=== PATIENT | male | born 1950 | race Caucasian/White ===

== ENCOUNTER 2020-12-06 13:38 | Outpatient (CLI) | payer OTHER, SELFPAY ==
[2020-12-06 14:35] LABS: Erythrocyte Sedimentation Rate 15 mm/hr (0-20)
[2020-12-06 15:42] LABS: Free T4 Free Thyroxine 1.11 ng/mL (0.78-2.19)
[2020-12-07 15:54] LABS: Folic Acid 7.7 ng/mL (2.76->20)
[2020-12-08 14:31] LABS: ANA Cascade Screen Negative (Negative)
== END 2020-12-06 13:39 | disposition home or self-care (01) ==
LOC: ANHLAB 13:40
PROVIDERS: PCP Family Medicine; Visit Provider Nurse Practitioner Gerontology
DX: F03.90 Unspecified dementia, unspecified severity, without behavioral disturbance, psychotic disturbance, mood disturbance, and anxiety (principal)
CPT/HCPCS: 36415; 82607; 82746; 84439; 84443; 85652; 86038

== ENCOUNTER 2021-06-26 09:50 | Outpatient (CLI) | payer OTHER, SELFPAY ==
[2021-06-26 10:44] LABS: Hematocrit 42.3 % (42.0-52.0); Hemoglobin 13.9 g/dL (14.0-18.0); Mean Corpuscular HGB Conc 32.9 g/dl (32-36); Mean Corpuscular Hemoglobin 28.3 pg (26-34); Platelet Count Result 218 k/mm3 (150-375); Red Blood Count 4.92 M/mm3 (4.6-6.20); Red Cell Distribution Width 13.5 % (11.5-14.5); White Blood Count 6.2 K/mm3 (4.5-10.0)
[2021-06-26 10:44] LABS: Add Urine Microscopic? NO; Appearance Urine Clear (Clear); Bilirubin Urine Negative (Negative); Blood Urine Negative (Negative); Color Urine Yellow (Yellow); Glucose Urine UA Negative (Negative); Ketones Urine Negative (Negative); Leukocyte Esterase Ur Negative LEU/UL (NEGATIVE); Nitrate Urine Negative (Negative); Protein Urine Negative (Negative); Specific Grav Ur 1.023 (1.001-1.035); Urobilinogen Urine Negative mg/dL (<2.0)
[2021-06-26 10:57] LABS: Alanine Aminotransferase 16 U/L (4-50); Albumin Level 4.3 g/dL (3.5-5.1); Alkaline Phosphatase 53 U/L (38-126); Anion Gap 7 mmol/L (8-16); Aspartate Amino Transferase 24 U/L (17-59); Bilirubin,Total 0.4 mg/dL (0.2-1.3); Blood Urea Nitrogen 20 mg/dL (9-20); Calcium 8.8 mg/dL (8.4-10.2); Carbon Dioxide 28 mmol/L (22-30); Chloride 107 mmol/L (98-107); Cholesterol 195 mg/dL (0-200); Estimated Glomerular Filt Rate 59; Glucose 96 mg/dL (65-110); HDL Direct 40 mg/dL; Potassium 4.2 mmol/L (3.4-5.0); Sodium 142 mmol/L (137-145); Triglycerides 115 mg/dL (<150)
[2021-06-26 11:12] LABS: LDL Cholesterol Direct 103 mg/dL
[2021-06-26 12:05] LABS: Prostate Specific Antigen 6.9 ng/mL (< OR = 4.0)
== END 2021-06-26 09:51 | disposition home or self-care (01) ==
LOC: ANHLAB 09:53
PROVIDERS: PCP Family Medicine; Visit Provider Family Medicine
DX: E78.5 Hyperlipidemia, unspecified (principal); R35.1 Nocturia
CPT/HCPCS: 36415; 80053; 80061; 81003; 84153; 84443; 85027

== ENCOUNTER 2021-07-03 07:03 | Outpatient (CLI) | payer OTHER, SELFPAY ==
--- NOTE | ~2021-07-03 | CT_ITS ---
EXAMINATION: CT brain wo con EXAM DATE: 07/03/2021 07:23 INDICATION: F03.90 - Unspecified dementia without behavioral disturbance. TECHNIQUE: Spiral CT of the head was performed without contrast. Axial, coronal and sagittal images were reviewed. The dose-length product (DLP) for this examination was 605.33 mGy-cm. The exposure w as tailored according to patient size, and iterative reconstruction (ASIR) was used as additional dos e reduction technique. There is no prior study for comparison. FINDINGS: There is no acute intraparenchymal hemorrhage. No evidence of intraparenchymal brain mass lesion. No evidence of acute infarction. Please note that initial head CT has limited sensitivity f or small or acute infarctions. There is mild periventricular and subcortical hypodensity, nonspecific but probably related to small vessel ischemic disease. There is mild prominence of the sulci and v entricles related to cerebral atrophy. There is intracranial carotid arteriosclerosis. There are n o extra-axial collections. There is no mass effect or midline shift. Patient has had left-sided ocu lar lens surgery. Soft tissue is unremarkable. The visualized sinuses and mastoid air cells are we ll aerated. IMPRESSION: Mild age-related intracranial findings. Reviewed, dictated and finalized at location B.
== END 2021-07-03 07:04 | disposition home or self-care (01) ==
PROVIDERS: PCP Family Medicine; Visit Provider Family Medicine
DX: F03.90 Unspecified dementia, unspecified severity, without behavioral disturbance, psychotic disturbance, mood disturbance, and anxiety (principal); R45.4 Irritability and anger; R93.0 Abnormal findings on diagnostic imaging of skull and head, not elsewhere classified
CPT/HCPCS: 70450

== ENCOUNTER 2021-12-07 13:47 | Outpatient (CLI) | payer OTHER, SELFPAY ==
--- NOTE | ~2021-12-07 | XR_ITS ---
EXAMINATION: XR ribs BI 3V w CXR 2V INDICATION: Intermittent left-sided chest pain TECHNIQUE: PA and lateral views of the chest and 3 views of the bilateral ribs were obtained. COMPARISON: 03/14/2010 FINDINGS: The lungs are free of acute opacities. No pleural effusion or pneumothorax. The cardiomedia stinal silhouette is normal. There is moderate thoracic spondylosis. There are healed bilateral rib f ractures. No definite acute rib fracture is identified. There is partially imaged orthopedic hardware in the distal left humerus. IMPRESSION: 1. No acute cardiopulmonary abnormality or evidence of displaced rib fracture. Reviewed, dictated and finalized at location B.
== END 2021-12-07 13:48 | disposition home or self-care (01) ==
PROVIDERS: PCP Family Medicine; Visit Provider Physician Assistant
DX: R07.89 Other chest pain (principal)
CPT/HCPCS: 71046; 71110

== ENCOUNTER 2022-01-22 08:49 | Outpatient (CLI) | payer OTHER, SELFPAY ==
--- NOTE | ~2022-01-22 | CT_ITS ---
EXAMINATION: CT chest abdomen pelvis w con DATE: 01/22/2022 09:34 INDICATION: Prostate cancer TECHNIQUE: Computed tomography (CT) of the chest, abdomen, and pelvis was performed with 100 CC Omnip aque 350 intravenous contrast. Automated exposure control and iterative reconstruction technique were employed. Exam dose: 616.17 mGy-cm total exam DLP. COMPARISON: None FINDINGS: CHEST CT: There is no pulmonary infiltrate or consolidation or pulmonary mass lesion. Normal heart size. No t horacic aortic aneurysm or dissection. No hilar or mediastinal mass lesion or lymphadenopathy. No pericardial or pleural effusion. Prominent degenerative disc disease at C5-6 and C6-7. There is mild degenerative spurring of the tho racic spine. Bilateral old rib fracture deformities. ABDOMEN/PELVIS CT: 10 mm left hepatic cyst. No other hepatic, splenic, pancreatic, adrenal or renal space occupying mas s lesion is detected. No bile duct or pancreatic duct dilatation. There is a nonobstructing approximately 2 x 3.8 mm lower pole left renal calculus. Normal caliber of the abdominal aorta. No intraperitoneal or retroperitoneal or pelvic mass lesion o r lymphadenopathy or ascites. The prostate gland, urinary bladder and seminal vesicles appear unremarkable. Minimal left colonic diverticulosis; no CT evidence of diverticulitis. Normal appendix. No bowel obst ruction, bowel wall thickening, pneumatosis or intraperitoneal free air. Small bilateral fat-containing inguinal hernias. Multiple old compression fracture deformity of L3. Severe degenerative disease at L5-S1. No suspicious osteolytic or osteoblastic lesions. IMPRESSION: 10 mm left hepatic cyst Nonobstructing 2 x 3.8 mm lower pole left renal calculus Old compression fracture deformity of L3, bilateral old rib fracture deformities Severe degenerative disc disease at L5-S1 Reviewed, dictated and finalized at Location A. Reviewed, dictated and finalized at location A. IMPRESSION: 10 mm left hepatic cyst Nonobstructing 2 x 3.8 mm lower pole left renal calculus Old compression fracture deformity of L3, bilateral old rib fracture deformitie s Severe degenerative disc disease at L5-S1
--- NOTE | ~2022-01-22 | NM_ITS ---
EXAMINATION: NM bone scan whole body DATE: 01/22/2022 13:16 INDICATION: Prostate cancer TECHNIQUE: 23.8 mCi Tc-99m HDP was administered intravenously. Delayed whole-body scintigrams were o btained. COMPARISON: CT chest, abdomen and pelvis dated 01/22/2022 FINDINGS: Likely degenerative joint centered uptake at the right acromioclavicular and right sternoclavicular j oints and at the medial compartments of both knees. No abnormal uptake associated with a sclerotic le malik with spiculated margins of the left supra-acetabular region most likely representing a bone ced nd. No correlate identified on CT for focal mild increased uptake at the posterior tip of the right g reater trochanter. Mild uptake associated with severe degenerative disc disease at C6-C7. No other bell spicious foci of abnormal bone uptake to suggest metastatic disease. IMPRESSION: 1. Single small focus of mild increased uptake at the posterior right greater trochanter which is wit hout evident lytic or blastic bone lesion on the prior radiographs. Furthermore there are no other bell spicious bone lesions to suggest metastatic disease. Location would be most consistent with either en thesopathic in etiology. Reviewed, dictated and finalized at location B. IMPRESSION: 1. Single small focus of mild increased uptake at the posterior right greater t rochanter which is without evident lytic or blastic bone lesion on the prior ra diographs. Furthermore there are no other suspicious bone lesions to suggest me tastatic disease. Location would be most consistent with either enthesopathic i n etiology.
[2022-01-22 13:33] LABS: Estimated Glomerular Filt Rate > 60
== END 2022-01-22 08:50 | disposition home or self-care (01) ==
PROVIDERS: PCP Family Medicine; Visit Provider Radiology Radiation Oncology
DX: C61 Malignant neoplasm of prostate (principal); K76.89 Other specified diseases of liver; N20.0 Calculus of kidney; M51.37 Other intervertebral disc degeneration, lumbosacral region
CPT/HCPCS: 71260; 74177; 78306; A9561; Q9967

== ENCOUNTER 2022-01-30 11:47 | Outpatient (CLI) | payer OTHER, SELFPAY ==
--- NOTE | ~2022-01-30 | XR_ITS ---
EXAM: XR hip RT 2V w AP pelvis DATE: 01/30/2022 12:05 HISTORY: M25.551 - Pain in right hip, NO INJURY, RECENT CHEMO . COMPARISON: None available. FINDINGS: Normal mineralization. No fracture or dislocation. No lytic or blastic lesion. Degenerativ e disc disease in the lower lumbar spine. Mild bilateral hip osteoarthritis. No erosion or periosteal change. Soft tissues within normal limits. IMPRESSION: No acute osseous finding in the pelvis or right hip. Reviewed, dictated and finalized at location K. 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
== END 2022-01-30 11:48 | disposition home or self-care (01) ==
LOC: ANHIMG 11:49
PROVIDERS: PCP Family Medicine; Visit Provider Physician Assistant
DX: M25.551 Pain in right hip (principal)
CPT/HCPCS: 73502

== ENCOUNTER 2022-02-20 09:08 | Outpatient (CLI) | payer OTHER, SELFPAY ==
--- NOTE | ~2022-02-20 | XR_ITS ---
XR shoulder RT min 2V DATE: 02/20/2022 09:33 INDICATION: Right shoulder pain. No recent injury. TECHNIQUE: 4 views COMPARISON: None FINDINGS: There is osteopenia. Normal alignment at the acromioclavicular and glenohumeral joints. No fracture or dislocation, perios teal reaction or bone destruction or clinically significant calcification of the right shoulder joint . IMPRESSION: Osteopenia Reviewed, dictated and finalized at location B. 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
--- NOTE | ~2022-02-20 | XR_ITS ---
XR shoulder LT min 2V DATE: 02/20/2022 09:32 INDICATION: Shoulder pain TECHNIQUE: 4 views COMPARISON: 07/12/2013 left clavicle FINDINGS: Healed old left clavicular fractures including mid shaft and lateral aspect. Old healed lef t rib fractures. Normal alignment at the acromioclavicular and glenohumeral joints. No recent fracture or dislocation. There is osteopenia. No periosteal reaction or bone destruction. No clinically significant abnormal l eft shoulder soft tissue calcification. IMPRESSION: Old healed left clavicle and left rib fractures Osteopenia Reviewed, dictated and finalized at location B. R DISTRIBUTOR
[2022-02-20 09:42] LABS: Basophils Percent Auto 0.3 % (0.2-1.2); Eosinophils Absolute Auto 0.1 K/mm3 (0-0.3); Hematocrit 41.3 % (42.0-52.0); Hemoglobin 13.3 g/dL (14.0-18.0); Immature Granulocyte Absolute 0.03 K/mm3 (0.00-0.031); Immature Granulocyte Percent A 0.3 % (0-0.5); Lymphocytes Absolute Auto 1.45 K/mm3 (0.9-3.2); Lymphocytes Percent Auto 14.2 % (18.3-44.2); Mean Corpuscular HGB Conc 32.2 g/dl (32-36); Mean Corpuscular Hemoglobin 28.1 pg (26-34); Mean Corpuscular Volume 87.1 fl (80-100); Mean Platelet Volume 9.8 fl (7.4-10.4); Monocytes Absolute Auto 0.7 K/mm3 (0.1-0.6); Monocytes Percent Auto 6.5 % (2.6-8.5); Neutrophils Percent Auto 77.7 % (45.5-73.1); Platelet Count Result 276 k/mm3 (150-375); Red Blood Count 4.74 M/mm3 (4.6-6.20); Red Cell Distribution Width 12.7 % (11.5-14.5); White Blood Count 10.2 K/mm3 (4.5-10.0)
[2022-02-20 09:43] LABS: Alanine Aminotransferase 20 U/L (6-50); Alkaline Phosphatase 58 U/L (38-126); Anion Gap 11 mmol/L (8-16); Aspartate Amino Transferase 22 U/L (17-59); Bilirubin,Total 0.5 mg/dL (0.2-1.3); Blood Urea Nitrogen 25 mg/dL (9-20); CRP 2.8 mg/dL (<1.0); Carbon Dioxide 27 mmol/L (22-30); Chloride 103 mmol/L (98-107); Creatine Kinase 28 U/L (55-170); Estimated Glomerular Filt Rate > 60; Glucose 122 mg/dL (65-110); Potassium 4.5 mmol/L (3.4-5.0); Sodium 141 mmol/L (137-145)
[2022-02-20 10:30] LABS: Erythrocyte Sedimentation Rate 63 mm/hr (0-20)
== END 2022-02-20 09:09 | disposition home or self-care (01) ==
PROVIDERS: PCP Family Medicine; Visit Provider Physician Assistant
DX: M25.511 Pain in right shoulder (principal); M25.512 Pain in left shoulder; R29.898 Other symptoms and signs involving the musculoskeletal system; M85.811 Other specified disorders of bone density and structure, right shoulder; M85.812 Other specified disorders of bone density and structure, left shoulder
CPT/HCPCS: 36415; 73030; 80053; 82550; 85025; 85652; 86140

== ENCOUNTER 2022-03-13 14:27 | Outpatient (CLI) | payer OTHER, SELFPAY ==
[2022-03-13 16:37] LABS: Erythrocyte Sedimentation Rate 67 mm/hr (0-20)
== END 2022-03-13 14:28 | disposition home or self-care (01) ==
LOC: ANHLAB 14:28
PROVIDERS: PCP Family Medicine; Visit Provider Family Medicine
DX: M35.3 Polymyalgia rheumatica (principal)
CPT/HCPCS: 36415; 85652

== ENCOUNTER 2022-05-17 09:00 | Outpatient (RCR) | payer OTHER, SELFPAY ==
[2022-03-27 12:36] VITALS: BP_SYST 100; BP_SYST 90
--- NOTE | 2022-03-27 16:52 | BUPTOPEVAL1 ---
Assessment and note entered by Vonnie Kumar, PT Evaluation Information Assessment Status Evaluation Diagnosis Bilat shoulder pain, bilat hand stiffness Subjective Information Pt and (primary caregiver) present for evaluation. Pt reports both shoulder hurt and his hands are stiff. reports at times he has to use both hands to hold a cup because his hands are so stiff. Reported Pain Level Pain Score Moderate Pain: Cleaning Ellis Additional Pain Score Comments Shoulder pain: Pain never goes away completely. Pain increases with laying on shoulders. bilat hands: Pt reports hands feel tight and stiff Assessment PT Clinical Summary Pt presents w/ c/o bialteral shoulder pain, and bilateral hand stiffness. Pt demo's significantly decreased shoulder AROM and PROM R>L with open end -feels and pain. Pt also demos significantly reduced composite flexion R>L hands w/ c/o difficulty holding items at times. Pt and who is also primary caregiver report Pt is currently undergoing chemotherapy 5 days a week, also has a dx of Alzheimer's with behavioral disturbance. Pt and caregiver educated today findings, home exercise and postural awareness, and cryotherapy to reduce inflammation. Pt and caregiver also would prefer to attempt to address hand issues with PT initially while addressing shoulders knowing if therapy is minimally helpful, OT would be an option at a later date. THus considering co- morbidities, pt complaints, and scheduling, ptwould benefit from PT 2x weekly to address bilat shoulder and hand deficits to improve pain and function. Plan of Care Interventions Hot Pack/Cold Pack,Manual Therapy,Neuro Re- education,Paraffin Bath,Patient/Caregiver Educati, Therapeutic Activities,Therapeutic Exercise PT Services Indicated Yes Treatment Frequency and 2x weekly x 4 weeks Duration These treatments will address the objective and functional deficits as defined above. The patient will be advanced safely and appropriately in order for the patient to progress towards his/her prior level of function. Additional exercises will be introduced and as well as a comprehensive home exercise program upon discharge, if needed, ?to ensure carryover of functional gains achieved in the clinic. This treatment plan has been reviewed and agreement upon by the patient.
--- NOTE | 2022-04-05 12:33 | PCPTNOTE ---
Patient called to cancel due to having a bad day with his chemo treatment.
--- NOTE | 2022-04-10 12:04 | PCPTNOTE ---
Patient no showed this date. Attempted to call but no answer.
[2022-04-17 16:39] VITALS: BP_SYST 100; BP_SYST 90
--- NOTE | 2022-04-17 16:56 | PTOPEVAL1 ---
Assessment and note entered by Vonnie Kumar, PT Assessment Status Progress Report Diagnosis Bilat shoulder pain, bilat hand stiffness Subjective Information Pt and (primary caregiver) present for treatment and assists with answering questions. Pt reports hands feeling much better. At rest pt states no pain currently. reports pt states improved pain after using ice but that he brings his pain on himself by laying on right shoulder, not correcting his posture and doing his exercises . Reported Pain Level Pain Score 0: Self Report Assessment PT Clinical Summary Pt demo's improved ease of motion with shoulder ROM today. Demo's less tenderness and less pain with movements and appears less painful. Reports hands feel better. Pt and spouse educated on minimal progress in ROM shown. Educated on additional options such as ortho referral to discussed potential adjuncts to therapy and improve outcomes. Pt's POA/ reports she wants to see pt perform his HEP/posture consistently. Advised pt in written schedule and visual cues to assist pt in remembering/follow through with therapy advise secondary to cognitive status. Educated pt and will do another round of therapy and attempt to further progress ROM however if no significant progress shown, will have to discharge from therapy services. Plan of Care Interventions Hot Pack/Cold Pack,Manual Therapy,Neuro Re- education,Patient/Caregiver Educati,Therapeutic Activities,Therapeutic Exercise PT Services Indicated Yes Treatment Frequency and 2x weekly x 4 weeks Duration These treatments will address the objective and functional deficits as defined above. The patient will be advanced safely and appropriately in order for the patient to progress towards his/her prior level of function. Additional exercises will be introduced and as well as a comprehensive home exercise program upon discharge, if needed, ?to ensure carryover of functional gains achieved in the clinic. This treatment plan has been reviewed and agreement upon by the patient.
[2022-05-17 09:10] VITALS: BP_SYST 110; BP_SYST 93
--- NOTE | 2022-05-17 09:55 | PTOPDC ---
Assessment and note entered by Vonnie Kumar, PT Assessment Status Discharge Diagnosis Bilat shoulder pain Subjective Information Pt present stating was able to accomplish task of lists and post-it notes to assist in remembering required home plan. Pt sees his list and is doing better with exercises. States is also icing well at home. Pt reports has no pain sitting still. Pt reports still has a little pain when sleeping and rolls over on arm. reports pt is groaning less with UE dressing. Pt reports he is less stressed so she thinks new medication has helped with stress thus he is more aware of doing exercises and has less pain. Reported Pain Level Pain Score 0: Self Report Additional Pain Score Comments Reports last week with requiring tylenol arthritis strength, pt will sit on edge of chair and will rock back and forth. Does not come to and state is having pain. She will give him his medication then he will go to bed for the rest of the day. Assessment PT Clinical Summary Pt presents after two rounds of therapy for bilateral shoulder pain. Initial round of therapy pt also c/o hand stiffness and pain which improved significantly with second round of therapy focused on shoulder pain. Pt has shown some minimal improvement in active and passive ROM with bilat shoulders in the second round of therapy however this is marginal. He does appear to have times of less pain as he reports today has no pain at rest. However per he has had recent times when he was in significant levels of pain she does not report as severe. Pt has difficulty initiated pain control methods as he does not let her know when he is in pain nor does he initiate control methods independently thus is difficult to assess levels of intensity of pain reported. Considering difficulty participating in therapy, psychosocial factors, and limited improvement objectively, pt is thus being discharged from therapy due to maximal progress met at this time.
== END 2022-05-18 12:55 | disposition home or self-care (01) ==
LOC: ANHGOSHPT 09:00
PROVIDERS: PCP Family Medicine; Visit Provider Physician Assistant
DX: M25.511 Pain in right shoulder (principal); M25.512 Pain in left shoulder; R29.898 Other symptoms and signs involving the musculoskeletal system
CPT/HCPCS: 97110; 97112; 97140; 97162

== ENCOUNTER 2022-07-27 11:43 | Outpatient (CLI) | payer OTHER, SELFPAY ==
[2022-07-27 12:19] LABS: Appearance Urine Clear (Clear); Bilirubin Urine Negative (Negative); Blood Urine Negative (Negative); Color Urine Dark Yellow (Yellow); Glucose Urine UA Negative (Negative); Ketones Urine Negative (Negative); Leukocyte Esterase Ur Negative LEU/UL (NEGATIVE); Nitrate Urine Negative (Negative); Protein Urine Negative (Negative); Specific Grav Ur 1.021 (1.001-1.035); Urobilinogen Urine 0.2 mg/dL (<2.0)
[2022-07-27 12:19] LABS: Basophils Percent Auto 0.4 % (0.2-1.2); Eosinophils Percent Auto 0.9 % (0-4.4); Hematocrit 39.9 % (42.0-52.0); Hemoglobin 13.2 g/dL (14.0-18.0); Immature Granulocyte Absolute 0.01 K/mm3 (0.00-0.031); Immature Granulocyte Percent A 0.2 % (0-0.5); Lymphocytes Absolute Auto 0.94 K/mm3 (0.9-3.2); Mean Corpuscular HGB Conc 33.1 g/dl (32-36); Mean Corpuscular Hemoglobin 28.6 pg (26-34); Mean Corpuscular Volume 86.6 fl (80-100); Mean Platelet Volume 9.2 fl (7.4-10.4); Monocytes Absolute Auto 0.4 K/mm3 (0.1-0.6); Monocytes Percent Auto 9.8 % (2.6-8.5); Neutrophils Percent Auto 67.7 % (45.5-73.1); Platelet Count Result 202 k/mm3 (150-375); Red Blood Count 4.61 M/mm3 (4.6-6.20); White Blood Count 4.5 K/mm3 (4.5-10.0)
[2022-07-27 12:32] LABS: Add Urine Microscopic? NO
[2022-07-27 14:39] LABS: Iron 88 ug/dL (49-181)
[2022-07-27 14:42] LABS: Sodium 141 mmol/L (137-145)
[2022-07-27 14:48] LABS: Percent Iron Saturation 33 % (20-50)
[2022-07-27 14:50] LABS: Alanine Aminotransferase 24 U/L (6-50); Albumin Level 4.4 g/dL (3.5-5.1); Alkaline Phosphatase 61 U/L (38-126); Anion Gap 9 mmol/L (8-16); Aspartate Amino Transferase 24 U/L (17-59); Bilirubin,Total 0.8 mg/dL (0.2-1.3); Blood Urea Nitrogen 22 mg/dL (9-20); Calcium 9.3 mg/dL (8.4-10.2); Carbon Dioxide 28 mmol/L (22-30); Chloride 104 mmol/L (98-107); Estimated Glomerular Filt Rate > 60; Glucose 109 mg/dL (65-110); Potassium 4.3 mmol/L (3.4-5.0)
[2022-07-27 17:25] LABS: Folic Acid > 20.0 ng/mL (2.76->20)
== END 2022-07-27 11:44 | disposition home or self-care (01) ==
PROVIDERS: PCP Family Medicine; Visit Provider Physician Assistant
DX: Z00.00 Encounter for general adult medical examination without abnormal findings (principal); F03.90 Unspecified dementia, unspecified severity, without behavioral disturbance, psychotic disturbance, mood disturbance, and anxiety; C61 Malignant neoplasm of prostate; D64.9 Anemia, unspecified
CPT/HCPCS: 36415; 80053; 81003; 82607; 82728; 82746; 83540; 83550; 84443; 85025; 87086

== ENCOUNTER 2022-09-18 13:44 | Outpatient (CLI) | payer OTHER, SELFPAY ==
[2022-09-18 14:32] LABS: Erythrocyte Sedimentation Rate 44 mm/hr (0-20)
== END 2022-09-18 13:45 | disposition home or self-care (01) ==
PROVIDERS: PCP Family Medicine; Visit Provider Family Medicine
DX: M35.3 Polymyalgia rheumatica (principal)
CPT/HCPCS: 36415; 85652

== ENCOUNTER 2023-09-17 10:42 | Outpatient (RCR) | payer MEDICARE, OTHER, SELFPAY ==
[2023-09-17 10:58] VITALS: BMI 29.4
== END 2023-12-06 08:58 | disposition home or self-care (01) ==
LOC: ANHDMC 10:42
PROVIDERS: PCP Family Medicine; Visit Provider Physician Assistant
DX: E66.3 Overweight (principal); G30.9 Alzheimer's disease, unspecified; F02.818 Dementia in other diseases classified elsewhere, unspecified severity, with other behavioral disturbance; Z71.3 Dietary counseling and surveillance
CPT/HCPCS: 97802

== ENCOUNTER 2023-09-19 13:12 | Outpatient (CLI) | payer MEDICARE, SELFPAY ==
--- NOTE | ~2023-09-19 | XR_ITS ---
EXAM: XR knee LT min 4V DATE: 09/19/2023 13:47 HISTORY: M25.562 - Pain in left knee . COMPARISON: None available. FINDINGS: Decreased mineralization. No fracture or dislocation. No lytic or blastic lesion. Severe m edial joint space narrowing. Mild tricompartmental osteophytosis. No erosion or periosteal change. So ft tissues within normal limits. Linear radiopacity in the midline and lateral tibial plateau extendi ng towards the tibial spine, may represent surgical hardware or less likely a radiopaque foreign body . IMPRESSION: Tricompartmental osteoarthritis, severe in the medial compartment. Postsurgical hardware versus radiopaque foreign body, correlate with surgical and trauma history. Reviewed, dictated and finalized at location K. IMPRESSION: Tricompartmental osteoarthritis, severe in the medial compartment. Postsurgical hardware versus radiopaque foreign body, correlate with surgical a nd trauma history.
== END 2023-09-19 13:13 ==
PROVIDERS: PCP Family Medicine; Visit Provider Physician Assistant
DX: M17.12 Unilateral primary osteoarthritis, left knee (principal)
CPT/HCPCS: 73564

== ENCOUNTER 2024-03-12 10:48 | Outpatient (CLI) | payer MEDICARE, OTHER, SELFPAY ==
[2024-03-12 12:00] LABS: Add Urine Microscopic? YES; Appearance Urine Clear (Clear); Bacteria Urine None Seen /hpf; Bilirubin Urine Negative (Negative); Blood Urine Negative (Negative); Color Urine Dark Yellow (Yellow); Glucose Urine UA Negative (Negative); Ketones Urine Trace mg/dL (Negative); Leukocyte Esterase Ur 1+ LEU/UL (Negative); Nitrate Urine Negative (Negative); Non Pathogenic Casts 0-2; Protein Urine Trace mg/dL (Negative); RBC Urine 0-2 /hpf (0-2); Specific Grav Ur 1.023 (1.001-1.035); Squamous Epithelial Cell Urine None Seen /hpf (Few); Urobilinogen Urine 0.2 mg/dL (<2.0)
[2024-03-12 12:16] LABS: Alanine Aminotransferase 18 U/L (6-50); Albumin Level 4.2 g/dL (3.5-5.1); Alkaline Phosphatase 71 U/L (38-126); Anion Gap 6 mmol/L (4-12); Aspartate Amino Transferase 22 U/L (17-59); Bilirubin,Total 0.7 mg/dL (0.2-1.3); Blood Urea Nitrogen 19 mg/dL (9-20); Carbon Dioxide 26 mmol/L (22-30); Chloride 112 mmol/L (98-107); Cholesterol 215 mg/dL (0-200); Estimated Glomerular Filt Rate > 60; Glucose 129 mg/dL (65-110); HDL Direct 30 mg/dL; Potassium 4.2 mmol/L (3.4-5.0); Sodium 144 mmol/L (137-145); Triglycerides 338 mg/dL (<150)
[2024-03-12 12:28] LABS: LDL Cholesterol Direct 109 mg/dL
== END 2024-03-12 10:49 | disposition home or self-care (01) ==
PROVIDERS: PCP Family Medicine; Visit Provider Physician Assistant
DX: E78.5 Hyperlipidemia, unspecified (principal); G30.9 Alzheimer's disease, unspecified; F02.818 Dementia in other diseases classified elsewhere, unspecified severity, with other behavioral disturbance; Z00.00 Encounter for general adult medical examination without abnormal findings; F02.80 Dementia in other diseases classified elsewhere, unspecified severity, without behavioral disturbance, psychotic disturbance, mood disturbance, and anxiety
CPT/HCPCS: 36415; 80053; 80061; 81001

== ENCOUNTER 2024-08-04 10:03 | Outpatient (CLI) | payer MEDICARE, OTHER, SELFPAY ==
--- OUTSIDE RECORDS SUMMARY | 2024-08-04 10:18 | XMS_ITS ---
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 This section includes the names of all active insurance providers for the patient. Insurance Provider Type of Coverage Plan Name Start of Policy Coverage End of Policy Coverage Group Number Member ID Insurance Provider's Telephone Number Policy Newby's Name Patient's Relationship to Policy Newby MEDICARE (WNR) [place]ICARE [place]) PART A Feb 22, 2014 PART A [id number] LUKAS TREVINO PATIENT Selected Encounter This section includes the information on record at [place] for the Encounter. Date/Time Encounter Type Encounter Description Reason Pro vider Source Jul 06, 2024 09:00 AM OFFICE O/P EST MOD 30 MIN PSYCHOGERIATRIC - INDIVIDUAL ICD-10-CM F03.90 Unsp dementia, unsp severity, without beh/psych/moo d/anx GURUSIDDALESHA,P RATIBHA N IHE Encounter Template Text not used by [facility] Assessments - Encounter Diagnoses This section includes the primary and secondary diagnoses documented for the Encounter. Date/Time Primary/Secondary Diagnosis Diagnosis Name Provider Source Jul 06, 2024 09:36 AM PRIMARY Unsp dementia, unsp severity, without beh/psych/mood/a nx YLOANDACO ATIBTRINITY N [facility] Plan of Treatment: Future Appointments (+ 6 months) and Future Tests (+/- 45 days) The Plan of Treatment section includes [facility] care activities for the [facility] [place] [facility] This section includes future appointments and future orders which are active, pending or scheduled. Future Appointments This section includes appointments that were scheduled to occur 6 months from the date of the Encounter, up to a maximum of 20 appointments. The data comes from all [facility]. Appointment Date/Time Appointment Type Appointme nt Facility Name July 24, 2024 10:00 AM AMBULATORY - MEDICINE [facility] Oct 13, 2024 10:00 AM AMBULATORY - REHAB MEDICIN E [facility] Nov 09, 2024 09:00 AM AMBULATORY - NONE [facility] Active, Pending, and Scheduled Orders This section includes a listing of several types of active, pending, and scheduled orders, including clinic medications orders, diagnostic test orders, procedure orders and consult orders; where the start date of the order is 45 days before the date of the Encounter or 45 days after the date of theEncounter. The data comes from all [facility]. Test Date/Time Test Type Test Details Facility Name May 26, 2024 10:19 AM Consult Order [facility]/HOME HEALTH AIDE [facility] Cons Marine [employer] Consultant's Choice [facility] Social History: Smoking Status (Most current) and Tobacco Use (All prior to encounter date) This section includes the most current, and the historical, smoking and tobacco- related health factors from the [place] facility where the Encounter took place. Current Smoking Status This section includes the most current smoking, or tobacco-related health factor, from the [place] facility where the Encounter took place. Date/Time Current Smoking Status Comment Facil ity Apr 14, 2024 11:00 AM [place]-TOBACCO NEVER [place] SED CIGARETTES [facility] Tobacco Use History This section includes a history of the smoking, or tobacco-related health factors, that were collected on or before the date of the Encounter. The data comes from the [place] facility where the Encounter took place. Date/Time Smoking Status/Tobacco Use Comment F acility Apr 14, 2024 11:00 AM [facility] TYPE [facility] Advance Directives: All historical and current Section Date Range: From patient's date of to the date document was created. This section includes ALL of a patient's completed or amended [place] Advance and Rescinded Directives. The entries below indicate that a directive exists for the patient, but an actual copy is not included with this document. The data comes from all [place] facilities. Date Advance Directives Provider Source Mar 15, 2023 ADVANCE DIRECTIVE BINU SWANSON CLAIR [facility] Encounter Notes: All associated encounter notes This section contains the clinical notes associated to the Encounter. Date/Time Encounter Note(s) Provider Source Jul 06, 2024 09:02 AM MENTAL HEALTH NOTE : LOCAL TITLE: [facility] CC NEEDS ASSESSMENT AND INTERVENTION PLAN STANDARD TITLE: MENTAL HEALTH NOTE DATE OF NOTE: JUL 06, 2024@09:02 ENTRY DATE: JUL 06, 2024@09:02:31 AUTHOR: OLIVIA SLADE COSIGNER: URGENCY: STATUS: COMPLETED Visit conducted by synchronous telehealth. Patient verbal consent obtained. Location/emergency number confirmed. Environment surveyed and all participants identified. Virtual conference room locked. Minden confirmed being in a private and safe space. Minden's location during session: Home: [address] [place] [address] [place] [address] Minden's telephone number during session: Emergency number for 's location during session: Phone: E911 (national) [phone] Follow-up [facility] Care Coordination Intervention Plan Assessment and review of interventions in progress: SIGNIFICANT CHANGES TO CARE COORDINATION NEEDS: Current assessed care coordination needs: Follow-up as clinically indicated: reminders Time spent: 5 minutes V15-[facility] Video Connect/Video to Home: [facility] Video Connect (VVC)/Video to home template v1.5 Visit conducted by synchronous telehealth. Location/emergency number confirmed. Environment surveyed and all participants identified. Virtual conference room locked. VVC/Video to home appointment information: The following items were reviewed: - The nature of telehealth, its benefits, and risks. - Confidentiality and its limits. - The importance of having a confidential location for the service. - The emergency plan. - The appointment should be treated like an in person appointment (no smoking or driving during session, showing up fully dressed, etc.) *The Virtual Medical Room was locked for this encounter. *A survey of the environment was conducted and it is appropriate to conduct a VVC appointment. *Confirmed Minden's Non-VA location for this appointment: 's Home [address] [place] [address] Address and phone number verified with . Address: Phone: Emergency Contact: Name: Mahesh Others were present at this appointment(caregiver, family member, etc.) Details: see above and caregiver is also part of VVC appt * was notified of right to decline Telehealth services and eligibility for other options. consented to be seen via VVC. EMERGENCY PLAN In the event of an emergency, the Minden or family will call emergency services, if capable. The Teleprovider will remain in the virtual medical room until emergency response arrives and handoff to emergency services is complete. If is unable to make emergency call, the Teleprovider is to call the national E911 service at [phone] and ask to be connected to emergency services for the 's location. Minden's Crisis Line: Dial [phone] then press 1, or text [phone] Office of Connected Care Helpdesk ([facility]): [phone] or [phone] Laterality (patient's right and/or left side) confirmed prior to intervention during video visit. Verified Provider's location and contact information for this appointment: [address] [address] x [phone] /es/ OLIVIA SLADE RN Registered Nurse Signed: 07/06/2024 09:06 OLIVIA SLADE [facility] Jul 06, 2024 07:54 AM PSYCHIATRY OUTPATI ENT NOTE: LOCAL TITLE: MENTAL HEALTH [facility]ING RESOURCES TEAM ST STANDARD TITLE: PSYCHIATRY OUTPATIENT NOTE DATE OF NOTE: JUL 06, 2024@07:54 ENTRY DATE: JUL 06, 2024@07:54:35 AUTHOR: KELSY GUERRERO COSIGNER: URGENCY: STATUS: COMPLETED [facility] Video Connect (VVC)/Video to home template v1.5 Visit conducted by synchronous telehealth. Location/emergency number confirmed. Environment surveyed and all participants identified. Virtual conference room locked. VVC/Video to home appointment information: The following items were reviewed: - The nature of telehealth, its benefits, and risks. - Confidentiality and its limits. - The importance of having a confidential location for the service. - The emergency plan. - The appointment should be treated like an in person appointment (no smoking or driving during session, showing up fully dressed, etc.) *The Virtual Medical Room was locked for this encounter. *A survey of the environment was conducted and it is appropriate to conduct a VVC appointment. *Confirmed Minden's Non-VA location for this appointment: 's Home [address] [place] [address] Address and phone number verified with Minden. Address: Phone: Emergency Contact: Name: ,caregiver . Phone: Others were present at this appointment(caregiver, family member, etc.) Details: and caregiver. *Minden was notified of right to decline Telehealth services and eligibility for other options. consented to be seen via VVC. EMERGENCY PLAN In the event of an emergency, the or family will call emergency services, if capable. The Teleprovider will remain in the virtual medical room until emergency response arrives and handoff to emergency services is complete. If is unable to make emergency call, the Teleprovider is to call the national E911 service at [phone] and ask to be connected to emergency services for the Minden's location. Mind[place]'s Crisis Line: Dial [phone] then press 1, or text [phone] Office of Connected Care Helpdesk ([facility]): [phone] or [phone] Laterality (patient's right and/or left side) confirmed prior to intervention during video visit. Verified Provider's location and contact information for this appointment: [place] [address] x [facility] Name..................LUKAS THACKER CHRISTINE Age...................73 Sex...................MALE SSN................... Today's Date..........JUL 06, 2024 Service Connection....Service Connected: Yes (50%) ALLERGIES: Patient has answered NKA OUTPATIENT MEDICATIONS: Active Outpatient Medications (excluding Supplies): Issue Date Status Last Fill Active Outpatient Medications Refills Expiration 1) ARIPIPRAZOLE 10MG TAB Qty: 15 for 30 ACTIVE Issu:04-16-23 days Sig: TAKE ONE-HALF TABLET BY Refills: 1 Last:04-16-23 MOUTH ONCE A DAY MOOD STABLIZER Expr:04-16-24 2) ATORVASTATIN CALCIUM 40MG TAB Qty: 45 ACTIVE Issu:04-15-23 for 90 days Sig: TAKE ONE-HALF TABLET Refills: 1 Last:04-16-23 BY MOUTH EVERY EVENING Expr:04-15-24 3) CHOLECALCIF 50MCG (D3-2,000UNIT) TAB ACTIVE Issu:04-15-23 Qty: 100 for 90 days Sig: TAKE ONE Refills: 2 Last:04-16-23 TABLET BY MOUTH ONCE A DAY Expr:04-15-24 4) DONEPEZIL HCL 10MG TAB Qty: 30 for 30 ACTIVE Issu:04-09-23 days Sig: TAKE ONE TABLET BY MOUTH AT Refills: 1 Last:04-09-23 BEDTIME FOR ALZHEIMER DISEASE (JUST Expr:04-09-24 BEFORE BEDTIME) 5) ESCITALOPRAM OXALATE 20MG TAB Qty: 15 ACTIVE Issu:04-09-23 for 30 days Sig: TAKE ONE-HALF TABLET Refills: 1 Last:04-09-23 BY MOUTH ONCE A DAY FOR DEPRESSION Expr:04-09-24 6) MEMANTINE HCL 10MG TAB Qty: 180 for 90 ACTIVE Issu:04-09-23 days Sig: TAKE ONE TABLET BY MOUTH Refills: 3 Last:04-09-23 EVERY MORNING AND EVENING Expr:04-09-24 7) MULTIVITAMIN CAP/TAB Qty: 100 for 90 ACTIVE Issu:03-13-23 days Sig: TAKE 1 TABLET BY MOUTH ONCE Refills: 1 Last:03-13-23 A DAY FOR NUTRITION/DIETARY Expr:03-13-24 SUPPLEMENTATION Issue Date Status Last Fill Pending Outpatient Medications Refills Expiration 1) ARIPIPRAZOLE 10MG TAB Qty: 15 Sig: PENDING TAKE ONE-HALF TABLET BY MOUTH ONCE A Refills: 0 DAY 2) DIVALPROEX NA 125MG SPRINKLE CAP Qty: PENDING 120 Sig: TAKE TWO CAPSULES CONTENT Refills: 0 OVER FOOD BY MOUTH AT BEDTIME 9 Total Medications PROBLEM LIST: 1) Exposure to potentially hazardous substance 2) Dementia ([facility] [id number]) VITAL SIGNS: Pulse.................84 (04/10/2023 12:43) Temperature...........97.9 F [36.6 C] (04/10/2023 12:43) Blood Pressure........135/90 (04/10/2023 12:43) Pain..................0 (04/10/2023 12:43) Weight................211. 4 lb [95.89 kg] (04/10/2023 12:43) Patient Weight History - Last Four 1. 211.4 lbs. / 95.9 kg. on APR 10, 2023@12:43:05 2. 213.6 lbs. / 96.9 kg. on MAR 13, 2023@08:34:58 LAB VALUES: CBC WBC 5.7 10*3/uL 03/13/2023 10:15 RBC 4.96 10*6/uL 03/13/2023 10:15 HGB 14.2 g/dL 03/13/2023 10:15 HCT 43.7 % 03/13/2023 10:15 MCV 88.1 fL 03/13/2023 10:15 MCH 28.6 pg 03/13/2023 10:15 MCHC 32.5 L g/dL 03/13/2023 10:15 RDW 13.2 % 03/13/2023 10:15 PLT 210 10*3/uL 03/13/2023 10:15 MPV 10.2 fL 03/13/2023 10:15 NEUTROPHILS, AUTO % 75 % 03/13/2023 10:15 LYMPHOCYTES, AUTO % 16 % 03/13/2023 10:15 MONOCYTES, AUTO % 8 % 03/13/2023 10:15 EOSINOPHILS, AUTO % 1 % 03/13/2023 10:15 BASOPHILS, AUTO % 1 % 03/13/2023 10:15 NEUTROPHILS, ABSOLUTE 4.29 10*3/uL 03/13/2023 10:15 LYMPHOCYTES, ABSOLUTE 0.89 10*3/uL 03/13/2023 10:15 MONOCYTES, ABSOLUTE 0.45 10*3/uL 03/13/2023 10:15 EOSINOPHILS, ABSOLUTE 0.05 10*3/uL 03/13/2023 10:15 BASOPHILS, ABSOLUTE 0.04 10*3/uL 03/13/2023 10:15 CHEM 7 SODIUM 140 mEq/L 03/13/2023 10:15 POTASSIUM 4.1 mEq/L 03/13/2023 10:15 CHLORIDE 107 mEq/L 03/13/2023 10:15 UREA NITROGEN 15.2 mg/dL 03/13/2023 10:15 CREATININE 1.09 mg/dL 03/13/2023 10:15 CALCIUM 9.3 mg/dL 03/13/2023 10:15 CARBON DIOXIDE 24 mEq/L 03/13/2023 10:15 GLUCOSE 112 H mg/dL 03/13/2023 10:15 EGFR (CKD-EPI 2020) 71.2 03/13/2023 10:15 HEPATIC PANEL No data available TRIGLYCERIDES...273 mg/dL H (03/13/23 10:15) CHOLESTEROL.....CHOLESTERO L 212 H mg/dL 03/13/2023 10:15 TSH.............TSH 1.862 uIU/mL 03/13/2023 10:15 LITHIUM.........____ VALPROIC ACID...____ DIAGNOSIS BEING TREATED THIS VISIT: Major NCD severe with behavioral disturbances ANY COMPLAINTS/PROBLEMS....... No initial eval mar 2023 72yrs old white male with no prior psych admission, no h/o substance abuse, family h/o dementia-late onset. has h/o poor memory for past 10/12yrs with worsening memory and behavioral problems in past 2-3yrs. seen by private psychiatrist and has been treated with psychotropic meds with good control of mood and behavior. Seen in our clinic for medication management. seen today for f/u with and he reports doing fine and denies any problems. is dysphasic with limited verbal communications. He denies any pain or discomofort. denies being anxious or depressed. no psychotic symptoms reported. no agitation. reports that last week, had walker out of the front door, but she could find found him their front yard and had to bring him back inside as the weather was cold. also reports that the did not sleep without the TV and so she talked to pcp and he has TV during his bedtime and is sleeping well. He is eating well and compliant with meds. Denies any agitation or aggression. seen sitting next to was alert, calm, cooperative, nonspontaneous and minimal speech . not oriented to to place or time . Denies feeling anxious or depressed and denies any psychotic symptoms. is primary caregiver and also has cargiver come and help him 3days a week. dispenses meds and he is compliant. ANY MEDICATION SIDE EFFECT....No APPETITE.................. ....Good SLEEP..................... ....Good MENTAL STATUS: MOOD/AFFECT............... ..Normal mood- alright affect- calm ,appropriate. DELUSIONS/HALLUCINATIONS.. ..Absent denies SUICIDAL/AGGRESSIVE....... ..Absent denies ALERT & ORIENTED X3 WITH GOOD CONCENTRATION........No COMMENTS: None MEDICATION CHANGE.............No SUPPORTIVE PSYCHOTHERAPY......Yes GAF:No previous GAF entered. Current Gaf: na TREATMENT PLAN: COMMENTS: NCD/behavioral problems- continues same meds- Discussed with that it reportedly sleeping now with TV in room. Wandered outside the house last week. to change lokcs on exit doors and will order ID bracelet. f/u in 3months. call if problems before that. INSTRUCTIONS GIVEN TO PATIENT/FAMILY: Report medication side effects promptly No alcohol/illicit drug use with medication Follow up with Primary Care Provider If symptoms get worse, call clinic or Emergency Room as appropriate seen for total of 30min with 18min of supportive therapu /es/ JESUS GUERRERO MD Staff Physician, Psychiatry Signed: 07/06/2024 09:36 KELSY GUERRERO [facility]
--- OUTSIDE RECORDS SUMMARY | 2024-08-04 10:18 | XMS_ITS | Continuity of Care Document ---
Author Name [facility] Organization [facility] Care Team Providers Care Skip Hoist Operator Name Role Phone [facility] Unavailable Unavailable Problems Combined list of problems from Department of Defense and Veterans Affairs facilities. It does not include entries that were removed or entered in error. 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 Diagnosis [facility] Diagnosis: ICD-10-CM F03.918 Unsp dementia, unsp severity, with other behavioral disturb Active Diagnosis [facility] Diagnosis: ICD-10-CM F02.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, unsp sev, with oth beh distrb Active Diagnosis [facility] Diagnosis: ICD-10-CM F02.B18 Dem in other dis classd elswhr, mod, with other beh disturb Active Diagnosis [facility] Diagnosis: ICD-10-CM Z71.9 Counseling, unspecified Active Diagnosis [facility] Diagnosis: ICD-10-CM Z23 Encounter for immunization Active Diagnosis [facility] Medications Combined list of outpatient medications from Department of [facility] and [facility] facilities.Medications provided include 1) outpatient medications from the last 15 months, and 2) patient-reported medications. Medication Details Route Status Patient Instructions Prescription Expires Prescription Number Last Dispense Date Ordering Provider Order Date Order Qty Source ARIPIPRAZOL E 10MG TAB TAKE ONE-HALF TABLET BY MOUTH ONCE A DAY MOOD STABLIZE R ORAL DISCONT INUED 05/21/2024 [id number] RAE BENITEZPRATI BHA N 2023 15 [facility] ARIPIPRAZOL E 5MG TAB TAKE ONE TABLET BY MOUTH ONCE A DAY MOOD STABLIZE R ORAL ACTIVE 07/07/2025 [id number] 5 GURUSIDDA EMMANUELPRATI BHA N 2024 30 [facility] ARIPIPRAZOL E 5MG TAB TAKE ONE TABLET BY MOUTH ONCE A DAY MOOD STABLIZE R ORAL DISCONT INUED 07/28/2024 [id number] 5 SIDDJoaquin BENITEZPRATI BHA N 2024 30 [facility] ARIPIPRAZOL E 5MG TAB TAKE ONE TABLET BY MOUTH ONCE A DAY MOOD STABLIZE R ORAL DISCONT INUED 07/01/2024 [id number] 5 GURUSIDDA EMMANUELPRATI BHA N 2024 30 [facility] ARIPIPRAZOL E 5MG TAB TAKE ONE TABLET BY MOUTH ONCE A DAY MOOD STABLIZE R ORAL DISCONT INUED 05/07/2024 [id number] 5 GURUSIDDA EMMANUELPRATI BHA N 2024 30 [facility] ARIPIPRAZOL E 5MG TAB TAKE ONE TABLET BY MOUTH ONCE A DAY MOOD STABLIZE R ORAL DISCONT INUED 04/30/2024 [id number] 5 DELICIA MIGUEL ACE M 2024 30 [facility] ARIPIPRAZOL E 5MG TAB TAKE ONE TABLET BY MOUTH ONCE A DAY MOOD STABLIZE R ORAL DISCONT INUED 03/26/2024 [id number] 4 DELICIA MIGUEL ACE M 2023 30 [facility] ARIPIPRAZOL E 5MG TAB TAKE ONE TABLET BY MOUTH ONCE A DAY MOOD STABLIZE R ORAL DISCONT INUED 02/21/2024 [id number] LAMONT,HOR DONI M 2023 30 [facility] ARIPIPRAZOL E 5MG TAB TAKE ONE TABLET BY MOUTH ONCE A DAY MOOD STABLIZE R ORAL DISCONT INUED 01/19/2024 [id number] LAMONT,HOR DONI M 2023 30 [facility] ARIPIPRAZOL E 5MG TAB TAKE ONE TABLET BY MOUTH ONCE A DAY MOOD STABLIZE R ORAL DISCONT INUED 10/05/2023 [id number] 4 LAMONT,HOR DONI M 2023 30 [facility] ARIPIPRAZOL E 5MG TAB TAKE ONE TABLET BY MOUTH ONCE A DAY MOOD STABLIZE R ORAL DISCONT INUED 06/20/2023 [id number] ADA BELTRAN BHA N 2023 30 [facility] ATORVASTATI N CA 40MG TAB TAKE ONE-HALF TABLET BY MOUTH EVERY EVENING ORAL ACTIVE 05/14/2025 [id number] 5 LAMONT,DELICIA DONI M 2024 45 [facility] ATORVASTATI N CA 40MG TAB TAKE ONE-HALF TABLET BY MOUTH EVERY EVENING ORAL DISCONT INUED 04/15/2024 [id number] OKIN KAYLEIGH D 2023 45 [facility] DIVALPROEX NA 125MG CAP,SPRINKL E TAKE ONE CAPSULE CONTENT OVER FOOD BY MOUTH AT BEDTIME AND TAKE ONE CAPSULE EVERY MORNING NEEDED ORAL ACTIVE 04/08/2025 [id number] ADA BELTRAN BHA N 2024 60 [facility] DIVALPROEX NA 125MG CAP,SPRINKL E TAKE ONE CAPSULE CONTENT OVER FOOD BY MOUTH AT BEDTIME AND TAKE ONE CAPSULE EVERY MORNING NEEDED ORAL DISCONT INUED (EDIT) 12/26/2024 [id number] 4 SIDDA EMMANUELPRATI BHA N 2023 60 [facility] DIVALPROEX NA 125MG CAP,SPRINKL E TAKE ONE CAPSULE CONTENT OVER FOOD BY MOUTH AT BEDTIME MOOD ORAL DISCONT INUED BY PROVIDE R 09/02/2024 [id number] 4 GURUSIDDA EMMANUELPRATI BHA N 2023 60 [facility] DIVALPROEX NA 125MG CAP,SPRINKL E TAKE TWO CAPSULES CONTENT OVER FOOD BY MOUTH AT BEDTIME ORAL DISCONT INUED (EDIT) 05/21/2024 [id number] 4 SIDDJoaquin BENITEZPRATI BHA N 2023 120 [facility] DIVALPROEX NA 250MG TAB,SA TAKE ONE TABLET BY MOUTH ONCE A DAY FOR BIPOLAR DISORDER ORAL DISCONT INUED BY PROVIDE R 05/08/2024 [id number] 4 SIDDA EMMANUELPRATI BHA N 2023 30 [facility] N DONEPEZIL HCL 10MG TAB TAKE ONE TABLET BY MOUTH AT BEDTIME FOR ALZHEIME R DISEASE (JUST BEFORE BEDTIME) ORAL ACTIVE 07/07/2025 [id number] 5 GURUSIDDA EMMANUELPRATI BHA N 2024 90 [facility] DONEPEZIL HCL 10MG TAB TAKE ONE TABLET BY MOUTH AT BEDTIME FOR ALZHEIME R DISEASE (JUST BEFORE BEDTIME) ORAL DISCONT INUED 07/06/2024 [id number] 5 GURUSIDDA EMMANUELPRATI BHA N 2024 90 [facility] DONEPEZIL HCL 10MG TAB TAKE ONE TABLET BY MOUTH AT BEDTIME FOR ALZHEIME R DISEASE (JUST BEFORE BEDTIME) ORAL DISCONT INUED 04/19/2024 [id number] 4 ADA BELTRAN BHA N 2023 90 [facility] DONEPEZIL HCL 10MG TAB TAKE ONE TABLET BY MOUTH AT BEDTIME FOR ALZHEIME R DISEASE (JUST BEFORE BEDTIME) ORAL DISCONT INUED 02/02/2024 [id number] 4 SIADA TUCKER BHA N 2023 90 [facility] DONEPEZIL HCL 10MG TAB TAKE ONE TABLET BY MOUTH AT BEDTIME FOR ALZHEIME R DISEASE (JUST BEFORE BEDTIME) ORAL DISCONT INUED 12/01/2023 [id number] 4 ADA BELTRAN BHA N 2023 90 [facility] DONEPEZIL HCL 10MG TAB TAKE ONE TABLET BY MOUTH AT BEDTIME FOR ALZHEIME R DISEASE (JUST BEFORE BEDTIME) ORAL DISCONT INUED 11/26/2023 [id number] 4 SIADA TUCKER BHA N 2023 90 [facility] DONEPEZIL HCL 10MG TAB TAKE ONE TABLET BY MOUTH AT BEDTIME FOR ALZHEIME R DISEASE (JUST BEFORE BEDTIME) ORAL DISCONT INUED 11/23/2023 [id number] 4 SIADA TUCKER BHA N 2023 90 [facility] DONEPEZIL HCL 10MG TAB TAKE ONE TABLET BY MOUTH AT BEDTIME FOR ALZHEIME R DISEASE (JUST BEFORE BEDTIME) ORAL DISCONT INUED 04/09/2024 [id number] 4 SIADA TUCKER BHA N 2023 30 [facility] ESCITALOPRA M OXALATE 20MG TAB TAKE ONE-HALF TABLET BY MOUTH ONCE A DAY FOR DEPRESSI ON ORAL ACTIVE 07/07/2025 [id number] 5 GURUSIDDA EMMANUELPRATI BHA N 2024 45 [facility] ESCITALOPRA M OXALATE 20MG TAB TAKE ONE-HALF TABLET BY MOUTH ONCE A DAY FOR DEPRESSI ON ORAL DISCONT INUED 07/06/2024 [id number] 5 GURUSIDDA EMMANUELPRATI BHA N 2024 45 [facility] ESCITALOPRA M OXALATE 20MG TAB TAKE ONE-HALF TABLET BY MOUTH ONCE A DAY FOR DEPRESSI ON ORAL DISCONT INUED 01/20/2025 [id number] 4 GURUSIDDA EMMANUELPRATI BHA N 2023 15 [facility] ESCITALOPRA M OXALATE 20MG TAB TAKE ONE-HALF TABLET BY MOUTH ONCE A DAY FOR DEPRESSI ON ORAL DISCONT INUED 07/04/2024 [id number] 5 GURUSIDDA EMMANUELPRATI BHA N 2024 45 [facility] ESCITALOPRA M OXALATE 20MG TAB TAKE ONE-HALF TABLET BY MOUTH ONCE A DAY FOR DEPRESSI ON ORAL DISCONT INUED 01/08/2025 [id number] 4 GURUSIDDA EMMANUELPRATI BHA N 2023 15 [facility] ESCITALOPRA M OXALATE 20MG TAB TAKE ONE-HALF TABLET BY MOUTH ONCE A DAY FOR DEPRESSI ON ORAL DISCONT INUED 11/04/2024 [id number] 4 GURUSIDDA EMMANUEL,PRATI BHA N 2023 15 [facility] ESCITALOPRA M OXALATE 20MG TAB TAKE ONE-HALF TABLET BY MOUTH ONCE A DAY FOR DEPRESSI ON ORAL DISCONT INUED 09/02/2024 [id number] 4 GURUSIDDA EMMANUEL,PRATI BHA N 2023 15 [facility] ESCITALOPRA M OXALATE 20MG TAB TAKE ONE-HALF TABLET BY MOUTH ONCE A DAY FOR DEPRESSI ON ORAL DISCONT INUED 07/22/2024 [id number] 4 SIIVAN TUCKERTI BHA N 2023 15 [facility] ESCITALOPRA M OXALATE 20MG TAB TAKE ONE-HALF TABLET BY MOUTH ONCE A DAY FOR DEPRESSI ON ORAL DISCONT INUED 04/09/2024 [id number] 4 SIKARL BENITEZPRATI BHA N 2023 15 [facility] MEMANTINE HCL 10MG TAB TAKE ONE TABLET BY MOUTH EVERY MORNING AND EVENING ORAL ACTIVE 04/08/2025 [id number] 5 RAE BENITEZPRASCARLET BHA N 2024 180 [facility] MEMANTINE HCL 10MG TAB TAKE ONE TABLET BY MOUTH EVERY MORNING AND EVENING ORAL DISCONT INUED 01/20/2025 [id number] 4 RAE BENITEZPRATI BHA N 2023 180 [facility] MEMANTINE HCL 10MG TAB TAKE ONE TABLET BY MOUTH EVERY MORNING AND EVENING ORAL DISCONT INUED 11/04/2024 [id number] 4 RAE BENITEZPRATI BHA N 2023 180 [facility] MEMANTINE HCL 10MG TAB TAKE ONE TABLET BY MOUTH EVERY MORNING AND EVENING ORAL DISCONT INUED 04/09/2024 [id number] RAE BENITEZPRATI BHA N 2023 180 [facility] MULTIVITAMI NS CAP/TAB TAKE 1 TABLET BY MOUTH ONCE A DAY FOR NUTRITIO N/DIETAR Y SUPPLEME NTATION ORAL SUSPEND ED 07/28/2025 [id number] 5 ARIEL EUCEDA D 2024 100 [facility] MULTIVITAMI NS CAP/TAB TAKE 1 TABLET BY MOUTH ONCE A DAY FOR NUTRITIO N/DIETAR Y SUPPLEME NTATION ORAL DISCONT INUED 12/24/2024 [id number] 5 OK,IN GRID D 2023 100 [facility] MULTIVITAMI NS CAP/TAB TAKE 1 TABLET BY MOUTH ONCE A DAY FOR NUTRITIO N/DIETAR Y SUPPLEME NTATION ORAL DISCONT INUED 03/13/2024 [id number] 4 KO,IN GRID D 2022 100 [facility] Immunizations Combined list of available immunizations from the Department of Defense and Veterans Affairs facilities. Immunization Series Date Given Administered By Site Reaction Lot Number CVX Code Drug Director Of Recruiting Status Comments Source COVID-19 (PFIZER), MRNA, LNP-S, PF, IMANI-SUCROSE, 30 MCG/0.3 ML (AGES 12+ YEARS) 2024 CHAVO BOTELLO LEFT DELTO ID [id number] 309 complet ed [facility] N INFLUENZA, HIGH-DOSE, TRIVALENT, PF 2024 CHAVO BOTELLO RIGHT DELTO ID [id number] 135 complet ed [facility]MIN[facility] N TDAP 2022 MAGY CORADO S LEFT DELTO ID [id number] 115 complet ed [facility] AT [facility] COVID-19 (PFIZER), MRNA, LNP-S, PF, IMANI-SUCROSE, 30 MCG/0.3 ML (AGES 12+ YEARS) 1 2022 ANDREA BARKLEY RIGHT DELTO ID [id number] 309 complet ed ADMIN[facility]E [facility] AT [facility] DIVISIO N INFLUENZA, HIGH-DOSE, QUADRIVALENT 2022 ANDREA BARKLEY LEFT DELTO ID [id number] 197 complet ed Completed Series, [facility] N COVID-19 (MODERNA), MRNA, LNP-S, PF, 100 MCG/0.5ML DOSE OR 50 MCG/0.25ML DOSE 2 2020 207 complet ed HISTORICA L INFORMATI ON - FROM OTHER REGISTRY, [facility] COVID-19 (MODERNA), MRNA, LNP-S, PF, 100 MCG/0.5ML DOSE OR 50 MCG/0.25ML DOSE 1 2020 207 complet ed HISTORICA L INFORMATI ON - FROM OTHER REGISTRY, [facility] DIVIS[facility] N INFLUENZA, HIGH-DOSE, QUADRIVALENT 1 2020 197 complet ed HISTORICA L INFORMATI ON - FROM OTHER REGISTRY, [facility] N Results Combined list of recent chemistry, hematology and other laboratory results from Department of Defense and Veterans Affairs, ranging from 15 months to all on record, depending upon the facility. Order Name Results Value Reference Range Date Interpretation Specimen Comments Source OCCULT BLOOD FIT X1 SCREEN HEMOGLOBIN .GASTROINT ESTINAL.LO WER [PRESENCE] IN STOOL BY IMMUNOASSA Y Negative 11/07 Specimen Type: FECES No comment entered. Ordering Provider: ANGELIC MIGUEL Report Released Date/Time: Oct 11, 2023 09:21 AM Reporting Lab: [facility] [address] [place] [phone] Performing Lab: [facility] [address] [place] [phone] [facility] COMPREHE NSIVE METABOLI C PANEL CREATININE [MASS/VOLU ME] IN SERUM OR PLASMA 1.19 mg/dL 0.70 - 1.30 09/04 Specimen Type: PLASMA Comment: No hemolysis noted. Ordering Provider: ANGELIC MIGUEL Report Released Date/Time: Sep 05, 2023 10:39 AM Reporting Lab: [facility] [phone] Performing Lab: [facility] [phone] [facility] COMPREHE NSIVE METABOLI C PANEL UREA NITROGEN [MASS/VOLU ME] IN SERUM OR PLASMA 17.1 mg/dL 9.0 - 25.0 09/04 Specimen Type: PLASMA Comment: No hemolysis noted. Ordering Provider: ANGELIC MIGUEL Report Released Date/Time: Sep 05, 2023 10:39 AM Reporting Lab: [facility] [place] [address] Performing Lab: [facility] DIVISION COMPREHE NSIVE METABOLI C PANEL GLUCOSE [MASS/VOLU ME] IN SERUM OR PLASMA 115 mg/dL 72 - 99 09/04 H Specimen Type: PLASMA Comment: No hemolysis noted. Ordering Provider: ANGELIC MIGUEL Report Released Date/Time: Sep 05, 2023 10:39 AM Reporting Lab: [facility] [place] [address] Performing Lab: [facility] DIVISION COMPREHE NSIVE METABOLI C PANEL SODIUM [MOLES/VOL UME] IN SERUM OR PLASMA 142 meq/L 136 - 145 09/04 Specimen Type: PLASMA Comment: No hemolysis noted. Ordering Provider: ANGELIC MIGUEL Report Released Date/Time: Sep 05, 2023 10:39 AM Reporting Lab: [facility] [place] [address] Performing Lab: [facility] DIVISION COMPREHE NSIVE METABOLI C PANEL POTASSIUM [MOLES/VOL UME] IN SERUM OR PLASMA 4.3 meq/L 3.5 - 5.0 09/04 Specimen Type: PLASMA Comment: No hemolysis noted. Ordering Provider: ANGELIC MIGUEL Report Released Date/Time: Sep 05, 2023 10:39 AM Reporting Lab: [facility] [place] [address] Performing Lab: [facility] DIVISION COMPREHE NSIVE METABOLI C PANEL CHLORIDE [MOLES/VOL UME] IN SERUM OR PLASMA 109 meq/L 98 - 107 09/04 H Specimen Type: PLASMA Comment: No hemolysis noted. Ordering Provider: ANGELIC MIGUEL Report Released Date/Time: Sep 05, 2023 10:39 AM Reporting Lab: [facility] [place] [address] Performing Lab: [facility] DIVISION COMPREHE NSIVE METABOLI C PANEL CARBON DIOXIDE, TOTAL [MOLES/VOL UME] IN SERUM OR PLASMA 22 meq/L 22 - 31 09/04 Specimen Type: PLASMA Comment: No hemolysis noted. Ordering Provider: ANGELIC MIGUEL Report Released Date/Time: Sep 05, 2023 10:39 AM Reporting Lab: [facility] [place] [address] Performing Lab: [facility] DIVISION COMPREHE NSIVE METABOLI C PANEL CALCIUM [MASS/VOLU ME] IN SERUM OR PLASMA 9.3 mg/dL 8.4 - 10.4 09/04 Specimen Type: PLASMA Comment: No hemolysis noted. Ordering Provider: ANGELIC MIGUEL Report Released Date/Time: Sep 05, 2023 10:39 AM Reporting Lab: [facility] [place] [address] Performing Lab: [facility] DIVISION COMPREHE NSIVE METABOLI C PANEL PROTEIN [MASS/VOLU ME] IN SERUM OR PLASMA 7.8 g/dL 6.0 - 8.6 09/04 Specimen Type: PLASMA Comment: No hemolysis noted. Ordering Provider: ANGELIC MIGUEL Report Released Date/Time: Sep 05, 2023 10:39 AM Reporting Lab: [facility] [place] [address] Performing Lab: [facility] DIVISION COMPREHE NSIVE METABOLI C PANEL ALBUMIN [MASS/VOLU ME] IN SERUM OR PLASMA 4.3 g/dL 3.4 - 5.0 09/04 Specimen Type: PLASMA Comment: No hemolysis noted. Ordering Provider: ANGELIC MIGUEL Report Released Date/Time: Sep 05, 2023 10:39 AM Reporting Lab: [facility] [place] [address] Performing Lab: [facility] DIVISION COMPREHE NSIVE METABOLI C PANEL BILIRUBIN. TOTAL [MASS/VOLU ME] IN SERUM OR PLASMA 0.5 mg/dL 0.2 - 1.2 09/04 Specimen Type: PLASMA Comment: No hemolysis noted. Ordering Provider: ANGELIC MIGUEL Report Released Date/Time: Sep 05, 2023 10:39 AM Reporting Lab: [facility] [place] [address] Performing Lab: [facility] DIVISION COMPREHE NSIVE METABOLI C PANEL ALKALINE PHOSPHATAS E [ENZYMATIC ACTIVITY/V OLUME] IN SERUM OR PLASMA 58 U/L 40 - 150 09/04 Specimen Type: PLASMA Comment: No hemolysis noted. Ordering Provider: ANGELIC MIGUEL Report Released Date/Time: Sep 05, 2023 10:39 AM Reporting Lab: [facility] [place] [address] Performing Lab: [facility] DIVISION COMPREHE NSIVE METABOLI C PANEL ASPARTATE AMINOTRANS FERASE [ENZYMATIC ACTIVITY/V OLUME] IN SERUM OR PLASMA 16 U/L 5 - 34 09/04 Specimen Type: PLASMA Comment: No hemolysis noted. Ordering Provider: ANGELIC MIGUEL Report Released Date/Time: Sep 05, 2023 10:39 AM Reporting Lab: [facility] [place] [address] Performing Lab: [facility] DIVISION COMPREHE NSIVE METABOLI C PANEL ALANINE AMINOTRANS FERASE [ENZYMATIC ACTIVITY/V OLUME] IN SERUM OR PLASMA 16 U/L 8 - 40 09/04 Specimen Type: PLASMA Comment: No hemolysis noted. Ordering Provider: ANGELIC MIGUEL Report Released Date/Time: Sep 05, 2023 10:39 AM Reporting Lab: [facility] [place] [address] Performing Lab: [facility] DIVISION COMPREHE NSIVE METABOLI C PANEL GLOMERULAR FILTRATION RATE/1.73 SQ M.PREDICTE D [VOLUME RATE/AREA] IN SERUM, PLASMA OR BLOOD BY CREATININE -BASED FORMULA (CKD-EPI 2020) 63.70 60 09/04 Specimen Type: PLASMA Comment: No hemolysis noted. Ordering Provider: ANGELIC MIGUEL Report Released Date/Time: Sep 05, 2023 10:39 AM Reporting Lab: [facility] [place] [address] Performing Lab: [facility] DIVISION CBC LEUKOCYTES [#/VOLUME] IN BLOOD BY AUTOMATED COUNT 6.5 10*3/uL 3.6 - 11.2 09/04 Specimen Type: BLOOD No comment entered. Ordering Provider: ANGELIC MIGUEL Report Released Date/Time: Sep 05, 2023 10:39 AM Reporting Lab: [facility] [place] [address] Performing Lab: [facility] CBC ERYTHROCYT ES [#/VOLUME] IN BLOOD BY AUTOMATED COUNT 5.26 10*6/uL 4.10 - 5.70 09/04 Specimen Type: BLOOD No comment entered. Ordering Provider: ANGELIC MIGUEL Report Released Date/Time: Sep 05, 2023 10:39 AM Reporting Lab: [facility] [place] [address] Performing Lab: [facility] CBC HEMOGLOBIN [MASS/VOLU ME] IN BLOOD 15.4 g/dL 13.1 - 16.8 09/04 Specimen Type: BLOOD No comment entered. Ordering Provider: ANGELIC MIGUEL Report Released Date/Time: Sep 05, 2023 10:39 AM Reporting Lab: [facility] [place] [address] Performing Lab: [facility] CBC HEMATOCRIT [VOLUME FRACTION] OF BLOOD 45.7 38.2 - 48.4 09/04 Specimen Type: BLOOD No comment entered. Ordering Provider: ANGELIC MIGUEL Report Released Date/Time: Sep 05, 2023 10:39 AM Reporting Lab: [facility] [place] [address] Performing Lab: [facility] CBC MCV [ENTITIC VOLUME] BY AUTOMATED COUNT 86.9 fL 80.0 - 100.0 09/04 Specimen Type: BLOOD No comment entered. Ordering Provider: ANGELIC MIGUEL Report Released Date/Time: Sep 05, 2023 10:39 AM Reporting Lab: [facility] [place] [phone] Performing Lab: [facility] DIVISION CBC MCH [ENTITIC MASS] BY AUTOMATED COUNT 29.3 pg 27.0 - 34.0 09/04 Specimen Type: BLOOD No comment entered. Ordering Provider: ANGELIC MIGUEL Report Released Date/Time: Sep 05, 2023 10:39 AM Reporting Lab: [facility] [place] [address] Performing Lab: [facility] DIVISION CBC MCHC [MASS/VOLU ME] BY AUTOMATED COUNT 33.7 g/dL 33.0 - 36.0 09/04 Specimen Type: BLOOD No comment entered. Ordering Provider: ANGELIC MIGUEL Report Released Date/Time: Sep 05, 2023 10:39 AM Reporting Lab: [facility] [place] [address] Performing Lab: [facility] DIVISION CBC PLATELETS [#/VOLUME] IN BLOOD BY AUTOMATED COUNT 204 10*3/uL 150 - 400 09/04 Specimen Type: BLOOD No comment entered. Ordering Provider: ANGELIC MIGUEL Report Released Date/Time: Sep 05, 2023 10:39 AM Reporting Lab: [facility] [place] [address] Performing Lab: [facility] DIVISION CBC PLATELET MEAN VOLUME [ENTITIC VOLUME] IN BLOOD BY AUTOMATED COUNT 9.7 fL 7.5 - 11.2 09/04 Specimen Type: BLOOD No comment entered. Ordering Provider: ANGELIC MIGUEL Report Released Date/Time: Sep 05, 2023 10:39 AM Reporting Lab: [facility] [place] [address] Performing Lab: [facility] DIVISION CBC ERYTHROCYT E DISTRIBUTI ON WIDTH [RATIO] BY AUTOMATED COUNT 13.0 11.8 - 15.1 09/04 Specimen Type: BLOOD No comment entered. Ordering Provider: ANGELIC MIGUEL Report Released Date/Time: Sep 05, 2023 10:39 AM Reporting Lab: [facility] [place] [address] Performing Lab: [facility] DIVISION CBC LYMPHOCYTE S/100 LEUKOCYTES IN BLOOD BY AUTOMATED COUNT 15 09/04 Specimen Type: BLOOD No comment entered. Ordering Provider: ANGELIC MIGUEL Report Released Date/Time: Sep 05, 2023 10:39 AM Reporting Lab: [facility] [place] [address] Performing Lab: [facility] DIVISION CBC MONOCYTES/ 100 LEUKOCYTES IN BLOOD BY AUTOMATED COUNT 9 09/04 Specimen Type: BLOOD No comment entered. Ordering Provider: ANGELIC MIGUEL Report Released Date/Time: Sep 05, 2023 10:39 AM Reporting Lab: [facility] [place] [address] Performing Lab: [facility] DIVISION CBC NEUTROPHIL S/100 LEUKOCYTES IN BLOOD BY AUTOMATED COUNT 74 09/04 Specimen Type: BLOOD No comment entered. Ordering Provider: ANGELIC MIGUEL Report Released Date/Time: Sep 05, 2023 10:39 AM Reporting Lab: [facility] [place] [phone] Performing Lab: [facility] [phone] [place] [address] DIVISION CBC EOSINOPHIL S/100 LEUKOCYTES IN BLOOD BY AUTOMATED COUNT 1 09/04 Specimen Type: BLOOD No comment entered. Ordering Provider: ANGELIC MIGUEL Report Released Date/Time: Sep 05, 2023 10:39 AM Reporting Lab: [facility] [place] [address] Performing Lab: [facility] [id number] DIVISION CBC BASOPHILS/ 100 LEUKOCYTES IN BLOOD BY AUTOMATED COUNT 1 09/04 Specimen Type: BLOOD No comment entered. Ordering Provider: ANGELIC MIGUEL Report Released Date/Time: Sep 05, 2023 10:39 AM Reporting Lab: [facility] [place] [address] Performing Lab: [facility] [id number] DIVISION CBC LYMPHOCYTE S [#/VOLUME] IN BLOOD BY AUTOMATED COUNT 0.99 10*3/uL 0.77 - 4.50 09/04 Specimen Type: BLOOD No comment entered. Ordering Provider: ANGELIC MIGUEL Report Released Date/Time: Sep 05, 2023 10:39 AM Reporting Lab: [facility] [place] [phone] Performing Lab: [facility] [place] [id number] DIVISION CBC MONOCYTES [#/VOLUME] IN BLOOD BY AUTOMATED COUNT 0.61 10*3/uL 0.19 - 0.80 09/04 Specimen Type: BLOOD No comment entered. Ordering Provider: ANGELIC MIGUEL Report Released Date/Time: Sep 05, 2023 10:39 AM Reporting Lab: [facility] [place] [address] Performing Lab: [facility] DIVISION CBC NEUTROPHIL S [#/VOLUME] IN BLOOD BY AUTOMATED COUNT 4.81 10*3/uL 2.10 - 8.00 09/04 Specimen Type: BLOOD No comment entered. Ordering Provider: ANGELIC MIGUEL Report Released Date/Time: Sep 05, 2023 10:39 AM Reporting Lab: [facility] [place] [address] Performing Lab: [facility] DIVISION CBC EOSINOPHIL S [#/VOLUME] IN BLOOD BY AUTOMATED COUNT 0.04 10*3/uL 0.00 - 0.60 09/04 Specimen Type: BLOOD No comment entered. Ordering Provider: ANGELIC MIGUEL Report Released Date/Time: Sep 05, 2023 10:39 AM Reporting Lab: [facility] [place] [address] Performing Lab: [facility] DIV[facility] CBC BASOPHILS [#/VOLUME] IN BLOOD BY AUTOMATED COUNT 0.03 10*3/uL 0.00 - 0.20 09/04 Specimen Type: BLOOD No comment entered. Ordering Provider: ANGELIC MIGUEL Report Released Date/Time: Sep 05, 2023 10:39 AM Reporting Lab: [facility] [place] [address] Performing Lab: [facility] DIVISION TSH W/ REFLEX FT4 (STL) THYROTROPI N [UNITS/VOL UME] IN SERUM OR PLASMA 2.085 u[IU]/mL 0.470 - 5.000 09/04 Specimen Type: PLASMA No comment entered. Ordering Provider: ANGELIC MIGUEL Report Released Date/Time: Sep 05, 2023 10:39 AM Reporting Lab: [facility] [address] Performing Lab: [facility] [phone] [address] VITAMIN B1 THIAMINE [MOLES/VOL UME] IN SERUM OR PLASMA 42 nmol/L 8 - 30 03/13 H Specimen Type: PLASMA Comment: Vitamin supplementa tion within 24 hours prior to blood draw may affect the accuracy of the results. This test was developed and its analytical performance characteris tics have been determined by [employer] [place], [place]. It has not been cleared or approved by the U.S. Food and Drug Administrat ion. This assay has been validated pursuant to the CLIA regulations and is used for clinical purposes. Test Performed by [facility], [employer] [facility], [id number] [place] [address] Marcus Doan M.D., Ph.D., Director of Laboratorie s , CLIA [id number] Ordering Provider: IGOR EUCEDA Report Released Date/Time: Mar 13, 2023 09:41 AM Reporting Lab: [facility] [address] [facility] [address] Performing Lab: [facility] [address] [facility] B12 COBALAMIN (VITAMIN B12) [MASS/VOLU ME] IN SERUM OR PLASMA 448 pg/mL 213 - 816 03/13 Specimen Type: SERUM Comment: The listed sex of this patient may not be a typical indication for this test. Therefore, reference ranges or interpretiv e criteria listed may not be valid. Clinical correlation suggested. Ordering Provider: IGOR EUCEDA Report Released Date/Time: Mar 13, 2023 09:41 AM Reporting Lab: [facility] [address] [facility] [address] Performing Lab: [facility] [address] [place] [phone] [facility] FREE T4 THYROXINE (T4) FREE [MASS/VOLU ME] IN SERUM OR PLASMA 1.01 ng/mL 0.7 - 1.48 03/13 Specimen Type: SERUM Comment: The listed sex of this patient may not be a typical indication for this test. Therefore, reference ranges or interpretiv e criteria listed may not be valid. Clinical correlation suggested. Ordering Provider: IGOR EUCEDA Report Released Date/Time: Mar 13, 2023 09:41 AM Reporting Lab: [facility] [address] [facility] [address] Performing Lab: [facility] [address] [place] [phone] [place] [address] VITAMIN D, 25-HYDRO XY 25-HYDROXY VITAMIN D3 [MASS/VOLU ME] IN SERUM OR PLASMA 29.6 ng/mL 30 - 96 03/13 L Specimen Type: SERUM Comment: The listed sex of this patient may not be a typical indication for this test. Therefore, reference ranges or interpretiv e criteria listed may not be valid. Clinical correlation suggested. Ordering Provider: IGOR EUCEDA Report Released Date/Time: Mar 13, 2023 09:41 AM Reporting Lab: [facility] [address] [facility] [address] Performing Lab: [facility] [address] [place] [phone] [facility] PROST. SPECIFIC AG.(PB-S TL) PROSTATE SPECIFIC AG [MASS/VOLU ME] IN SERUM OR PLASMA 0.102 ng/mL 0 - 4 03/13 Specimen Type: SERUM Comment: The listed sex of this patient may not be a typical indication for this test. Therefore, reference ranges or interpretiv e criteria listed may not be valid. Clinical correlation suggested. Ordering Provider: IGOR EUCEDA Report Released Date/Time: Mar 13, 2023 09:41 AM Reporting Lab: [facility] [address] [facility] [address] Performing Lab: [facility] [address] [facility] [address] [facility] COMPREHE NSIVE METABOLI C PANEL CREATININE [MASS/VOLU ME] IN SERUM OR PLASMA 1.09 mg/dL 0.7 - 1.3 03/13 Specimen Type: PLASMA Comment: LDL calculation invalid when Triglycerid e exceeds 250 mg/dl Ordering Provider: IGOR EUCEDA Report Released Date/Time: Mar 13, 2023 09:41 AM Reporting Lab: [facility] [address] [place] [phone] Performing Lab: [address] [address] [facility] COMPREHE NSIVE METABOLI C PANEL UREA NITROGEN [MASS/VOLU ME] IN SERUM OR PLASMA 15.2 mg/dL 9.0 - 25.0 03/13 Specimen Type: PLASMA Comment: LDL calculation invalid when Triglycerid e exceeds 250 mg/dl Ordering Provider: IGOR EUCEDA Report Released Date/Time: Mar 13, 2023 09:41 AM Reporting Lab: [facility] [address] [facility] [address] Performing Lab: [facility] [address] [place] [phone] [facility] COMPREHE NSIVE METABOLI C PANEL GLUCOSE [MASS/VOLU ME] IN SERUM OR PLASMA 112 mg/dL 72 - 99 03/13 H Specimen Type: PLASMA Comment: LDL calculation invalid when Triglycerid e exceeds 250 mg/dl Ordering Provider: IGOR EUCEDA Report Released Date/Time: Mar 13, 2023 09:41 AM Reporting Lab: [facility] [address] [facility] [address] Performing Lab: [facility] [address] [place] [phone] [facility] COMPREHE NSIVE METABOLI C PANEL SODIUM [MOLES/VOL UME] IN SERUM OR PLASMA 140 meq/L 136 - 145 03/13 Specimen Type: PLASMA Comment: LDL calculation invalid when Triglycerid e exceeds 250 mg/dl Ordering Provider: IGOR EUCEDA Report Released Date/Time: Mar 13, 2023 09:41 AM Reporting Lab: [facility] [address] [facility] [address] Performing Lab: [facility] [address] [facility] [address] [facility] COMPREHE NSIVE METABOLI C PANEL POTASSIUM [MOLES/VOL UME] IN SERUM OR PLASMA 4.1 meq/L 3.5 - 5 03/13 Specimen Type: PLASMA Comment: LDL calculation invalid when Triglycerid e exceeds 250 mg/dl Ordering Provider: IGOR EUCEDA Report Released Date/Time: Mar 13, 2023 09:41 AM Reporting Lab: [facility] [address] [facility] [address] Performing Lab: [facility] [address] [facility] [address] [facility] COMPREHE NSIVE METABOLI C PANEL CHLORIDE [MOLES/VOL UME] IN SERUM OR PLASMA 107 meq/L 98 - 107 03/13 Specimen Type: PLASMA Comment: LDL calculation invalid when Triglycerid e exceeds 250 mg/dl Ordering Provider: IGOR EUCEDA Report Released Date/Time: Mar 13, 2023 09:41 AM Reporting Lab: [facility] [address] [facility] [phone] Performing Lab: [facility] [address] [facility] [address] [facility] COMPREHE NSIVE METABOLI C PANEL CARBON DIOXIDE, TOTAL [MOLES/VOL UME] IN SERUM OR PLASMA 24 meq/L 22 - 31 03/13 Specimen Type: PLASMA Comment: LDL calculation invalid when Triglycerid e exceeds 250 mg/dl Ordering Provider: IGOR EUCEDA Report Released Date/Time: Mar 13, 2023 09:41 AM Reporting Lab: [facility] [address] [facility] [address] Performing Lab: [facility] [address] [facility] [address] [facility] COMPREHE NSIVE METABOLI C PANEL CALCIUM [MASS/VOLU ME] IN SERUM OR PLASMA 9.3 mg/dL 8.4 - 10.4 03/13 Specimen Type: PLASMA Comment: LDL calculation invalid when Triglycerid e exceeds 250 mg/dl Ordering Provider: IGOR EUCEDA Report Released Date/Time: Mar 13, 2023 09:41 AM Reporting Lab: [facility] [address] [facility] [phone] Performing Lab: [facility] [address] [place] [address] [phone] COMPREHE NSIVE METABOLI C PANEL PROTEIN [MASS/VOLU ME] IN SERUM OR PLASMA 7.6 g/dL 6 - 8.6 03/13 Specimen Type: PLASMA Comment: LDL calculation invalid when Triglycerid e exceeds 250 mg/dl Ordering Provider: IGOR EUCEDA Report Released Date/Time: Mar 13, 2023 09:41 AM Reporting Lab: [address] [phone] Performing Lab: [facility] [address] [facility] [address] [facility] COMPREHE NSIVE METABOLI C PANEL ALBUMIN [MASS/VOLU ME] IN SERUM OR PLASMA 4.4 g/dL 3.4 - 5 03/13 Specimen Type: PLASMA Comment: LDL calculation invalid when Triglycerid e exceeds 250 mg/dl Ordering Provider: IGOR EUCEDA Report Released Date/Time: Mar 13, 2023 09:41 AM Reporting Lab: [facility] [address] [place] [phone] Performing Lab: [facility] [address] [facility] [phone] [facility] COMPREHE NSIVE METABOLI C PANEL BILIRUBIN. TOTAL [MASS/VOLU ME] IN SERUM OR PLASMA 0.5 mg/dL 0.2 - 1.2 03/13 Specimen Type: PLASMA Comment: LDL calculation invalid when Triglycerid e exceeds 250 mg/dl Ordering Provider: IGOR EUCEDA Report Released Date/Time: Mar 13, 2023 09:41 AM Reporting Lab: [facility] [address] [facility] [address] Performing Lab: [facility] [address] [facility] [address] [facility] COMPREHE NSIVE METABOLI C PANEL ALKALINE PHOSPHATAS E [ENZYMATIC ACTIVITY/V OLUME] IN SERUM OR PLASMA 56 U/L 40 - 150 03/13 Specimen Type: PLASMA Comment: LDL calculation invalid when Triglycerid e exceeds 250 mg/dl Ordering Provider: IGOR EUCEDA Report Released Date/Time: Mar 13, 2023 09:41 AM Reporting Lab: [facility] [address] [place] [phone] Performing Lab: [address] [address] [facility] COMPREHE NSIVE METABOLI C PANEL ASPARTATE AMINOTRANS FERASE [ENZYMATIC ACTIVITY/V OLUME] IN SERUM OR PLASMA 17 U/L 5 - 34 03/13 Specimen Type: PLASMA Comment: LDL calculation invalid when Triglycerid e exceeds 250 mg/dl Ordering Provider: IGOR EUCEDA Report Released Date/Time: Mar 13, 2023 09:41 AM Reporting Lab: [address] [address] Performing Lab: [address] [address] [facility] COMPREHE NSIVE METABOLI C PANEL ALANINE AMINOTRANS FERASE [ENZYMATIC ACTIVITY/V OLUME] IN SERUM OR PLASMA 18 U/L 8 - 40 03/13 Specimen Type: PLASMA Comment: LDL calculation invalid when Triglycerid e exceeds 250 mg/dl Ordering Provider: IGOR EUCEDA Report Released Date/Time: Mar 13, 2023 09:41 AM Reporting Lab: [facility] [address] [place] [phone] Performing Lab: [address] [address] [facility] COMPREHE NSIVE METABOLI C PANEL GLOMERULAR FILTRATION RATE/1.73 SQ M.PREDICTE D [VOLUME RATE/AREA] IN SERUM, PLASMA OR BLOOD BY CREATININE -BASED FORMULA (CKD-EPI 2020) 71.2 60 03/13 Specimen Type: PLASMA Comment: LDL calculation invalid when Triglycerid e exceeds 250 mg/dl Ordering Provider: IGOR EUCEDA Report Released Date/Time: Mar 13, 2023 09:41 AM Reporting Lab: [facility] [address] [facility] [phone] Performing Lab: [facility] [address] [facility] [address] [facility] Vital Signs Combined list of inpatient and outpatient Vital Signs from Department of Defense and Veterans Affairs, ranging from 12 months to all on record, depending upon the facility. Vital Sign Value Date Comments Source SYSTOLIC BLOOD PRESSURE 139 04/14/2024 11:06:17 [facility] DIASTOLIC BLOOD PRESSURE 93 04/14/2024 11:06:17 [facility] PULSE OXIMETRY 94 04/14/2024 11:06:17 [facility] WEIGHT 217.7 04/14/2024 11:06:17 [facility] BMI 30 kg/m2 04/14/2024 11:06:17 [facility] PAIN 0 04/14/2024 11:06:17 [facility] HEIGHT 72 04/14/2024 11:06:17 [facility] TEMPERATURE 97.3 04/14/2024 11:06:17 [facility] PULSE 98 04/14/2024 11:06:17 [facility] RESPIRATION 16 04/14/2024 11:06:17 [facility] SYSTOLIC BLOOD PRESSURE 147 09/05/2023 09:28:58 [facility] DIASTOLIC BLOOD PRESSURE 80 09/05/2023 09:28:58 [facility] PULSE OXIMETRY 93 09/05/2023 09:28:58 [facility] WEIGHT 219.2 09/05/2023 09:28:58 [facility] BMI 30 kg/m2 09/05/2023 09:28:58 [facility] PAIN 0 09/05/2023 09:28:58 [facility] HEIGHT 72 09/05/2023 09:28:58 [facility] TEMPERATURE 97.7 09/05/2023 09:28:58 [facility] PULSE 103 09/05/2023 09:28:58 [facility] RESPIRATION 16 09/05/2023 09:28:58 [facility] Encounters Combined list of: 1) Encounters from Department of [facility] Affairs facilities going backup to the last 18 months, not all [place] inpatient encounters are included; 2) Encounters from the Department of [facility] facilities going backup to 280 months. Location Location Details Encounter Type Encounter Number Reason For Visit Attending Provider ADM Date DC Date Status Disposition Source [facility] Outpatient Encounter [id number] 02/13 [facility] [place] [id number] Diagnos is: ICD-10- CM Z23 Encount er for immuniz ation FILIPPO,VE RA 02/19 [facility] ADMN SARSCOV2 VACC 1 DOSE [id number] Diagnos is: ICD-10- CM Z23 Encount er for immuniz ation FILIPPO,VE RA 02/19 [facility] Outpatient Encounter [id number] AZUL KENYON I 02/19 [facility] HC PRO PHONE CALL 5-10 MIN [id number] Diagnos is: ICD-10- CM Z71.9 Director Of Vocational Guidance ing, unspeci fied NATHAN,FL ORINDA K 03/12 [facility] Outpatient Encounter [id number] 03/12 [facility] N [facility] Outpatient Encounter [id number] 03/13 [facility] OFF[facility] O/P NEW MOD 45-59 MIN [id number] Diagnos is: ICD-10- CM F02.B18 Dem in other dis classd elswhr, mod, with other beh disturb KRISTIAN EUCEDA RID 03/13 [facility] Outpatient Encounter [id number] 03/13 [facility] Outpatient Encounter [id number] 03/14 [facility] Outpatient Encounter [id number] 03/15 [facility] Outpatient Encounter [id number] TAMIKO CHACKO 03/21 [facility] Outpatient Encounter [id number] 03/21 [facility] Outpatient Encounter [id number] NORAH CEDILLO S 03/21 [facility] N [facility] Outpatient Encounter [id number] 03/27 [facility] N [facility] Outpatient Encounter [id number] DAISY BARAJAS 03/28 [facility] N [facility] Outpatient Encounter [id number] JESSICA BOTELLO S 03/28 [facility] Outpatient Encounter [id number] 04/08 [facility] OFFICE O/P NEW HI 60 MIN [id number] Diagnos is: ICD-10- CM F02.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, unsp sev, with oth beh distrb GURUSIDDAI YA,PRATIBH A N 04/09 [facility] OFF/OP CONSLTJ NEW/EST HI 55 [id number] Diagnos is: ICD-10- CM F03.90 Unsp dementi a, unsp severit y, without beh/psy ch/mood /anx ROYAL MIGUEL M 04/10 [facility] Outpatient Encounter [id number] 04/11 [facility] HC PRO PHONE CALL 21-30 MIN [id number] Diagnos is: ICD-10- CM F03.90 Unsp dementi a, unsp severit y, without beh/psy ch/mood /anx NORAH CEDILLO LLY S 04/11 [facility] N [facility] Outpatient Encounter [id number] 04/16 [facility] Outpatient Encounter [id number] Tarah CARRERA 04/26 [facility] Outpatient Encounter [id number] KATH CARL 05/08 [facility] Outpatient Encounter [id number] Diagnos is: ICD-10- CM F03.90 Unsp dementi a, unsp severit y, without beh/psy ch/mood /anx KRISTIAN EUCEDA RID 05/[address] [facility] OFFICE O/P EST MOD 30 MIN [id number] Diagnos is: ICD-10- CM F02.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, unsp sev, with oth beh distrb GURUSIDDAI YA,PRATIBH A N 05/21 [facility] Outpatient Encounter [id number] 06/09 [facility] Outpatient Encounter [id number] 06/15 [facility] Outpatient Encounter [id number] 06/18 [facility] Outpatient Encounter [id number] JESSICA BOTELLO 08/28 [facility] OFFICE O/P EST MOD 30 MIN [id number] Diagnos is: ICD-10- CM F02.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, unsp sev, with oth beh distrb GURUSIDDAI YA,PRATIBH A N 09/01 [facility] OFFICE O/P EST HI 40 MIN [id number] Diagnos is: ICD-10- CM F03.90 Unsp dementi a, unsp severit y, without beh/psy ch/mood /anx ROYAL MIGUEL M 09/04 [facility] Outpatient Encounter [id number] LINDSEY LOVING M 10/10 [facility] Outpatient Encounter [id number] 10/16 [facility] OFFICE O/P EST MOD 30 MIN [id number] Diagnos is: ICD-10- CM F03.90 Unsp dementi a, unsp severit y, without beh/psy ch/mood /anx GURUSIDDAI YA,PRATIBH A N 11/03 [facility] Outpatient Encounter [id number] JESSICA BOTELLO 11/12 [facility] OFFICE O/P EST MOD 30 MIN [id number] Diagnos is: ICD-10- CM F03.918 Unsp dementi a, unsp severit y, with other behavio ral disturb GURUSIDDAI YA,PRATIBH A N 01/19 [facility] Outpatient Encounter [id number] Tarah CARRERA 01/29 [facility] Outpatient Encounter [id number] JESSICA BOTELLO S 02/26 [facility] N [facility] Outpatient Encounter [id number] JESSICA BOTELLO S 03/20 [facility] Outpatient Encounter [id number] 03/30 [facility] Outpatient Encounter [id number] JESSICA BOTELLO S 04/06 [facility] OFFICE O/P EST MOD 30 MIN [id number] Diagnos is: ICD-10- CM F03.90 Unsp dementi a, unsp severit y, without beh/psy ch/mood /anx GURUSIDDENRIQUETA WALI PATEL A N 04/07 [facility] Outpatient Encounter [id number] 04/07 [facility] OFFICE O/P EST HI 40 MIN [id number] Diagnos is: ICD-10- CM F03.90 Unsp dementi a, unsp severit y, without beh/psy ch/mood /anx ROYAL MIGUEL 04/14 [facility] Outpatient Encounter [id number] 04/30 [facility] Outpatient Encounter [id number] 05/01 [facility] Outpatient Encounter [id number] PEREZ FRANK M 05/04 [facility] Outpatient Encounter [id number] 05/13 [facility] Outpatient Encounter [id number] 05/21 [facility] Outpatient Encounter [id number] LINDSEY LOVING 05/26 [facility] OFFICE O/P EST LOW 20 MIN [id number] Diagnos is: ICD-10- CM D48.5 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 Social History Type Response Date Comment Sourc e Tobacco smoking status [facility]-TOBACCO NEVER USED CIGARETTES 04/14/2024 [facility] History of tobacco use MA-TOBACCO NEVER USED OTHER TYPE 04/14/2024 [facility] History of tobacco use MA-TOBACCO FORMER USER 03/13/2023 [facility] This section is an empty social history section. [facility] Plan of Care List of future care activities from Department [facility] facilities. Additional future care activities may be listed in the Assessment and Plan section. Date/Time Care Activity Care Activity Detail Facili ty 10/13/2024 AMBULATORY - REHAB MEDICINE AMBULATORY - REHAB MEDICINE [facility] Advance Directives List of completed, amended, or rescinded Advance Directives on record at [facility] facilities. An actual copy of the Directive is not included. Date Advance Directive Provider Source 03/15/2023 ADVANCE DIRECTIVE BINU SWANSON [facility]
--- OUTSIDE RECORDS SUMMARY | 2024-08-04 10:18 | XMS_ITS | Encounter Summary ---
Author Name [facility] [place] [facility] [place] [facility] [place] Address [address] [place] [address] Care Team Providers Care Director [place] Name Role Phone DAMASO CARRANZA Primary Care Provider Unavailabl e Insurance Providers: [...] PART A Feb 22, 2014 PART A [id number] LUKAS HAYS PATIENT Selected Encounter This section includes the information on record at [place] for the Encounter. Date/Time Encounter Type Encounter Description Reason Provider Source Apr 14, 2024 11:00 AM OFFICE O/P EST HI 40 MIN GERIPACT ICD-10-CM F03.90 Unsp dementia, unsp severity, without beh/psych/mood /anx GILDARDO MIGUEL Melly Encounter Template Text not used by [place] Assessments - Encounter Diagnoses This section includes the primary and secondary diagnoses documented for the Encounter. Date/Time Primary/Secondary Diagnosis Diagnosis Name Provider Source Apr 14, 2024 01:21 PM PRIMARY Unsp dementia, unsp severity, without beh/psych/mood/anx GILDARDO MIGUEL [facility] Apr 14, 2024 01:21 PM SECONDARY Encounter for immunization AIMEE BOTELLO [facility] Apr 14, 2024 01:21 PM SECONDARY Essential (primary) hypertension GILDARDO MIGUEL [facility] Plan of Treatment: Future Appointments (+ 6 months) and Future Tests (+/- 45 days) The Plan of Treatment section includes future care activities for the patient from all [place] [facility] This section includes future appointments and future orders which are active, pending or scheduled. Future Appointments This section includes appointments that were scheduled to occur 6 months from the date of the Encounter, up to a maximum of 20 appointments. The data comes from all [facility]. Appointment Date/Time Appointment Type Appointme nt Facility Name Jun 15, 2024 08:00 AM AMBULATORY - NONE [facility] Jun 17, 2024 03:30 PM AMBULATORY - MEDICINE [facility] Jul 06, 2024 09:00 AM AMBULATORY - NONE [facility] July 24, 2024 10:00 AM AMBULATORY - MEDICINE [facility] Active, Pending, and Scheduled Orders This section includes a listing of several types of active, pending, and scheduled orders, including clinic medications orders, diagnostic test orders, procedure orders and consult orders; where the start date of the order is 45 days before the date of the Encounter or 45 days after the date of theEncounter. The data comes from all [facility]. Test Date/Time Test Type Test Details Facility Name May 26, 2024 10:19 AM Consult Order [facility]/HOME HEALTH AIDE [facility] Cons Cake Stripper's Choice [facility] Vital Signs: All taken on the encounter date This section contains inpatient and outpatient Vital Signs collected on the date of the Encounter. Date/Time Temperature Pulse Blood Pressure Respiratory Rate SP02 Pain Height Weight Body Mass Index Source Apr 14, 2024 11:06 AM 126/88 [facility] Apr 14, 2024 11:06 AM 97.3 98 139/93 16 94 0 72 217.7 30 [facility] Immunizations: All administered on the encounter date This section contains immunizations associated to the Encounter. Immunization Series Date Issued Administered By Site Reaction Lot Number [id number] Drug Nurse Sitter Comment(s) Source COVID-19 (PFIZER), MRNA, LNP-S, PF, IMANI-SUCROSE, 30 MCG/0.3 ML (AGES 12+ YEARS) Apr 14, 2024 CHAVO BOTELLO LEFT DELTO ID [id number] PFI[employer], INC ADMINISTERE D AT [facility] INFLUENZA, HIGH-DOSE, TRIVALENT, PF Apr 14, 2024 CHAVO BOTELLO RIGHT DELTO ID [id number] SANOFI PASTEUR ADMINISTERE D AT [facility] Social History: Smoking Status (Most current) and Tobacco Use (All prior to encounter date) This section includes the most current, and the historical, smoking and tobacco- related health factors from the [place] facility where the Encounter took place. Current Smoking Status This section includes the most current smoking, or tobacco-related health factor, from the [place] facility where the Encounter took place. Date/Time Current Smoking Status Comment Miya dee Apr 14, 2024 11:00 AM [place]-TOBACCO NEVER U SED CIGARETTES [facility] Tobacco Use History This section includes a history of the smoking, or tobacco-related health factors, that were collected on or before the date of the Encounter. The data comes from the [place] facility where the Encounter took place. Date/Time Smoking Status/Tobacco Use Comment Wesley sarah Apr 14, 2024 11:00 AM [place]-TOBACCO NEVER U SED OTHER TYPE [facility] Advance Directives: All historical and current Section Date Range: From patient's date of to the date document was created. This section includes ALL of a patient's completed or amended [place] Advance and Rescinded Directives. The entries below indicate that a directive exists for the patient, but an actual copy is not included with this document. The data comes from all [place] facilities. Date Advance Directives Provider Source Mar 15, 2023 ADVANCE DIRECTIVE [facility] [place] [facility] Encounter Notes: All associated encounter notes This section contains the clinical notes associated to the Encounter. Date/Time Encounter Note(s) Provider Source Apr 14, 2024 12:32 PM GERIATRIC MEDICINE NOTE: LOCAL TITLE: GERIATRIC PACT CLINIC [facility] STANDARD TITLE: GERIATRIC MEDICINE NOTE DATE OF NOTE: APR 14, 2024@12:32 ENTRY DATE: APR 14, 2024@12:32:54 AUTHOR: FAYE FRANKLIN EXP COSIGNER: GILDARDO MIGUEL URGENCY: STATUS: COMPLETED GERIATRIC PACT CLINIC [facility] Has ADDENDA Type of Evaluation: Geriatric Follow-up Date of Visit: 04/14/24 11:00 Patient's SSN:[id number] LUKAS HAYS is a 73 year old WHITE MALE. : Apr CC: routine follow up HPI: Mr. Moy is a 73 y/o M w/ PMHx of dementia, HLD, and a hx of prostate cancer who presents to clinic wiht his for routine follow up. Patient's states that last week they had appointment with psychiatry and was told to not allow patient to watch tv anymore, but especially at night to try and help his sleep pattern. states instead of helping with sleep, this change has caused patient not to sleep at all. He is awake all night long and anxious. states she is worried patient may be getting depressed. This past week his appetite is decreased and he has not been as engaging with her or the home health worker. states patient refuses to wear knee brace that was recommended by ortho or use his walker. He follows up with ortho q3mo for knee injections and towards the end of the three months, his knee gives out on him more and more frequently causing the patient to stumble and fall. states patient will also hide his knee brace from her and then not remeber where he hid it. Patient states that for the first time yesterday he did not recognize her. Adherence to Medications & Managed by: GERIATRIC REVIEW OF SYSTEMS: Change in weight: stable Appetite: okay Dysphagia (specify with or without CVA): no Dentition: no change Sleep: bad this past week. see above Vision: okay Hearing: stable Wounds/Ulcers: no Peripheral neuropathy (specify with or without DM): no Constipation: no Incontinence: no Nocturia: no Fear of falling: fears falls Assistive devices: supposed to be using walker. patient refuses Recent Hospitalizations: no Recent ER Visits: no Complete ROS: Constitutional: Eyes: ENMT: CV: Resp: GI: : Musculoskeletal: Skin: Neuro: Psych: Falls The has fallen more than once in the last 12 months. Comment: patient's knee gives out on him and he refuses to use the brace The fall did not cause an injury. PMH: 1) Exposure to potentially hazardous substance 2) Dementia ([facility] [id number]) OUTPATIENT MEDICATION RECONCILIATION: Review of the essential medication list for review at the time of this encounter included: Remote and local facility patient allergies, and active and pending prescriptions dispensed from this [place] (local) and dispensed from another [place] or [facility] facility (remote) as well as local inpatient and clinic medication, locally documented non-VA medications and local prescriptions that have or been discontinued in the past 90 days. With the exception of Allergies, if a category is not listed below, it means there were no relevant medications for the patient. The medication list was reviewed with the patient/caregiver: Yes Active Outpatient Medications (including Supplies): Active Outpatient Medications Status 1) ARIPIPRAZOLE 5MG TAB TAKE ONE TABLET BY MOUTH ONCE A DAY ACTIVE Indication: MOOD STABLIZER 2) ATORVASTATIN CALCIUM 40MG TAB TAKE ONE-HALF TABLET BY MOUTH ACTIVE EVERY EVENING Indication: FOR HIGH CHOLESTEROL 3) CHOLECALCIF 50MCG (D3-2,000UNIT) TAB TAKE ONE TABLET BY ACTIVE MOUTH ONCE A DAY Indication: FOR VITAMIN D DEFICIENCY 4) DIVALPROEX NA 125MG SPRINKLE CAP TAKE ONE CAPSULE CONTENT ACTIVE OVER FOOD BY MOUTH AT BEDTIME AND TAKE ONE CAPSULE EVERY MORNING NEEDED Indication: AGITATION 5) DONEPEZIL HCL 10MG TAB TAKE ONE TABLET BY MOUTH AT BEDTIME ACTIVE (JUST BEFORE BEDTIME) Indication: FOR ALZHEIMER DISEASE 6) ESCITALOPRAM OXALATE 20MG TAB TAKE ONE-HALF TABLET BY MOUTH ACTIVE ONCE A DAY Indication: FOR DEPRESSION 7) MEMANTINE HCL 10MG TAB TAKE ONE TABLET BY MOUTH EVERY ACTIVE (S) MORNING AND EVENING Indication: FOR ALZHEIMER DISEASE 8) MULTIVITAMIN CAP/TAB TAKE 1 TABLET BY MOUTH ONCE A DAY ACTIVE Indication: FOR NUTRITION/DIETARY SUPPLEMENTATION Medication List was provided to the patient/caregiver at the end of the visit. ALLERGIES/ADR: Patient has answered NKA VITALS: BP: 126/88 (04/14/2024 11:06) Pulse: 98 (04/14/2024 11:06) Temp: 97.3 F [36.3 C] (04/14/2024 11:06) RR: 16 (04/14/2024 11:06) Pain: 0 (04/14/2024 11:06) Weight: Measurement DT WEIGHT LB(KG)[BMI] 04/14/2024 11:06 217.7(98.75)[30*] 09/05/2023 09:28 219.2(99.43)[30*] Height: 72 in [182.9 cm] (04/14/2024 11:06) PE: General: well appearing HEENT: SHASHA CV: RRR Pulm: CTAB Ext: no peripheral edema, sebacious cyst on R shoulder blade Neuro: oiented to himself and his , not oriented to time. Attempts to answer questions but sentences are sometimes nonsensible. Gait: unsteady LABS: CMP: CREATININE 1.19 mg/dL 09/05/2023 11:25 GLUCOSE 115 H mg/dL 09/05/2023 11:25 SODIUM 142 mEq/L 09/05/2023 11:25 POTASSIUM 4.3 mEq/L 09/05/2023 11:25 CHLORIDE 109 mEq/L H (09/05/23 11:25) CARBON DIOXIDE 22 mEq/L 09/05/2023 11:25 CALCIUM 9.3 mg/dL (09/05/23 11:25) PROTEIN 7.8 g/dL 09/05/2023 11:25 ALBUMIN 4.3 g/dL 09/05/2023 11:25 TOTAL BILIRUBIN 0.5 mg/dL 09/05/2023 11:25 ALKALINE PHOSPHATASE 58 U/L 09/05/2023 11:25 AST/SGOT 16 U/L 09/05/2023 11:25 ALT/SGPT 16 U/L 09/05/2023 11:25 CBC: WBC 6.5 10*3/uL (09/05/23 11:25) RBC 5.26 10*6/uL (09/05/23 11:25) HCT 45.7 % (09/05/23 11:25) MCV 86.9 fL (09/05/23 11:25) HGB 15.4 g/dL 09/05/2023 11:25 HGB A1C Collection DT Specimen Test Name Result Units Ref Range 03/13/2023 10:15 BLOOD HGA1C 5.6 % 4.0 - 6.0 PLT 204 10*3/uL 09/05/2023 11:25 PSA: PROST. SPECIFIC AG.(PB-STL) 0.102 ng/mL 03/13/2023 10:15 CHOLESTEROL 212 H mg/dL 03/13/2023 10:15 HDL: 35 mg/dL L (03/13/23 10:15) LDL: DIRECT LDL 148 mg/dL 03/13/2023 10:15 CALCULATED LDL comment mg/dL 03/13/2023 10:15 Trigs: 273 mg/dL H (03/13/23 10:15) No MICRAL data found VITAMIN D, 25-HYDROXY 29.6 L ng/mL 03/13/2023 10:15 B12 448 pg/mL 03/13/2023 10:15 No FOLATE (STL-MA);FOLATE (PB);FOLATE (DC 12-30);FOLATE (DC 12/30) data found TSH 2.085 uIU/mL 09/05/2023 11:25 CHEST X-RAY: No Impressions found ASSESSMENT AND PLAN: Lukas Hays is a 73 y/o male with PMH of dementia, HLD, and hx of prostate cancer who presents today for routine follow up. #Sebacious Cyst - derm consult placed for removal -counseled if it becomes infected prior to removal to present to ED or urgent care #Dementia - hx of poor memory for past ~10yr with worsening memory and behavioral issues more recently in past 2-3yrs - follows with psychiatry to manage medications, frequent video visits - continue divalproex 125mg qhs, escitalopram 10mg daily, aripiprazole 5mg - continue memantine 10mg daily, donepezil 10mg daily -encouraged to return to prior routine (using tv at night, etc) to help patient get more sleep for next 7-10 days. After sleep has been better can try and make changes and tweak noise/tv/habbits to try and improve sleep -encouraged to wait until 7-10 days of better sleep and see if mood improves. If mood does not improve after sleep is better to call psych earlier than scheduled appointment to share concenrs. #HLD - uncontrolled - last lipid panel (02/2023): cholesterol 212, triglyceride 273, HLD 35, LDL 148 - patient has not been taking atorvastatin, advised patient's to start - start atorvastatin 20mg daily #hx of prostate cancer - PSA 02/2023: 0.102 Age Friendly 4M's WHAT MATTERS What Matters was addressed at this visit. MEDICATION Medications were addressed at this visit. MENTATION Depression was addressed at this visit. MENTATION Dementia was addressed at this visit. MENTATION Delirium was addressed at this visit. MOBILITY -------- Mobility was addressed at this visit. PREVENTION & HEALTH MAINTENANCE: flu and COVID shot given today Life Sustaining Treatment Orders RTC: 6 months /vandana/ FAYE FRANKLIN M4 Signed: 04/14/2024 12:49 /vandana/ GILDARDO MIGUEL MD STAFF PHYSICIAN ECRS Cosigned: 04/14/2024 13:21 04/14/2024 ADDENDUM STATUS: COMPLETED Type of Evaluation: Geriatric Follow-up Date of Visit: 04/14/24 11:00 Patient's SSN:[id number] LUKAS HAYS is a 73 year old WHITE MALE. : Apr CC: pt returns with for routine clinic visit HPI: major issue for pt is saw psych last week and pt's says she was told to make a series of behavioral changes to improve sleep, but that none of these have worked and the pt and the caregiver have not slept since then. Other stokes she has no c/o except that maybe pt is more depressed now than two weeks agounclear whether or not was giving atorvastatin Adherence to Medications & Managed by: good- except as noted- GERIATRIC REVIEW OF SYSTEMS: Change in weight: Appetite: ok Dysphagia (specify with or without CVA): Dentition: Sleep: as above Vision: ok Hearing: ok Wounds/Ulcers: Peripheral neuropathy (specify with or without DM): Constipation: Incontinence: Nocturia: Fear of falling: no Assistive devices: not using walker or knee brace Recent Hospitalizations: no Recent ER Visits: no Complete ROS: Constitutional: Eyes: ENMT: CV: Resp: GI: : Musculoskeletal: Skin: Neuro: Psych: Pain The [place] does not have pain that interferes with their quality of life. PMH: 1) Exposure to potentially hazardous substance 2) Dementia ([facility] [id number]) OUTPATIENT MEDICATION RECONCILIATION: Review of the essential medication list for review at the time of this encounter included: Remote and local facility patient allergies, and active and pending prescriptions dispensed from this [place] (local) and dispensed from another [place] or [facility] facility (remote) as well as local inpatient and clinic medication, locally documented non-VA medications and local prescriptions that have or been discontinued in the past 90 days. With the exception of Allergies, if a category is not listed below, it means there were no relevant medications for the patient. The medication list was reviewed with the patient/caregiver: Yes Active Outpatient Medications (including Supplies): Active Outpatient Medications Status = 1) ARIPIPRAZOLE 5MG TAB TAKE ONE TABLET BY MOUTH ONCE A DAY ACTIVE Indication: MOOD STABLIZER 2) ATORVASTATIN CALCIUM 40MG TAB TAKE ONE-HALF TABLET BY MOUTH ACTIVE EVERY EVENING Indication: FOR HIGH CHOLESTEROL 3) CHOLECALCIF 50MCG (D3-2,000UNIT) TAB TAKE ONE TABLET BY ACTIVE MOUTH ONCE A DAY Indication: FOR VITAMIN D DEFICIENCY 4) DIVALPROEX NA 125MG SPRINKLE CAP TAKE ONE CAPSULE CONTENT ACTIVE OVER FOOD BY MOUTH AT BEDTIME AND TAKE ONE CAPSULE EVERY MORNING NEEDED Indication: AGITATION 5) DONEPEZIL HCL 10MG TAB TAKE ONE TABLET BY MOUTH AT BEDTIME ACTIVE (JUST BEFORE BEDTIME) Indication: FOR ALZHEIMER DISEASE 6) ESCITALOPRAM OXALATE 20MG TAB TAKE ONE-HALF TABLET BY MOUTH ACTIVE ONCE A DAY Indication: FOR DEPRESSION 7) MEMANTINE HCL 10MG TAB TAKE ONE TABLET BY MOUTH EVERY ACTIVE (S) MORNING AND EVENING Indication: FOR ALZHEIMER DISEASE 8) MULTIVITAMIN CAP/TAB TAKE 1 TABLET BY MOUTH ONCE A DAY ACTIVE Indication: FOR NUTRITION/DIETARY SUPPLEMENTATION Medication List was provided to the patient/caregiver at the end of the visit. ALLERGIES/ADR: Patient has answered NKA VITALS: BP: 126/88 (04/14/2024 11:06) Pulse: 98 (04/14/2024 11:06) Temp: 97.3 F [36.3 C] (04/14/2024 11:06) RR: 16 (04/14/2024 11:06) Pain: 0 (04/14/2024 11:06) Weight: Measurement DT WEIGHT LB(KG)[BMI] 04/14/2024 11:06 217.7(98.75)[30*] 09/05/2023 09:28 219.2(99.43)[30*] Height: 72 in [182.9 cm] (04/14/2024 11:06) PE: General: in nad, well groomed HEENT: nc/at, perrla, eomi CV: reg rate and rythm Pulm: clear to p and a Ext: no c,c or e Neuro: alert, oriented x1, cranial nerves 2-12 grossly intact Gait: LABS: CMP: CREATININE 1.19 mg/dL 09/05/2023 11:25 GLUCOSE 115 H mg/dL 09/05/2023 11:25 SODIUM 142 mEq/L 09/05/2023 11:25 POTASSIUM 4.3 mEq/L 09/05/2023 11:25 CHLORIDE 109 mEq/L H (09/05/23 11:25) CARBON DIOXIDE 22 mEq/L 09/05/2023 11:25 CALCIUM 9.3 mg/dL (09/05/23 11:25) PROTEIN 7.8 g/dL 09/05/2023 11:25 ALBUMIN 4.3 g/dL 09/05/2023 11:25 TOTAL BILIRUBIN 0.5 mg/dL 09/05/2023 11:25 ALKALINE PHOSPHATASE 58 U/L 09/05/2023 11:25 AST/SGOT 16 U/L 09/05/2023 11:25 ALT/SGPT 16 U/L 09/05/2023 11:25 CBC: WBC 6.5 10*3/uL (09/05/23 11:25) RBC 5.26 10*6/uL (09/05/23 11:25) HCT 45.7 % (09/05/23 11:25) MCV 86.9 fL (09/05/23 11:25) HGB 15.4 g/dL 09/05/2023 11:25 HGB A1C Collection DT Specimen Test Name Result Units Ref Range 03/13/2023 10:15 BLOOD HGA1C 5.6 % 4.0 - 6.0 PLT 204 10*3/uL 09/05/2023 11:25 PSA: PROST. SPECIFIC AG.(PB-STL) 0.102 ng/mL 03/13/2023 10:15 CHOLESTEROL 212 H mg/dL 03/13/2023 10:15 HDL: 35 mg/dL L (03/13/23 10:15) LDL: DIRECT LDL 148 mg/dL 03/13/2023 10:15 CALCULATED LDL comment mg/dL 03/13/2023 10:15 Trigs: 273 mg/dL H (03/13/23 10:15) No MICRAL data found VITAMIN D, 25-HYDROXY 29.6 L ng/mL 03/13/2023 10:15 B12 448 pg/mL 03/13/2023 10:15 No FOLATE (STL-MA);FOLATE (PB);FOLATE (DC 12-30);FOLATE (DC 12/30) data found TSH 2.085 uIU/mL 09/05/2023 11:25 CHEST X-RAY: No Impressions found ASSESSMENT AND PLAN: 1. dementia- stable with slow deterioration- advised to go back to previous routine to see if previous sleep patern can be restored. In addition if pt remains more depressed needs to call psych for follow up 2. hbp- on no meds with acceptable systolic in clinic today 3. hld- renew atorvastatin PREVENTION & HEALTH MAINTENANCE: Life Sustaining Treatment Orders RTC: /vandana/ GILDARDO MIGUEL MD STAFF PHYSICIAN ECRS Signed: 04/14/2024 13:28 [facility] Apr 14, 2024 11:19 AM NURSING NOTE: LOCAL TITLE: V15 PACT FACE TO FACE NOTE [facility] STANDARD TITLE: NURSING NOTE DATE OF NOTE: APR 14, 2024@11:19 ENTRY DATE: APR 14, 2024@11:19:28 AUTHOR: AIMEE BOTELLO COSIGNER: URGENCY: STATUS: COMPLETED V15 PACT FACE TO FACE NOTE [facility] Has ADDENDA Provider Visit: Patient Identifiers : Full Name Date of Reason for visit: Established Follow-Up Doctor Gildardo Miguel Mode of Arrival: Ambulatory Allergy Review: Patient has answered NKA Allergy list reviewed and remains current. Recent Vital Signs: Temperature: 97.3 F [36.3 C] (04/14/2024 11:06) Pulse: 98 (04/14/2024 11:06) Respiration: 16 (04/14/2024 11:06) B/P: 126/88 (04/14/2024 11:06) Pain: 0 (04/14/2024 11:06) Wt: 217.7 lb [98.75 kg] (04/14/2024 11:06) Ht: 72 in [182.9 cm] (04/14/2024 11:06) BMI: 29.6 POX: 94% (04/14/2024 11:06) Blood sugar glucometer reading: Not applic Would you like to discuss any personal problem, family problem, alcohol use, drug use, or a mental or emotional illness? No Contact provided Primary Care phone number and encouraged to call if any questions or concerns. Review that after hours nurse line [phone] and emergency room are available 15/10 for patient use. Contact verbalized good understanding. Herpes Zoster (Shingles) Vaccine - L,N,P,PH,U: The patient declines to receive the recommended dose of zoster (shingles) vaccine. Immunization: ZOSTER RECOMBINANT Refusal Reason: PATIENT DECISION Patient refuses all immunization(s) in the ZOSTER group Date Documented: 04/14/24 11:22 Learning Assessment: - * This patient's patient's learning ABILITIES, BARRIERS to learning, CULTURAL and EVANGELICAL beliefs, and learning PREFERENCES were assessed. Following are findings of note: Patient cannot read. Extra time must be taken to assure he understands medication schedules, appts, etc. Patient has the following hearing/auditory barrier(s) to consider when teaching: No hearing barrier identified. Patient has the following speech barrier to consider when teaching: No speech barrier identified. LANGUAGE Patient reports that Malawian is preferred language for healthcare. Patient has the following language barrier to consider when teaching: No language barrier has been identified. Patient has the following vision barrier(s) to consider when teaching: No vision barrier has been identified. Patient has the following dexterity/mobility barrier(s) to consider when teaching: No dexterity/mobility barrier has been identified. Patient has the following cognitive/memory barrier(s) to consider when teaching: The following barrier(s) has been identified. Patient has the following emotional/psychological barrier(s) to consider when teaching: No emotional/psychosocial barrier has been identified. Patient reports learning preference is attending one-to-one or group demonstrations. Pneumococcal Conjugate Vaccine (PCV15/PCV20) - L,N,P,PH,U: Refuses PCV vaccine Immunization: PNEUMOCOCCAL CONJUGATE, UNSPECIFIED FORMULATION Refusal Reason: PATIENT DECISION Patient refuses all immunization(s) in the PneumoPCV group Date Documented: 04/14/24 11:24 Tobacco Use Screening - AT,DE,L,M,N,P,PH,PS,RT,S,U: The patient has never smoked cigarettes. The patient has never used other types of tobacco. [facility] MAP: PERSONAL HEALTH PLAN INVENTORY & MAP [place]'s Response: Interacting with other people. /es/ AIMEE BOTELLO JR, LPN LICENSED PRACTICAL NURSE Signed: 04/14/2024 11:26 04/14/2024 ADDENDUM STATUS: COMPLETED COVID-19 Immunization - L,N,P,PH,U: Pfizer Monovalent (Comirnaty) Administered: COVID-19 (PFIZER), MRNA, LNP-S, PF, IMANI-SUCROSE, 30 MCG/0.3 ML (AGES 12+ YEARS) Date Administered: Apr 14, 2024 11:00 Nurse Sitter: [employer] Lot: [id number] Exp Date: Jun 29, 2024 ND: [id number] Admin Route/Site: INTRAMUSCULAR/LEFT DELTOID Dosage: 0.3mL Vaccine Information Statement(s): COVID-19 MRNA VACCINE (12+ YRS) VIS Jan 09, 2024 (NAMIBIAN) Order By: Policy Administered By: Aimee Botello Vaccine administered without complications. Influenza Immunization - L,N,P,PH,U: Influenza, High-Dose, Trivalent, Preservative Free (Fluzone-Syringe) Administered: INFLUENZA, HIGH-DOSE, TRIVALENT, PF Date Administered: Apr 14, 2024 11:00 Nurse Sitter: SANOFI PASTEUR Lot: [id number] Exp Date: Sep 21, 2024 ND: [id number] Admin Route/Site: INTRAMUSCULAR/RIGHT DELTOID Dosage: 0.5mL Vaccine Information Statement(s): INFLUENZA(FLU) VACC(INACTIVATED OR RECOMBINANT)VIS Oct 28, 2020 (NAMIBIAN) Order By: Policy Administered By: Aimee Botello The Influenza Vaccine Information Statement (VIS) was reviewed with the patient/caregiver which lists the benefits and risks of the vaccine and the risks of not receiving the Influenza vaccine. The patient/caregiver denied any prior severe reaction to this vaccine or its components or a severe allergic reaction, such as anaphylaxis, to any vaccine or any injectable therapy. The patient/caregiver gave verbal consent to receive the vaccine. /vandana/ AIMEE BOTELLO JR, LPN LICENSED PRACTICAL NURSE Signed: 04/14/2024 11:48 AIMEE BOTELLO [facility]
--- OUTSIDE RECORDS SUMMARY | 2024-08-04 10:18 | XMS_ITS | Encounter Summary ---
Author Name [facility] [place] [facility] [place] [facility] [place] Address [address] [facility], [place] [address] Care Team Providers Care Road Repairer Name Role Phone DAMASO CARRANZA Primary Care [...] PART A Feb 22, 2014 PART A [id number] [phone] LUKAS TREVINO PATIENT Selected Encounter This section includes the information on record at [place] for the Encounter. Date/Time Encounter Type Encounter Description Reason Pro vider Source Sep 02, 2023 01:00 PM OFFICE O/P EST MOD 30 MIN PSYCHOGERIATRIC - INDIVIDUAL ICD-10-CM F02.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, unsp sev, with oth beh distrb YOLANDA,P RATIBHA N IHE Encounter Template Text not used by [place] Assessments - Encounter Diagnoses This section includes the primary and secondary diagnoses documented for the Encounter. Date/Time Primary/Secondary Diagnosis Diagnosis Name Provider Source Sep 02, 2023 01:35 PM PRIMARY Dem in oth dis classd elswhr, unsp sev, with ot beh distrb YOLANDA,WI ATIBHA N [facility] Plan of Treatment: Future Appointments (+ 6 months) and Future Tests (+/- 45 days) The Plan of Treatment section includes future care activities for the [facility] [place] [facility] This section includes future appointments and future orders which are active, pending or scheduled. Future Appointments This section includes appointments that were scheduled to occur 6 months from the date of the Encounter, up to a maximum of 20 appointments. The data comes from all [place] treatment facilities. Appointment Date/Time Appointment Type Appointme nt Facility Name Sep 05, 2023 09:30 AM AMBULATORY - REHAB MEDICIN E [facility] Sep 28, 2023 11:00 AM AMBULATORY - NONE [facility] Nov 04, 2023 01:00 PM AMBULATORY - NONE [facility] Jan 20, 2024 08:30 AM AMBULATORY - NONE [facility] Lab Results: +/- 30 days of the encounter This section includes the Chemistry and Hematology Lab Results on record with [place] for the patient. Radiology Reports and Pathology Reports are provided separately, in subsequent sections. Lab Results This section contains the Chemistry/Hematology Results that were resulted 30 days before or 30 daysafter the date of the Encounter. Date/Time Source Result Type Result - Unit Interpretation Reference Range Specimen Type Comment Sep 05, 2023 11:25 AM [facility] COMPREHENSIVE METABOLIC PANEL PLASMA Specimen Type: PLASMA Comment: No hemolysis noted. Ordering Provider: LINH MIGUEL Report Released Date/Time: Sep 05, 2023 10:39 AM Reporting Lab: [facility] [address] [facility] [id number] Performing Lab: [facility] [id number] CREATININE 1.19 mg/dL 0.70-1.30 UREA NITROGEN 17.1 mg/dL 9.0-25.0 GLUCOSE 115 mg/dL H 72-99 SODIUM 142 meq/L 136-145 POTASSIUM 4.3 meq/L 3.5-5.0 CHLORIDE 109 meq/L H 98-107 CARBON DIOXIDE 22 meq/L 22-31 CALCIUM 9.3 mg/dL 8.4-10.4 PROTEIN 7.8 g/dL 6.0-8.6 ALBUMIN 4.3 g/dL 3.4-5.0 TOTAL BILIRUBIN 0.5 mg/dL 0.2-1.2 ALKALINE PHOSPHATASE 58 U/L 40-150 AST/SGOT 16 U/L 5-34 ALT/SGPT 16 U/L 8-40 EGFR (CKD-EPI 2020) 63.70 >60 Sep 05, 2023 11:25 AM [facility] CBC BLOOD Specimen Type: BLOOD No comment entered. Ordering Provider: LINH MIGUEL Report Released Date/Time: Sep 05, 2023 10:39 AM Reporting Lab: [facility] [id number] Performing Lab: [facility] [id number] WBC 6.5 10*3/uL 3.6-11.2 RBC 5.26 10*6/uL 4.10-5.70 HGB 15.4 g/dL 13.1-16.8 HCT 45.7 38.2-48.4 MCV 86.9 fL 80.0-100.0 MCH 29.3 pg 27.0-34.0 MCHC 33.7 g/dL 33.0-36.0 PLT 204 10*3/uL 150-400 MPV 9.7 fL 7.5-11.2 RDW 13.0 11.8-15.1 LYMPHOCYTES, AUTO % 15 MONOCYTES, AUTO % 9 NEUTROPHILS, AUTO % 74 EOSINOPHILS, AUTO % 1 BASOPHILS, AUTO % 1 LYMPHOCYTES, ABSOLUTE 0.99 10*3/uL 0.77- 4.50 MONOCYTES, ABSOLUTE 0.61 10*3/uL 0.19-0. 80 NEUTROPHILS, ABSOLUTE 4.81 10*3/uL 2.10- 8.00 EOSINOPHILS, ABSOLUTE 0.04 10*3/uL 0.00- 0.60 BASOPHILS, ABSOLUTE 0.03 10*3/uL 0.00-0. 20 Sep 05, 2023 11:25 AM [facility] TSH W/ REFLEX FT4 (STL) PLASMA Specimen Type: PLASMA No comment entered. Ordering Provider: LINH MIGUEL Report Released Date/Time: Sep 05, 2023 10:39 AM Reporting Lab: [facility] [id number] Performing Lab: [facility] [id number] TSH 2.085 u[IU]/mL 0.470-5.000 Advance Directives: All historical and current Section Date Range: From patient's date of to the date document was created. This section includes ALL of a patient's completed or amended [place] Advance and Rescinded Directives. The entries below indicate that a directive exists for the patient, but an actual copy is not included with this document. The data comes from all [place] facilities. Date Advance Directives Provider Source Mar 15, 2023 ADVANCE DIRECTIVE BINU SWANSON [facility] Radiology Reports: +/- 30 days of the encounter Radiology Reports For cases when an order for radiology services may have been completed prior to the date of the Encounter, the report list includes the Radiology Reports that were completed up to 30 days before dateof the Encounter. For cases when an order for radiology services may have been completed after the date of the Encounter, the report list also includes the Radiology Reports that were completed up to30 days after date of the Encounter. The data comes from all [place] treatment facilities. Date/Time Radiology Report Provider Source Sep 28, 2023 10:[address] HEAD W/O CONT: LUKAS TREVINO [facility] [id number] M Exm Date: SEP 28, 2023@10:59 Req Phys: JESUS GUERRERO Pat Loc: [facility] PSI (Req'g Loc) Img Loc: [facility]-CT IMAGING [facility] Service: Unknown [facility] [address] [place] [address] (Case [id number] COMPLETE) CT HEAD W/O CONT (CT Detailed) CPT:07693 Reason for Study: MNCD Clinical History: Responsible Attending: Yolanda Kebede Attending Contact Number: [id number] Resident Contact Number: [place] with Dementia , increased sleeping .h/o shrapnel in head Allergies listed in CPRS chart: Patient has answered NKA Creatinine: CREATININE 1.09 mg/dL 03/13/2023 10:15 /eGFR: [facility] EGFR (within one year). CREATININE 1.09 mg/dL (03/13/23 10:15) Wt: 211.4 lb [95.89 kg] (04/10/2023 12:43) History of: Renal failure, chronic or acute renal disease: NO Report Status: Verified Date Reported: SEP 30, 2023 Date Verified: SEP 30, 2023 Communication Skills Instructor E-Sig:/ES/Jose Godfrey MD Report: CT HEAD W/O CONT CASE #: [id number] DATE:09/30/2023 8:24 AM CLINICAL HISTORY:MNCD COMPARISON: None currently available. TECHNIQUE: CT HEAD W/O CONT FINDINGS: Beam hardening streak artifact affects the lower scan slices. Brain appears developmentally unremarkable. No evidence for acute or more chronic hemorrhage. The calvarium and visualized facial bones are intact. No mass effect or midline shift. No acute sinusitis or mastoiditis. Nonspecific hypoattenuation in the periventricular and subcortical deep white matter most likely related to small vessel ischemic change. Age-appropriate volume loss. Pineal and choroid plexus calcifications. Impression: No acute intracranial hemorrhage. Small vessel ischemic and involutional changes. Primary Interpreting Staff: Jose Godfrey MD, Radiologist (Communication Skills Instructor) /JOSE GUTIERREZ [facility] Encounter Notes: All associated encounter notes This section contains the clinical notes associated to the Encounter. Date/Time Encounter Note(s) Provider Source Sep 02, 2023 01:07 PM PSYCHIATRY OUTPATI ENT NOTE: LOCAL TITLE: MENTAL HEALTH AGING RESOURCES TEAM [facility] STANDARD TITLE: PSYCHIATRY OUTPATIENT NOTE DATE OF NOTE: SEP 02, 2023@13:07 ENTRY DATE: SEP 02, 2023@13:07:55 AUTHOR: KELSY GUERRERO EXP COSIGNER: URGENCY: STATUS: COMPLETED MENTAL HEALTH AGING RESOURCES TEAM ST Has ADDENDA Modality of Care: Clinical Video Telehealth Visit conducted by Clinical Video Telehealth. Patient/surrogate provided verbal consent for video telehealth. Patient location confirmed. Emergency number confirmed. Patient Contact Details: Best contact number for backup communication with patient: Other: [facility] Informed Consent: Group Telehealth Agreement Form with Confidentiality, Risks and Consequences, Privacy, Dignity and Behavior, was reviewed and participants orally consented to those conditions to participate in this [facility] Group Visit. [facility] - MEDICATION MANAGEMENT Name..................LUKAS THACKER Age...................73 Sex...................MALE SSN...................[id number] Today's Date..........SEPTEMBER 02, 2023 Service Connection....Service Connected: Yes (50%) ALLERGIES: Patient [...] Exposure to potentially hazardous substance 2) Dementia ([facility] [id number]) VITAL SIGNS: Pulse.................84 (04/10/2023 12:43) Temperature...........97.9 F [...] DIAGNOSIS BEING TREATED THIS VISIT: Major NCD with behavioral disturbances ANY COMPLAINTS/PROBLEMS....... No initial [...] management. seen today for f/u with and she reports that has been sleeping a lot in daytime. eats breakfast and lunch and goes to sleep. then eats supper and goes to bed . Wakes up at 3-4am and awake till 7am. She reports that she did not feed him lunch as she wanted him to be awake for appointment. behavior is otherwise stable with no agitation or aggression.. [place] seen sitting next to her, and he reports doing okay. denies feeling depressed and says yes when asked if he is happy. Also says yes when askeda bout anxiety. Cannot say what he is anxious about . no clear delusional thoughts ot hallucinations expressed. denies any pain or discomfort. He is alert, appears confused and reponds to questions asked. He talks incoherently when asked to explain about anxiety. But is otherwise not very talkative, smiles in response to questions. Denies any thoughts to harm self or others. . denies any paranoea or halluciantions. mood is okay affect is calm. Tends to turn to when asked mmse questions and sayes i dont know to most questions asked. oriented to self and to , and knows her name correctly. does not know where he lives .cannot say how many dogs are at home counted 4 when there were 3 dogs sitting nearby. [place] compliant i taking all his meds and is dispensing it. He is eating well. she reports that he is taking vitamin D supplements but no other sedating meds. has not had brain scan and that he has shrapnel in his head. agrees for brain CT scan. ANY MEDICATION SIDE EFFECT....No APPETITE.................. ....Good SLEEP..................... ....Good MENTAL STATUS: MOOD/AFFECT............... ..Normal mood- happy DELUSIONS/HALLUCINATIONS.. ..Absent denies SUICIDAL/AGGRESSIVE....... ..Absent denies ALERT & ORIENTED X3 WITH GOOD CONCENTRATION........No COMMENTS: None MEDICATION CHANGE.............No SUPPORTIVE PSYCHOTHERAPY......Yes GAF:No previous GAF entered. Current Gaf: na TREATMENT PLAN: COMMENTS: NCD/behavioral problems- Recommend to decrease depakote to 125mg po hs and lexapro 10mg po hs, memantine 10mg po bid and donepezil 10mg po once daily. Will get Brain CT done. support, psychoeducation provided . f/u in 2months. call if problems before that. INSTRUCTIONS GIVEN TO PATIENT/FAMILY: Report medication side effects promptly No alcohol/illicit drug use with medication Follow up with Primary Care Provider If symptoms get worse, call clinic or Emergency Room as appropriate seen for total of 30min with 18min of supportive therapu /es/ JESUS GUERRERO MD Staff Physician, Psychiatry Signed: 09/02/2023 13:43 09/30/2023 ADDENDUM STATUS: COMPLETED had CT head done on 09/28/23 FINDINGS: Beam hardening streak artifact affects the lower scan slices. Brain appears developmentally unremarkable. No evidence for acute or more chronic hemorrhage. The calvarium and visualized facial bones are intact. No mass effect or midline shift. No acute sinusitis or mastoiditis. Nonspecific hypoattenuation in the periventricular and subcortical deep white matter most likely related to small vessel ischemic change. Age-appropriate volume loss. Pineal and choroid plexus calcifications. Impression: No acute intracranial hemorrhage. Small vessel ischemic and involutional changes. Called and spoke to about the report. /vandana/ JESUS GUERRERO MD Staff Physician, Psychiatry Signed: 09/30/2023 12:35 KELSY GUERRERO [facility] Sep 02, 2023 01:03 PM PSYCHIATRY OUTPATI ENT NOTE: LOCAL TITLE: MENTAL HEALTH AGING RESOURCES TEAM ST STANDARD TITLE: PSYCHIATRY OUTPATIENT NOTE DATE OF NOTE: SEP 02, 2023@13:03 ENTRY DATE: SEP 02, 2023@13:03:39 AUTHOR: OLIVIA SLADE EXP COSIGNER: URGENCY: STATUS: COMPLETED MST Screening: Patient denies experiencing sexual trauma (MST). Homelessness/Food Insecurity Screen: In the past 2 months, have you been living in stable housing that you own, rent, or stay in as part of a household? Yes - Living in stable housing. Are you worried or concerned that in the next 2 months you may NOT have stable housing that you own, rent, or stay in as part of a household? No - Not worried about housing near future The reports the following: Currently, you don't have enough money to get food OR you are worried that your food will run out before you get money to buy more. No /es/ OLIVIA SLADE RN Registered Nurse Signed: 09/02/2023 13:05 OLIVIA SLADE [facility]
--- OUTSIDE RECORDS SUMMARY | 2024-08-04 10:18 | XMS_ITS | Encounter Summary ---
Author Name [facility] [place] [place] Organization [facility] [place] Address [address] [place] [address] Care Team Providers Care Switchboard Manager Name Role Phone DAMASO CARRANZA Primary Care [...] PART A Feb 22, 2014 PART A [id number] LUKAS TREVINO PATIENT Selected Encounter This section includes the information on record at [place] for the Encounter. Date/Time Encounter Type Encounter Description Reason Provider Source July 24, 2024 10:00 AM OFFICE O/P EST LOW 20 MIN DERMATOLOGY ICD-10-CM L72.0 Epidermal cyst YOHANA PIERSON IHMelly Encounter Template Text not used by [place] Assessments - Encounter Diagnoses This section includes the primary and secondary diagnoses documented for the Encounter. Date/Time Primary/Secondary Diagnosis Diagnosis Name Provider Source July 24, 2024 10:49 AM PRIMARY Epidermal cyst ROSA TOWNSEND [facility] Plan of Treatment: Future Appointments (+ 6 months) and Future Tests (+/- 45 days) The Plan of Treatment section includes future care activities for the patient from all [place] treatment[place]ilities. This section includes future appointments and future orders which are active, pending or scheduled. Future Appointments This section includes appointments that were scheduled to occur 6 months from the date of the Encounter, up to a maximum of 20 appointments. The data comes from all [place] treatment facilities. Appointment Date/Time Appointment Type Appointme nt Facility Name Oct 13, 2024 10:00 AM AMBULATORY - REHAB MEDICIN E [facility] Nov 09, 2024 09:00 AM AMBULATORY - NONE [facility] Advance Directives: All historical and current Section Date Range: From patient's date of to the date document was created. This section includes ALL of a patient's completed or amended [place] Advance and Rescinded Directives. The entries below indicate that a directive exists for the patient, but an actual copy is not included with this document. The data comes from all [facility]. Date Advance Directives Provider Source Mar 15, 2023 ADVANCE DIRECTIVE BINU SWANSON [facility] Encounter Notes: All associated encounter notes This section contains the clinical notes associated to the Encounter. Date/Time Encounter Note(s) Provider Source July 24, 2024 10:30 AM DERMATOLOGY NOTE: LOCAL TITLE: DERMATOLOGY NOTE STANDARD TITLE: DERMATOLOGY NOTE DATE OF NOTE: JULY 24, 2024@10:30 ENTRY DATE: JULY 24, 2024@10:30:54 AUTHOR: ROSA TOWNSEND COSIGNER: YOHANA PIERSON URGENCY: STATUS: COMPLETED DERMATOLOGY NOTE Has ADDENDA LUKAS TREVINO is a 74 year old WHITE MALE who presents for cyst removal Patient accompanied by who is POA. Patient with cyst on right upper back, here for removal. Otherwise, no new, changing, bleeding, non healing lesions of concern. Allergies: Patient has answered NKA PE: General Appearance: Well-developed and well-nourished. No acute distress. Neuro/Psych: Alert and cooperative. Appropriate affect. Skin: 3.0 cm mobile subcutaneous nodule on right upper back OTHERWISE: Face: WNL Ears: WNL Scalp, Hair: WNL Neck: WNL Chest: WNL Abd: WNL Back: WNL A/P: Cyst, right upper back - Discussed etiology - Benign reassurance - After discussion of risks and benefits of procedure including risk of infection, joint decision made to defer excision today - Discussed follow up if lesion becomes symptomatic or worsens Return to clinic 6-12 months for FBSE /vandana/ Rosa Townsend MD Dermatology Resident Signed: 07/24/2024 10:34 /vandana/ YOHANA PIERSON MD DERMATOLOGY & DERMATOPATHOLOGY Cosigned: 07/24/2024 10:49 07/24/2024 ADDENDUM STATUS: COMPLETED Reviewed documented history and physical examination and agree with assessment and plan. I was immediately available during entire visit and procedures. /vandana/ YOHANA PIERSON MD DERMATOLOGY & DERMATOPATHOLOGY Signed: 07/24/2024 10:50 ROSA TOWNSEND [facility]
--- OUTSIDE RECORDS SUMMARY | 2024-08-04 10:18 | XMS_ITS ---
Author Name [facility] [place] Organization [place] Address [address], [place] [address] Care Team Providers Care Figure Clerk Name Role Phone DILLON DAMASO Primary Care [...] PART A Feb 22, 2014 PART A [id number] LUKAS TREVINO PATIENT Selected Encounter This section includes the information on record at [place] for the Encounter. Date/Time Encounter Type Encounter Description Reason Pro vider Source Nov 04, 2023 01:00 PM OFFICE O/P EST MOD 30 MIN PSYCHOGERIATRIC - INDIVIDUAL ICD-10-CM F03.90 Unsp dementia, unsp severity, without beh/psych/moo d/anx GURUSIDDALESHA,P RATIBHA N IHE Encounter Template Text not used by VA Assessments - Encounter Diagnoses This section includes the primary and secondary diagnoses documented for the Encounter. Date/Time Primary/Secondary Diagnosis Diagnosis Name Provider Source Nov 04, 2023 01:37 PM PRIMARY Unsp dementia, unsp severity, without beh/psych/mood/a nx YOLANDAOK ATIBTRINITY N [facility] Plan of Treatment: Future Appointments (+ 6 months) and Future Tests (+/- 45 days) The Plan of Treatment section includes future care activities for the patient from all [place] [facility]. This section includes future appointments and future orders which are active, pending or scheduled. Future Appointments This section includes appointments that were scheduled to occur 6 months from the date of the Encounter, up to a maximum of 20 appointments. The data comes from all [facility]. Appointment Date/Time Appointment Type Appointme nt Facility Name Jan 20, 2024 08:30 AM AMBULATORY - NONE [facility] Mar 30, 2024 10:00 AM AMBULATORY - REHAB MEDICIN [facility] Apr 07, 2024 08:00 AM AMBULATORY - NONE [facility] Apr 14, 2024 11:00 AM AMBULATORY - REHAB [facility] Lab Results: +/- 30 days of the encounter This section includes the Chemistry and Hematology Lab Results on record with [place] for the patient. Radiology Reports and Pathology Reports are provided separately, in subsequent sections. Lab Results This section contains the Chemistry/Hematology Results that were resulted 30 days before or 30 daysafter the date of the Encounter. Date/Time Source Result Type Result - Unit Interpretation Reference Range Specimen Type Comment Nov 08, 2023 12:00 PM [facility] OCCULT BLOOD FIT X1 SCREEN FECES Specimen Typ e: FECES No comment entered. Ordering Provider: LINH MIGUEL Report Released Date/Time: Oct 11, 2023 09:21 AM Reporting Lab: [facility] [address] [facility] [id number] Performing Lab: [facility] [address] [facility] [id number] OCCULT BLOOD (FIT) #1 OF 1 Negative Nega tive Advance Directives: All historical and current Section Date Range: From patient's date of to the date document was created. This section includes ALL of a patient's completed or amended VA Advance and Rescinded Directives. The entries below indicate that a directive exists for the patient, but an actual copy is not included with this document. The data comes from all [place] facilities. Date Advance Directives Provider Source Mar 15, 2023 ADVANCE DIRECTIVE KIKIBINUJoaquin [facility] Encounter Notes: All associated encounter notes This section contains the clinical notes associated to the Encounter. Date/Time Encounter Note(s) Provider Source Dec 26, 2023 10:56 AM ADDENDUM: LOCAL TITLE: Addendum STANDARD TITLE: ADDENDUM DATE OF NOTE: DEC 26, 2023@10:56:25 ENTRY DATE: DEC 26, 2023@10:56:25 AUTHOR: OLIVIA SLADE EXP COSIGNER: URGENCY: STATUS: COMPLETED called and l/m that vet has been up all night x 1 week. He has been getting dressed and telling her at 0430 in the morning he is going to be late for school and not being able to button his shirt correctly. Medication adjustments were made at last visit and she wants to know if he can just go back to taking what he did before. Cherelle [phone] /es/ OLIVIA SLADE RN Registered Nurse Signed: 12/26/2023 10:59 Receipt Acknowledged By: 12/26/2023 14:12 /es/ JESUS GUERRERO MD Staff Physician, Psychiatry --- Original Document --- 11/04/23 MENTAL HEALTH AGING RESOURCES TEAM ST[place]: Modality of Care: Clinical Video Telehealth Visit conducted by Clinical Video Telehealth. Patient/surrogate provided verbal consent for video telehealth. Patient location confirmed. Emergency number confirmed. Patient Contact Details: Best contact number for backup communication with patient: Other: [facility] Informed Consent: Group Telehealth Agreement Form with Confidentiality, Risks and Consequences, Privacy, Dignity and Behavior, was reviewed and participants orally consented to those conditions to participate in this [facility] Group Visit. [facility] - MEDICATION MANAGEMENT Name..................LUKAS THACKER Age...................73 Sex...................MALE SSN................... Today's Date..........NOV 04, 2023 Service Connection....Service Connected: Yes (50%) ALLERGIES: [...] Exposure to potentially hazardous substance 2) Dementia ([facility] [id number]) VITAL SIGNS: Pulse.................84 (04/10/2023 12:43) Temperature...........97.9 F [...] Seen in our clinic for medication management. [place] seen today for f/u with and she reports that has been quiet with no agitation. continues to sleep a lot in day and night. eating well. Does not like to go out and wants to come home when he is outside. Deoes not go to daycare . Has a caregiver come in 3 x a week and he plays games or sits outside with her. dispenses meds and helps him with iadls and some adls. [place] is alert, cooperative and calm but appears somewhat perplexed. denies any problems. denies any pain or discomfort. Reports his mood is good and denies any AVH or delusional thoughts. nonsponataneous speech, responding in monosyllable or short phrases to questions asked. He recognizes but does not know when his birthdays is or how old he is. He is aware that he lives in [facility] at home but does not know the state or country. He cannot recall wifes name, though she knows that she is his . He is not oriented to time . compliant with all meds and is dispensing it. had CT head done on 09/28/23 SHOWS No acute intracranial hemorrhage. Small vessel ischemic and involutional changes. ANY MEDICATION SIDE EFFECT....No APPETITE.................. ....Good SLEEP..................... ....Good MENTAL STATUS: MOOD/AFFECT............... ..Normal mood- happy.denies feeling sad or anxious DELUSIONS/HALLUCINATIONS.. ..Absent denies SUICIDAL/AGGRESSIVE....... ..Absent denies ALERT & ORIENTED X3 WITH GOOD CONCENTRATION........No COMMENTS: None MEDICATION CHANGE.............No SUPPORTIVE PSYCHOTHERAPY......Yes GAF:No previous GAF entered. Current Gaf: na TREATMENT PLAN: COMMENTS: NCD/behavioral problems- Recommend to stop depakote to 125mg po hs and continue lexapro 10mg po hs, memantine 10mg po bid and donepezil 10mg po once daily. Reiterated the importance of eating healthy, mental stimultion and physical activity regularly. f/u in 2-3months. call if problems before that. INSTRUCTIONS GIVEN TO PATIENT/FAMILY: Report medication side effects promptly No alcohol/illicit drug use with medication Follow up with Primary Care Provider If symptoms get worse, call clinic or Emergency Room as appropriate seen for total of 30min with 18min of supportive therapu /es/ JESUS GUERRERO MD Staff Physician, Psychiatry Signed: 11/04/2023 13:37 12/26/2023 ADDENDUM STATUS: UNSIGNED You may not VIEW this UNSIGNED Addendum. OLIVIA SLADE [facility] Nov 04, 2023 12:50 PM PSYCHIATRY OUTPATI ENT NOTE: LOCAL TITLE: MENTAL HEALTH AGING RESOURCES TEAM [facility] STANDARD TITLE: PSYCHIATRY OUTPATIENT NOTE DATE OF NOTE: NOV 04, 2023@12:50 ENTRY DATE: NOV 04, 2023@12:50:38 AUTHOR: KELSY GUERRERO COSIGNER: URGENCY: STATUS: COMPLETED MENTAL HEALTH AGING RESOURCES TEAM ST Has ADDENDA Modality of Care: Clinical Video Telehealth Visit conducted by Clinical Video Telehealth. Patient/surrogate provided verbal consent for video telehealth. Patient location confirmed. Emergency number confirmed. Patient Contact Details: Best contact number for backup communication with patient: Other: [facility] Informed Consent: Group Telehealth Agreement Form with Confidentiality, Risks and Consequences, Privacy, Dignity and Behavior, was reviewed and participants orally consented to those conditions to participate in this [facility] Group Visit. [facility] - MEDICATION MANAGEMENT Name..................ERICK RAJESHLUKAS KING Age...................73 Sex...................MALE SSN...................[id number] Today's Date..........NOV 04, 2023 Service Connection....Service Connected: Yes (50%) ALLERGIES: [...] Exposure to potentially hazardous substance 2) Dementia ([facility] [id number]) VITAL SIGNS: Pulse.................84 (04/10/2023 12:43) Temperature...........97.9 F [...] with and she reports that has been quiet with no agitation. continues to sleep a lot in day and night. eating well. Does not like to go out and wants to come home when he is outside. Deoes not go to daycare . Has a caregiver come in 3 x a week and he plays games or sits outside with her. dispenses meds and helps him with iadls and some adls. is alert, cooperative and calm but appears somewhat perplexed. denies any problems. denies any pain or discomfort. Reports his mood is good and denies any AVH or delusional thoughts. nonsponataneous speech, responding in monosyllable or short phrases to questions asked. He recognizes but does not know when his birthdays is or how old he is. He is aware that he lives in [facility] at home but does not know the state or country. He cannot recall wifes name, though she knows that she is his . He is not oriented to time . [place] compliant with all meds and is dispensing it. had CT head done on 09/28/23 SHOWS No acute intracranial hemorrhage. Small vessel ischemic and involutional changes. ANY MEDICATION SIDE EFFECT....No APPETITE.................. ....Good SLEEP..................... ....Good MENTAL STATUS: MOOD/AFFECT............... ..Normal mood- happy.denies feeling sad or anxious DELUSIONS/HALLUCINATIONS.. ..Absent denies SUICIDAL/AGGRESSIVE....... ..Absent denies ALERT & ORIENTED X3 WITH GOOD CONCENTRATION........No COMMENTS: None MEDICATION CHANGE.............No SUPPORTIVE PSYCHOTHERAPY......Yes GAF:No previous GAF entered. Current Gaf: na TREATMENT PLAN: COMMENTS: NCD/behavioral problems- Recommend to stop depakote to 125mg po hs and continue lexapro 10mg po hs, memantine 10mg po bid and donepezil 10mg po once daily. Reiterated the importance of eating healthy, mental stimultion and physical activity regularly. f/u in 2-3months. call if problems before that. INSTRUCTIONS GIVEN TO PATIENT/FAMILY: Report medication side effects promptly No alcohol/illicit drug use with medication Follow up with Primary Care Provider If symptoms get worse, call clinic or Emergency Room as appropriate seen for total of 30min with 18min of supportive therapu /es/ JESUS UGERRERO MD Staff Physician, Psychiatry Signed: 11/04/2023 13:37 12/26/2023 ADDENDUM STATUS: COMPLETED called and l/m that vet has been up all night x 1 week. He has been getting dressed and telling her at 0430 in the morning he is going to be late for school and not being able to button his shirt correctly. Medication adjustments were made at last visit and she wants to know if he can just go back to taking what he did before. C[place]lle [phone] /es/ OLIVIA SLADE RN Registered Nurse Signed: 12/26/2023 10:59 Receipt Acknowledged By: 12/26/2023 14:12 /vandana/ JESUS GUERRERO MD Staff Physician, Psychiatry 12/26/2023 ADDENDUM STATUS: COMPLETED Called back and talked to and she reports that he is not sleeping through the night and is more confused waking up early in the morning , taking out all clothes from closet, dressing himself ready to go to school etc. reports that this has been a problems since he went off the depakote. She is tired and not able to sleep when he is up at night. He is compliant with all other meds. will restart depakote sprinkles 125mg po bedtime and 125mg po am prn for agitaion. support and psychoeducation provided to .. /vandana/ JESUS GUERRERO MD Staff Physician, Psychiatry Signed: 12/26/2023 14:17 KELSY GUERRERO [facility]
--- OUTSIDE RECORDS SUMMARY | 2024-08-04 10:18 | XMS_ITS | Encounter Summary ---
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 Date/Time Encounter Type Encounter Description Reason Pro vider Source Apr 07, 2024 08:00 AM OFFICE O/P EST MOD 30 MIN PSYCHOGERIATRIC - INDIVIDUAL ICD-10-CM F03.90 Unsp dementia, unsp severity, without beh/psych/moo d/anx GURUSIDDALESHA,P RATIBHA N IHE Encounter Template Text not used by VA Assessments - Encounter Diagnoses This section includes the primary and secondary diagnoses documented for the Encounter. Date/Time Primary/Secondary Diagnosis Diagnosis Name Provider Source Apr 07, 2024 06:40 PM PRIMARY Unsp dementia, unsp severity, without beh/psych/mood/a nx YOLANDANC ATIBTRINITY N [facility] Plan of Treatment: Future Appointments (+ 6 months) and Future Tests (+/- 45 days) The Plan of Treatment section includes future care activities for the patient from all [place] [facility]. This section includes future appointments and future orders which are active, pending or scheduled. Future Appointments This section includes appointments that were scheduled to occur 6 months from the date of the Encounter, up to a maximum of 20 appointments. The data comes from all [place] treatment facilities. Appointment Date/Time Appointment Type Appointme nt Facility Name Apr 14, 2024 11:00 AM AMBULATORY - REHAB MEDICIN E [facility] Jun 15, 2024 08:00 AM AMBULATORY - NONE [facility] Jun 17, 2024 03:30 PM AMBULATORY - MEDICINE [facility] Jul 06, 2024 09:00 AM AMBULATORY - NONE [facility] July 24, 2024 10:00 AM AMBULATORY - [facility]ICINE [facility] Advance Directives: All historical and current Section Date Range: From patient's date of to the date document was created. This section includes ALL of a patient's completed or amended [place] Advance and Rescinded Directives. The entries below indicate that a directive exists for the patient, but an actual copy is not included with this document. The data comes from all [facility]. Date Advance Directives Provider Source Mar 15, 2023 ADVANCE DIRECTIVE [facility] Encounter Notes: All associated encounter notes This section contains the clinical notes associated to the Encounter. Date/Time Encounter Note(s) Provider Source Apr 07, 2024 07:58 AM MENTAL HEALTH NOTE : LOCAL TITLE: [facility] NEEDS ASSESSMENT AND INTERVENTION PLAN STANDARD TITLE: MENTAL HEALTH NOTE DATE OF NOTE: APR 07, 2024@07:58 ENTRY DATE: APR 07, 2024@07:58:30 AUTHOR: OLIVIA SLADE COSIGNER: URGENCY: STATUS: COMPLETED Visit conducted by synchronous telehealth. Patient verbal consent obtained. Location/emergency number confirmed. Environment surveyed and all participants identified. Virtual conference room locked. confirmed being in a private and safe space. [place]'s location during session: Home: [address] [place] [address] [place] [address] [place]'s telephone number during session: Emergency number for [place]'s location during session: Phone: [phone] ([phone] Others present for visit with patient's consent: Name: Mahesh Follow-up [facility] Care Coordination Intervention Plan Assessment and review of interventions in progress: SIGNIFICANT CHANGES TO CARE COORDINATION NEEDS: Current assessed care coordination needs: Follow-up as clinically indicated: reminders Time spent: 5 minutes Suicide Screen - V: C-SSRS Screening [place] Suicide Severity Rating Scale (C-SSRS) screener 1. Over the past month, have you wished you were or wished you could go to sleep and not wake up? No 2. Over the past month, have you had any actual thoughts of killing yourself? No 3. Over the past month, have you been thinking about how you might do this? Response not required due to responses to other questions. 4. Over the past month, have you had these thoughts and had some intention of acting on them? Response not required due to responses to other questions. 5. Over the past month, have you started to work out or worked out the details of how to kill yourself? Response not required due to responses to other questions. 6. If yes, at any time in the past month did you intend to carry out this plan? Response not required due to responses to other questions. 7. In your lifetime, have you ever done anything, started to do anything, or prepared to do anything to end your life (for example, collected pills, obtained a gun, gave away valuables, went to the roof but didn't jump)? No 8. If YES, was this within the past 3 months? Response not required due to responses to other questions. Alcohol Use Screen (AUDIT-C) - V: Alcohol Screen: SCREEN FOR ALCOHOL (AUDIT-C) An alcohol screening test (AUDIT-C) was negative (score=0). 1. How often did you have a drink containing alcohol in the past year? Consider a drink to be a 12 ounce can or bottle of regular beer, 8 ounces of malt liquor, a 5 ounce glass of table wine, or a 1.5 ounce shot of liquor (like scotch, gin, or vodka). Never 2. How many drinks containing alcohol did you have on a typical day when you were drinking in the past year? Response not required due to responses to other questions. 3. How often did you have six or more drinks on one occasion in the past year? Response not required due to responses to other questions. Depression Screening - V: Perform PHQ-2 A PHQ-2 screen was performed. The score was 0 which is a negative screen for depression. Over the past two weeks, how often have you been bothered by the following problems? 1. Little interest or pleasure in doing things Not at all 2. Feeling down, depressed, or hopeless Not at all /vandana/ OLIVIA SLADE RN Registered Nurse Signed: 04/07/2024 08:07 OLIVIA SLADE [facility] Apr 07, 2024 07:57 AM PSYCHIATRY OUTPATI ENT NOTE: LOCAL TITLE: MENTAL HEALTH AGING RESOURCES TEAM [facility] STANDARD TITLE: PSYCHIATRY OUTPATIENT NOTE DATE OF NOTE: APR 07, 2024@07:57 ENTRY DATE: APR 07, 2024@07:57:12 AUTHOR: KELSY GUERRERO EXP COSIGNER: URGENCY: STATUS: COMPLETED Modality of Care: Clinical Video Telehealth Visit [...] to participate in this VVC Group Visit. [facility] - MEDICATION MANAGEMENT Name..................LUKAS RAMAN Age...................73 Sex...................MAL E SSN................... Today's Date..........APR 07, 2024 Service Connection....Service Connected: Yes (50%) ALLERGIES: [...] Exposure to potentially hazardous substance 2) Dementia ([facility] [id number]) VITAL SIGNS: Pulse.................84 (04/10/2023 12:43) Temperature...........97. 9 F [36.6 C] (04/10/2023 12:43) Blood Pressure........135/90 (04/10/2023 12:43) Pain..................0 (04/10/2023 12:43) Weight................211 .4 lb [95.89 kg] (04/10/2023 12:43) Patient Weight [...] data available TRIGLYCERIDES...273 mg/dL H (03/13/23 10:15) CHOLESTEROL.....CHOLESTER OL 212 H mg/dL 03/13/2023 10:15 TSH.............TSH 1.862 uIU/mL 03/13/2023 10:15 LITHIUM.........____ VALPROIC ACID...____ DIAGNOSIS BEING TREATED THIS VISIT: Major NCD severe with behavioral disturbances ANY COMPLAINTS/PROBLEMS...... .No initial eval mar 2023 72yrs old white [...] and denies any problems. is dysphasic with lited verbal communications. He is oriented to person and not to time or place . He denies any pain and denies being anxious or depressed. no psychotic symptoms reported. reports that has a new caregiver at present come 3x week and she tries to spend time with him talking and reading books. [place] also reportedly enjoys watching some shows on TV. He sometimes gets frustrated at night as he is not able to sleep and he wanders around the house. TV in veterans room is on during the night to help the dogs from barking. Encouraged for to have dim light to assist him in walking around and avoid noice and light from TV so it is more comfortable for him to relax and rest dispenses meds and he is compliant. ANY MEDICATION SIDE EFFECT....No APPETITE................. .....Good SLEEP.................... .....Good MENTAL STATUS: MOOD/AFFECT.............. ...Normal mood- alright denies feeling sad or anxious affect- anxious DELUSIONS/HALLUCINATIONS. ...Absent denies SUICIDAL/AGGRESSIVE...... ...Absent denies ALERT & ORIENTED X3 WITH GOOD CONCENTRATION........No COMMENTS: None MEDICATION CHANGE.............No SUPPORTIVE PSYCHOTHERAPY......Yes GAF:No previous GAF entered. Current Gaf: na TREATMENT PLAN: COMMENTS: NCD/behavioral problems- continues same meds- depakote to 125mg po hs and continue lexapro 10mg po hs, memantine 10mg po bid and donepezil 10mg po once daily. Discussed with that it would be helpful to not have TV on in his bedroom at night as the light and sound would affect his sleeping . It is important to use the bed for sleeping only to maintain proper sleep. f/u [id number]. call if problems before that. INSTRUCTIONS GIVEN TO PATIENT/FAMILY: Report medication side effects promptly No alcohol/illicit drug use with medication Follow up with Primary Care Provider If symptoms get worse, call clinic or Emergency Room as appropriate seen for total of 30min with 18min of supportive therapu /es/ JESUS GUERRERO MD Staff Physician, Psychiatry Signed: 04/07/2024 18:46 WALI GUERRERO [facility]
--- OUTSIDE RECORDS SUMMARY | 2024-08-04 10:19 | XMS_ITS | Encounter Summary ---
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 own medications: (0 points) Is not capable of dispensing own medication. Ability to handle finances: (0 points) Incapable of handling money. Total score: 0 points 8 = High function, independent 0 = Low function, dependent Falls Screen: One fall with no injury within the last 12 months. Incontinence Screen: No incontinence. /vandana/ AIMEE BOTELLO JR, LPN LICENSED PRACTICAL NURSE Signed: 09/05/2023 09:46 09/05/2023 ADDENDUM STATUS: COMPLETED Herpes Zoster (Shingles) Vaccine: The patient declines to receive the recommended dose of zoster (shingles) vaccine. Immunization: ZOSTER RECOMBINANT Refusal Reason: PATIENT DECISION Patient refuses all immunization(s) in the ZOSTER group Date Documented: 09/05/23 12:16 Pneumococcal Conjugate Vaccine (PCV15/PCV20): Refuses PCV vaccine Immunization: PNEUMOCOCCAL CONJUGATE, UNSPECIFIED FORMULATION Refusal Reason: PATIENT DECISION Patient refuses all immunization(s) in the PneumoPCV group Date Documented: 09/05/23 12:16 /vandana/ AIMEE BOTELLO JR, LPN LICENSED PRACTICAL NURSE Signed: 09/05/2023 12:16 AIMEE BOTELLO [facility]
--- OUTSIDE RECORDS SUMMARY | 2024-08-04 10:19 | XMS_ITS | Encounter Summary ---
Author Organization [facility] Address [address] [place] [address] Phone Care Team Providers Care Sausage Cutter Name Role Phone Rg Mcgee MD Primary Care Provider Encounter Details Date Type Department Care Team (Late st Contact Info) Description 01/25/2021 Documentation [facility] [address] [place] [address] Mana Glass, PhD [address] [facility] [address] [place] [address] Social History Tobacco Use Types Packs/Day Years Used Date Smoking Tobacco: Never Smokeless Tobacco: Former Chew AUDIT-C Answer Date Recorded Q1: How often do you have a drink containing alc ohol? Never 12/19/2020 Average Number of Drinks Not on file 021 Q3: How often do you have si x or more drinks on one occasion? 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
--- OUTSIDE RECORDS SUMMARY | 2024-08-04 10:19 | XMS_ITS | Encounter Summary ---
Author Name [facility] [place] [facility] [place] [facility] [place] Address [address], [place] [address] Care Team Providers Care Culinary Arts Instructor Name Role Phone DAMASO CARRANZA Primary Care [...] Member ID Insurance Provider's Telephone Number Policy Nebwy's Name Patient's Relationship to Policy [place] MEDICARE (WNR) MEDICARE (M) PART A Feb 22, 2014 PART A [id number] LUKAS TREVINO PATIENT Selected Encounter This section includes the information on record at [place] for the Encounter. Date/Time Encounter Type Encounter Description Reason Provider Source Jan 20, 2024 08:30 AM OFFICE O/P EST MOD 30 MIN PSYCHOGERIATRIC - INDIVIDUAL ICD-10-CM F03.918 Unsp dementia, unsp severity, with other behavioral disturb GURITA JESUS N IHE Encounter Template Text not used by [place] Assessments - Encounter Diagnoses This section includes the primary and secondary diagnoses documented for the Encounter. Date/Time Primary/Secondary Diagnosis Diagnosis Name Provider Source Jan 20, 2024 09:01 AM PRIMARY Unsp dementia, unsp severity, with other behavioral disturb GURITA,P RATIBHA N [facility] Plan of Treatment: Future Appointments (+ 6 months) and Future Tests (+/- 45 days) The Plan of Treatment section includes future care activities for the patient from all [place] [facility] This section includes future appointments and future orders which are active, pending or scheduled. Future Appointments This section includes appointments that were scheduled to occur 6 months from the date of the Encounter, up to a maximum of 20 appointments. The data comes from all [place] treatment [facility]. Appointment Date/Time Appointment Type Appointme nt Facility Name Mar 30, 2024 10:00 AM AMBULATORY - REHAB MEDICIN E [facility] Apr 07, 2024 08:00 AM AMBULATORY - NONE [facility] Apr 14, 2024 11:00 AM AMBULATORY - REHAB MEDICIN E [facility] Jun 15, 2024 08:00 AM AMBULATORY - NONE [facility] Jun 17, 2024 03:30 PM AMBULATORY - MEDICINE [facility] Jul 06, 2024 09:00 AM AMBULATORY - NONE [facility] Advance Directives: All historical and current Section Date Range: From patient's date of to the date document was created. This section includes ALL of a patient's completed or amended [place] Advance and Rescinded Directives. The entries below indicate that a directive exists for the patient, but an actual copy is not included with this document. The data comes from all [facility]. Date Advance Directives Provider Source Mar 15, 2023 ADVANCE DIRECTIVE BINU SWANSON [facility] Encounter Notes: All associated encounter notes This section contains the clinical notes associated to the Encounter. Date/Time Encounter Note(s) Provider Source Jan 20, 2024 07:52 AM PSYCHIATRY OUTPATI ENT NOTE: LOCAL TITLE: MENTAL HEALTH AGING RESOURCES TEAM ST STANDARD TITLE: PSYCHIATRY OUTPATIENT NOTE DATE OF NOTE: JAN 20, 2024@07:52 ENTRY DATE: JAN 20, 2024@07:52:49 AUTHOR: KELSY GUERRERO EXP COSIGNER: URGENCY: STATUS: COMPLETED Modality of Care: Clinical Video Telehealth Visit conducted by Clinical Video Telehealth. Patient/surrogate provided verbal consent for video telehealth. Patient location confirmed. Emergency number confirmed. Patient Contact Details: Best contact number for backup communication with patient: Other: [facility] Informed Consent: Group Telehealth Agreement Form with Confidentiality, Risks and Consequences, Privacy, Dignity and Behavior, was reviewed and participants orally consented to those conditions to participate in this [facility] Group Visit. [facility] - MEDICATION MANAGEMENT Name..................ERICK RAJESHLUKAS KING Age...................73 Sex...................MALE SSN...................[id number] Today's Date..........JAN 20, 2024 Service Connection....Service Connected: Yes (50%) ALLERGIES: [...] Exposure to potentially hazardous substance 2) Dementia ([facility] [id number]) VITAL SIGNS: Pulse.................84 (04/10/2023 12:43) Temperature...........97.9 F [...] Seen in our clinic for medication management. [place] seen today for f/u with and his caregiver was also in the room with him. reports that has been waking up in the middle of the night and going to garage as he cannot find his way to bathroom. somenights he is waking up and trying to pull out all the socks from the drawer as he was looking for socks. cannot put on the winter socks and getting frustrated with it. He is back on depakote now and is sleeping a little better. will watch for it and call if problems. eating well. no aggressions. continues to be confused and is not oriented to person, aware that he is at home but not oriented to time. does not recognise , reports that she is his mother. denies any paranoea, halluciantions. appears anxious with questions . nonspontaneous and minimal speech, responds to questions with short replies. denies any pain or discomfort. Does not like to go out and wants to come home when he is outside. does not go to daycare . Has a caregiver at home 3 x a week and he plays games or sits outside with her. dispenses meds and helps him with iadls and some adls. [place] compliant with all meds and is dispensing it. ANY MEDICATION SIDE EFFECT....No APPETITE.................. ....Good SLEEP..................... ....Good MENTAL STATUS: MOOD/AFFECT............... ..Normal mood- alright denies feeling sad or anxious affect- anxious DELUSIONS/HALLUCINATIONS.. ..Absent denies SUICIDAL/AGGRESSIVE....... ..Absent denies ALERT & ORIENTED X3 WITH GOOD CONCENTRATION........No COMMENTS: None MEDICATION CHANGE.............No SUPPORTIVE PSYCHOTHERAPY......Yes GAF:No previous GAF entered. Current Gaf: na TREATMENT PLAN: COMMENTS: NCD/behavioral problems- continues same meds- depakote to 125mg po hs and continue lexapro 10mg po hs, memantine 10mg po bid and donepezil 10mg po once daily. Discussed with about trying to redirect and assist with toileting and adls if he is not able to find bathroom or is looking for things or doing things that he cannot do etc. Reiterated the importance of eating healthy, mental [...] JESUS GUERRERO MD Staff Physician, Psychiatry Signed: 01/20/2024 09:06 KELSY GUERRERO [facility] Jan 16, 2024 12:53 PM MENTAL HEALTH TELE PHONE ENCOUNTER NOTE: LOCAL TITLE: [facility] TELEPHONE [facility] STANDARD TITLE: MENTAL HEALTH TELEPHONE ENCOUNTER NOTE DATE OF NOTE: JAN 16, 2024@12:53 ENTRY DATE: JAN 16, 2024@12:53:57 AUTHOR: OLIVIA SLADE EXP COSIGNER: URGENCY: STATUS: COMPLETED Called vet. and l/m as a reminder that they have a VVC appt. for Dr. Jimenez on 01/20/2024 @ 0830. I have left my name and number, so that they can call me and verify that they have received their email reminder. with instructions enclosed. Link email will arrive the day of their appt. so that they can connect for their appt. /es/ OLIVIA SLADE RN Registered Nurse Signed: 01/16/2024 12:54 OLIVIA SLADE [facility]
--- OUTSIDE RECORDS SUMMARY | 2024-08-04 10:19 | XMS_ITS | Clinical Summary ---
Author Organization [facility] [place] [facility] Address [facility] [place] [address] Care Team Providers Care General Production Manager Name Role Phone Rg Mcgee MD Primary Care Provider Allergies No known active allergies Medications donepeziL (ARICEPT) 10 mg tablet Take 10 mg by mouth daily 07/30/2020 Active memantine (NAMENDA) 10 mg tablet Take 10 mg by mouth 2 (two) times a day 07/30/2020 Active Active Problems Problem Noted Date Diagnosed Date Memory loss 01/25/2021 Agitation 01/25/2021 Dementia without behavioral disturbance 08/17/19 21 Immunizations Immunization Administration Dates Next Due Influenza, Quadrivalent, Hig h Dose, Preservative Free, Intrr 11/23/2020 Surgical History Surgery Date Site/Laterality Comments EYE SURGERY ARM SURGERY WRIST SURGERY Medical History Medical History Date Comments Dementia (HCC) Family History Medical History Relation Name Comments Alzheimer's disease Brother 1 No Known Problems Brother 2 No Known Problems Father Alzheimer's disease Mother No Known Problems Sister Relation Name Status Comments Brother 1 Alive Brother 2 Alive Father Mother Sister Alive Social History Tobacco Use Types Packs/Day Years [...] on file 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 Gender Identity Not on file Sexual Orientation Not on file Obstetrics History Last Filed Vital Signs Vital Sign Reading Time Taken Comments Blood Pressure 132/74 12/19/2020 2:49 PM CDT Pulse 71 12/19/2020 2:49 PM CDT Temperature 36.3 C (97.4 F) 12/19/2020 2:49 PM CDT Respiratory Rate - - Oxygen Saturation - - Inhaled Oxygen Concentration - - Weight 88.6 kg (195 lb 6.4 oz) 12/19/2020 2:49 P M CDT Height 182.9 cm (6') 12/19/2020 2:49 PM CDT Body Mass Index 26.5 12/19/2020 2:49 PM CDT Plan of Treatment Not on file Insurance [facility] [address] [place] [address] [place] [address] Care Teams General Production Manager Relationship Specialty Start Date End Date Rg Mcgee MD [address] [address] PCP - General Family Medicine 07/08/20
--- OUTSIDE RECORDS SUMMARY | 2024-08-04 10:19 | XMS_ITS | Referral Summary ---
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
--- OUTSIDE RECORDS SUMMARY | 2024-08-04 10:19 | XMS_ITS | Encounter Summary ---
Author Name [facility] [place] Organization [facility] [facility] [place] Address [address] [place] [address] Care Team Providers Care Facilities Assistant Name Role Phone DAMASO CARRANZA Primary Care [...] PART A Feb 22, 2014 PART A [id number] LUKAS TREVINO PATIENT Selected Encounter This section includes the information on record at [place] for the Encounter. Date/Time Encounter Type Encounter Description Reason Provider Source Jun 17, 2024 03:30 PM OFFICE O/P EST LOW 20 MIN DERMATOLOGY ICD-10-CM D48.5 Neoplasm of uncertain behavior of skin LUISITO ATKINSON Melly Encounter Template Text not used by [place] Assessments - Encounter Diagnoses This section includes the primary and secondary diagnoses documented for the Encounter. Date/Time Primary/Secondary Diagnosis Diagnosis Name Provider Source Jun 17, 2024 03:51 PM PRIMARY Neoplasm of uncertain behavior of skin NAKIA CHENEY [facility] Plan of Treatment: Future Appointments (+ [...] 20 appointments. The data comes from all [facility]. Appointment Date/Time Appointment Type Appointme nt Facility Name Jul 06, 2024 09:00 AM AMBULATORY - NONE [facility] July 24, 2024 10:00 AM AMBULATORY - MEDICINE [facility] Oct 13, 2024 10:00 AM AMBULATORY - REHAB MEDICIN E [facility] Nov 09, 2024 09:00 AM AMBULATORY - NONE [facility] Active, Pending, and Scheduled Orders This section includes a listing of several types of active, pending, and scheduled orders, including clinic medications orders, diagnostic test orders, procedure orders and consult orders; where the start date of the order is 45 days before the date of the Encounter or 45 days after the date of theEncounter. The data comes from all [facility]. Test Date/Time Test Type Test Details Facility Name May 26, 2024 10:19 AM Consult Order [facility] HOMEMAKER/HOME HEALTH AIDE [facility] Cons Intermediate Teacher's Choice [facility] Advance Directives: All historical and current Section Date Range: From patient's date of to the date document was created. This section includes ALL of a patient's completed or amended [place] Advance and Rescinded Directives. The entries below indicate that a directive exists for the patient, but an actual copy is not included with this document. The data comes from all [facility]. Date Advance Directives Provider Source Mar 15, 2023 ADVANCE DIRECTIVE BINU SWANSON [facility] Encounter Notes: All associated encounter notes This section contains the clinical notes associated to the Encounter. Date/Time Encounter Note(s) Provider Source Jun 17, 2024 03:39 PM DERMATOLOGY CONSUL T: LOCAL TITLE: DERMATOLOGY CONSULT [facility] STANDARD TITLE: DERMATOLOGY CONSULT DATE OF NOTE: JUN 17, 2024@15:39 ENTRY DATE: JUN 17, 2024@15:39:42 AUTHOR: JENNY CHENEY EXP COSIGNER: PAULA ATKINSON URGENCY: STATUS: COMPLETED DERMATOLOGY CONSULT [facility] Has ADDENDA DERM CONSULT NOTE LUKAS TREVINO is a 74 year MALE with history of skin cancer presenting for CONSULTATION OF: pt has cyst to the right side of his back about 4cm in diameter Today: Patient and here for eval of a cyst that has been growing and getting uncomfortable Allergies: Patient has answered NKA ROS: all systems reviewed and were negative except as noted in the HPI Family history of skin cancer (non-melanoma, melanoma): OBJECTIVE Physical Examination - subq nodule with central puctum on the right upper back otherwise: General Appearance: Well Appearing MALE, NAD Mood/Affect: pleasant/appropriate Face: WNL Ears: WNL Nose: WNL Forehead: WNL Scalp, Hair: no scale Neck: WNL Chest: WNL Abd: WNL Back: WNL Upper Extremities: WNL Lower Extremities: WNL Nails/Hair: WNL ASSESSMENT AND PLAN # Neoplasm Location: right upper back DDx: likely cyst Will schedule for excision -No additional lesions suspicious for skin cancer on areas examined. Pt phone: RTC PRN Jenny Cheney MD PGY-2 Dermatology Resident /vadnana/ Jenny Cheney MD Rn Picu Signed: 06/17/2024 15:51 /vandana/ PAULA ATKINSON MD STAFF DRAFTER DIRECTIONAL SURVEY Cosigned: 06/17/2024 16:21 06/17/2024 ADDENDUM STATUS: COMPLETED Discussed case with resident. Agree with history, physical examination, assessment, and plan. /vandana/ PAULA ATKINSON MD STAFF DRAFTER DIRECTIONAL SURVEY Signed: 06/17/2024 16:[address] [facility]
[2024-08-04 11:26] LABS: Alanine Aminotransferase 45 U/L (6-50); Aspartate Amino Transferase 36 U/L (17-59)
== END 2024-08-04 10:04 | disposition home or self-care (01) ==
PROVIDERS: PCP Family Medicine; Visit Provider Podiatrist Foot & Ankle Surgery
DX: B35.1 Tinea unguium (principal)
CPT/HCPCS: 36415; 84450; 84460

== ENCOUNTER 2024-11-05 11:13 | Outpatient (CLI) | payer MEDICARE, OTHER, SELFPAY ==
--- OUTSIDE RECORDS SUMMARY | 2024-11-05 11:33 | XMS_ITS | Continuity of Care Document ---
Author Name [facility] Organization [facility] Care Team Providers Care Front Edger Name Role Phone [facility] Unavailable Unavailable Problems Combined list of problems from [facility] and [facility] facilities. It does not include entries that were removed or entered in error. Problem Status Onset Date Problem Type Date of Resolution Comments Source Dementia ([facility] [id number]) Active Condition [facility] Exposure to potentially hazardous substance Active Condition Feb 19, 2023 Entered By: CRYSTAL KENYON I Comment: Agent [place] [facility] History of malignant neoplasm of prostate Active Condition [facility] Hyperlipidemia Active Condition [facility] Urinary incontinence Active Condition [facility] Diagnosis: ICD-10-CM F03.90 Unsp dementia, unsp severity, without beh/psych/mood/anx Active Diagnosis [facility] Diagnosis: ICD-10-CM L72.0 Epidermal cyst Active Diagnosis [facility] Diagnosis: ICD-10-CM 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 and [facility] facilities.Medications provided include 1) outpatient medications from the last 15 months, and 2) patient-reported medications. Medication Details Route Status Patient Instructions Prescription Expires Prescription Number Last Dispense Date Ordering Provider Order Date Order Qty Source ARIPIPRAZOL E 5MG TAB TAKE ONE TABLET BY MOUTH ONCE A DAY MOOD STABLIZE R ORAL ACTIVE 07/07/2025 [id number] GURUSIDDA EMMANUEL,PRATI BHA N 2024 30 [facility] DIVISIO N ARIPIPRAZOL E 5MG TAB TAKE ONE TABLET BY MOUTH ONCE A DAY MOOD STABLIZE R ORAL DISCONT INUED 07/28/2024 [id number] 5 GURUSIDDA EMMANUELPRATI BHA N 2024 30 [facility] DIVISIO N ARIPIPRAZOL E 5MG TAB TAKE ONE TABLET BY MOUTH ONCE A DAY MOOD STABLIZE R ORAL DISCONT INUED 07/01/2024 [id number] 5 GURUSIDDA EMMANUELPRATI BHA N 2024 30 [facility] DIVISIO N ARIPIPRAZOL E 5MG TAB TAKE ONE TABLET BY MOUTH ONCE A DAY MOOD STABLIZE R ORAL DISCONT INUED 05/07/2024 [id number] 5 GURUSIDDA EMMANUELPRATI BHA N 2024 30 [facility] DIVISIO N ARIPIPRAZOL E 5MG TAB TAKE ONE TABLET BY MOUTH ONCE A DAY MOOD STABLIZE R ORAL DISCONT INUED 04/30/2024 [id number] LAMONT,HOR DONI M 2024 30 [facility] DIVISIO N ARIPIPRAZOL E 5MG TAB TAKE ONE TABLET BY MOUTH ONCE A DAY MOOD STABLIZE R ORAL DISCONT INUED 03/26/2024 [id number] LAMONT,HOR DONI M 2023 30 [facility] DIVISIO N ARIPIPRAZOL E 5MG TAB TAKE ONE TABLET BY MOUTH ONCE A DAY MOOD STABLIZE R ORAL DISCONT INUED 02/21/2024 [id number] LAMONT,HOR DONI M 2023 30 [facility] DIVISIO N ARIPIPRAZOL E 5MG TAB TAKE ONE TABLET BY MOUTH ONCE A DAY MOOD STABLIZE R ORAL DISCONT INUED 01/19/2024 [id number] 4 DELICIA MIGUEL DONI M 2023 30 [facility] DIVISIO N ARIPIPRAZOL E 5MG TAB TAKE ONE TABLET BY MOUTH ONCE A DAY MOOD STABLIZE R ORAL DISCONT INUED 10/05/2023 [id number] DELICIA MIGUEL ACE M 2023 30 [facility] DIVISIO N ATORVASTATI N CA 40MG TAB TAKE ONE-HALF TABLET BY MOUTH EVERY EVENING ORAL ACTIVE 10/14/2025 [id number] 5 JEREMY CARRANZA 2024 45 [facility] DIVISIO N ATORVASTATI N CA 40MG TAB TAKE ONE-HALF TABLET BY MOUTH EVERY EVENING ORAL DISCONT INUED 05/14/2025 [id number] 5 DELICIA MIGUEL DONI M 2024 45 [facility] DIVISIO N ATORVASTATI N CA 40MG TAB TAKE ONE-HALF TABLET BY MOUTH EVERY EVENING ORAL DISCONT INUED 04/15/2024 [id number] ARIEL EUCEDA 2023 45 [facility] CHOLECALCIF RMOEL 50MCG (2,000UNIT) TAB TAKE ONE TABLET BY MOUTH ONCE A DAY ORAL ACTIVE 10/14/2025 [id number] 5 JEREMY CARRANZA 2024 100 [facility] DIVISIO N DIVALPROEX NA 125MG CAP,SPRINKL E TAKE ONE CAPSULE CONTENT OVER FOOD BY MOUTH AT BEDTIME AND TAKE ONE CAPSULE EVERY MORNING NEEDED ORAL ACTIVE 04/08/2025 [id number] ADA BELTRAN N 2024 60 [facility] DIVISIO N DIVALPROEX NA 125MG CAP,SPRINKL E TAKE ONE CAPSULE CONTENT OVER FOOD BY MOUTH AT BEDTIME AND TAKE ONE CAPSULE EVERY MORNING NEEDED ORAL DISCONT INUED (EDIT) 12/26/2024 [id number] ADA BELTRAN BHA N 2023 60 [facility] DIVISIO N DIVALPROEX NA 125MG CAP,SPRINKL E TAKE ONE CAPSULE CONTENT OVER FOOD BY MOUTH AT BEDTIME MOOD ORAL DISCONT INUED BY PROVIDE R 09/02/2024 [id number] ADA BELTRAN BHA N 2023 60 [facility] DIVISIO N DONEPEZIL HCL 10MG TAB TAKE ONE TABLET BY MOUTH AT BEDTIME FOR ALZHEIME R DISEASE (JUST BEFORE BEDTIME) ORAL ACTIVE 07/07/2025 [id number] 5 SIKARL BENITEZPRASCARLET BHA N 2024 90 [facility] DIVISIO N DONEPEZIL HCL 10MG TAB TAKE ONE TABLET BY MOUTH AT BEDTIME FOR ALZHEIME R DISEASE (JUST BEFORE BEDTIME) ORAL DISCONT INUED 07/06/2024 [id number] 5 ADA BELTRAN BHA N 2024 90 [facility] DIVISIO N DONEPEZIL HCL 10MG TAB TAKE ONE TABLET BY MOUTH AT BEDTIME FOR ALZHEIME R DISEASE (JUST BEFORE BEDTIME) ORAL DISCONT INUED 04/19/2024 [id number] 4 SIIVAN TUCKERTI BHA N 2023 90 [facility] DIVISIO N DONEPEZIL HCL 10MG TAB TAKE ONE TABLET BY MOUTH AT BEDTIME FOR ALZHEIME R DISEASE (JUST BEFORE BEDTIME) ORAL DISCONT INUED 02/02/2024 [id number] 4 GURUSIDDA EMMANUELPRATI BHA N 2023 90 [facility] DIVISIO N DONEPEZIL HCL 10MG TAB TAKE ONE TABLET BY MOUTH AT BEDTIME FOR ALZHEIME R DISEASE (JUST BEFORE BEDTIME) ORAL DISCONT INUED 12/01/2023 [id number] 4 GURUSIDDA EMMANUELPRATI BHA N 2023 90 [facility] DIVISIO N DONEPEZIL HCL 10MG TAB TAKE ONE TABLET BY MOUTH AT BEDTIME FOR ALZHEIME R DISEASE (JUST BEFORE BEDTIME) ORAL DISCONT INUED 11/26/2023 [id number] 4 GURUSIDDA EMMANUELPRATI BHA N 2023 90 [facility] DIVISIO N DONEPEZIL HCL 10MG TAB TAKE ONE TABLET BY MOUTH AT BEDTIME FOR ALZHEIME R DISEASE (JUST BEFORE BEDTIME) ORAL DISCONT INUED 11/23/2023 [id number] 4 GURUSIDDA EMMANUELPRATI BHA N 2023 90 [facility] DIVISIO N ESCITALOPRA M OXALATE 20MG TAB TAKE ONE-HALF TABLET BY MOUTH ONCE A DAY FOR DEPRESSI ON ORAL ACTIVE 07/07/2025 [id number] 5 GURUSIDDA EMMANUELPRATI BHA N 2024 45 [facility] DIVISIO N ESCITALOPRA M OXALATE 20MG TAB TAKE ONE-HALF TABLET BY MOUTH ONCE A DAY FOR DEPRESSI ON ORAL DISCONT INUED 07/06/2024 [id number] 5 GURUSIDDA EMMANUELPRATI BHA N 2024 45 [facility] DIVISIO N ESCITALOPRA M OXALATE 20MG TAB TAKE ONE-HALF TABLET BY MOUTH ONCE A DAY FOR DEPRESSI ON ORAL DISCONT INUED 01/20/2025 [id number] 4 GURUSIDDA EMMANUEL,PRATI BHA N 2023 15 [facility] DIVISIO N ESCITALOPRA M OXALATE 20MG TAB TAKE ONE-HALF TABLET BY MOUTH ONCE A DAY FOR DEPRESSI ON ORAL DISCONT INUED 07/04/2024 [id number] 5 GURUSIDDA EMMANUEL,PRATI BHA N 2024 45 [facility] DIVISIO N ESCITALOPRA M OXALATE 20MG TAB TAKE ONE-HALF TABLET BY MOUTH ONCE A DAY FOR DEPRESSI ON ORAL DISCONT INUED 01/08/2025 [id number] 4 GURUSIDDA EMMANUELPRATI BHA N 2023 15 [facility] DIVISIO N ESCITALOPRA M OXALATE 20MG TAB TAKE ONE-HALF TABLET BY MOUTH ONCE A DAY FOR DEPRESSI ON ORAL DISCONT INUED 11/04/2024 [id number] 4 GURUSIDDA EMMANUELPRATI BHA N 2023 15 [facility] DIVISIO N ESCITALOPRA M OXALATE 20MG TAB TAKE ONE-HALF TABLET BY MOUTH ONCE A DAY FOR DEPRESSI ON ORAL DISCONT INUED 09/02/2024 [id number] 4 GURUSIDDA EMMANUELPRATI BHA N 2023 15 [facility] DIVISIO N ESCITALOPRA M OXALATE 20MG TAB TAKE ONE-HALF TABLET BY MOUTH ONCE A DAY FOR DEPRESSI ON ORAL DISCONT INUED 07/22/2024 [id number] 4 GURUSIDDA EMMANUELPRATI BHA N 2023 15 [facility] DIVISIO N MEMANTINE HCL 10MG TAB TAKE ONE TABLET BY MOUTH EVERY MORNING AND EVENING ORAL ACTIVE 04/08/2025 [id number] 5 SIKARL BENITEZPRATI BHA N 2024 180 [facility] DIVISIO N MEMANTINE HCL 10MG TAB TAKE ONE TABLET BY MOUTH EVERY MORNING AND EVENING ORAL DISCONT INUED 01/20/2025 [id number] 4 GURUSIDDA EMMANUELPRATI BHA N 2023 180 [facility] DIVISIO N MEMANTINE HCL 10MG TAB TAKE ONE TABLET BY MOUTH EVERY MORNING AND EVENING ORAL DISCONT INUED 11/04/2024 [id number] 4 GURUSIDDA EMMANUELPRATI BHA N 2023 180 [facility] DIVISIO N MEMANTINE HCL 10MG TAB TAKE ONE TABLET BY MOUTH EVERY MORNING AND EVENING ORAL DISCONT INUED 04/09/2024 [id number] ADA BELTRAN N 2023 180 [facility] DIVISIO N MULTIVITAMI NS CAP/TAB TAKE 1 TABLET BY MOUTH ONCE A DAY FOR NUTRITIO N/DIETAR Y SUPPLEME NTATION ORAL ACTIVE 07/28/2025 [id number] [place],IN GRID D 2024 100 [facility] MULTIVITAMI NS CAP/TAB TAKE 1 TABLET BY MOUTH ONCE A DAY FOR NUTRITIO N/DIETAR Y SUPPLEME NTATION ORAL DISCONT INUED 12/24/2024 [id number] 5 [place],IN GRID D 2023 100 [facility] MULTIVITAMI NS CAP/TAB TAKE 1 TABLET BY MOUTH ONCE A DAY FOR NUTRITIO N/DIETAR Y SUPPLEME NTATION ORAL DISCONT INUED 03/13/2024 [id number] [place],IN GRID D 2022 100 [facility] Immunizations Combined list of available immunizations from the Department of Defense and Veterans Affairs facilities. Immunization Series Date Given Administered By Site Reaction Lot Number CVX Code Drug Nursing Instructor Status Comments Source COVID-19 ([employer]), MRNA, LNP-S, PF, IMANI-SUCROSE, 30 MCG/0.3 ML (AGES 12+ YEARS) 2024 CHAVO BOTELLO LEFT DELTO ID [id number] 309 complet ed [facility] AT [facility] DIV[facility] N INFLUENZA, HIGH-DOSE, TRIVALENT, PF 2024 CHAVO BOTELLO RIGHT DELTO ID [id number] 135 complet ed [facility] AT [facility] N TDAP 2022 MAGY CORADO LEFT DELTO ID [id number] 115 complet ed [facility]MINIST[facility] AT [facility] COVID-19 (PFIZER), MRNA, LNP-S, PF, IMANI-SUCROSE, 30 MCG/0.3 ML (AGES 12+ YEARS) 1 2022 ANDREA BARKLEY RIGHT DELTO ID [id number] 309 complet ed [facility]MIN[facility] AT [facility] DIV[facility] N INFLUENZA, HIGH-DOSE, QUADRIVALENT 2022 ANDREA BARKLEY LEFT DELTO ID [id number] 197 complet ed Completed Series, [facility] N COVID-19 (MODERNA), MRNA, LNP-S, PF, 100 MCG/0.5ML DOSE OR 50 MCG/0.25ML DOSE 2 2020 207 complet ed HISTORICA L INFORMATI ON - FROM OTHER REGISTRY, [facility] DIVISIO N COVID-19 (MODERNA), MRNA, LNP-S, PF, 100 MCG/0.5ML DOSE OR 50 MCG/0.25ML DOSE 1 2020 207 complet ed HISTORICA L INFORMATI ON - FROM OTHER REGISTRY, [facility] DIVISIO N INFLUENZA, HIGH-DOSE, QUADRIVALENT 1 2020 197 complet ed HISTORICA L INFORMATI ON - FROM OTHER [facility], [facility] Results Combined list of recent chemistry, hematology and other laboratory results from Department of Defense and Veterans Affairs, ranging from 15 months to all on record, depending upon the facility. Order Name Results Value Reference Range Date Interpretation Specimen Comments Source LIPID PANEL (STL) CHOLESTERO L [MASS/VOLU ME] IN SERUM OR PLASMA 156 mg/dL 0 - 200 10/22 Specimen Type: PLASMA Comment: LDL Unable to be calculated K result may show a positive bias due to hemolysis. Specimen slightly hemolyzed. Ordering Provider: SABAS CARRANZA Report Released Date/Time: Oct 13, 2024 11:28 AM Reporting Lab: [facility] [address] [facility] [address] Performing Lab: [facility] [address] [facility] [address] [facility] LIPID PANEL (STL) TRIGLYCERI DE [MASS/VOLU ME] IN SERUM OR PLASMA 224 mg/dL 0 - 150 10/22 H Specimen Type: PLASMA Comment: LDL Unable to be calculated K result may show a positive bias due to hemolysis. Specimen slightly hemolyzed. Ordering Provider: SABAS CARRANZA Report Released Date/Time: Oct 13, 2024 11:28 AM Reporting Lab: [facility] [address] [facility] [address] Performing Lab: [facility] [address] [facility] [address] [facility] LIPID PANEL (STL) CHOLESTERO L IN LDL [MASS/VOLU ME] IN SERUM OR PLASMA BY CALCULATIO N 72 mg/dL 10/22 Specimen Type: PLASMA Comment: LDL Unable to be calculated K result may show a positive bias due to hemolysis. Specimen slightly hemolyzed. Ordering Provider: SABAS CARRANZA Report Released Date/Time: Oct 13, 2024 11:28 AM Reporting Lab: [facility] [address] [facility] [address] Performing Lab: [place] [address] [address] [facility] [address] [facility] LIPID PANEL (STL) CHOLESTERO L IN HDL [MASS/VOLU ME] IN SERUM OR PLASMA 39 mg/dL 40 10/22 L Specimen Type: PLASMA Comment: LDL Unable to be calculated K result may show a positive bias due to hemolysis. Specimen slightly hemolyzed. Ordering Provider: SABAS CARRANZA Report Released Date/Time: Oct 13, 2024 11:28 AM Reporting Lab: [facility] [address] [facility] [address] Performing Lab: [place] [address] [address] [facility] [address] [facility] BASIC METABOLI C PANEL CREATININE [MASS/VOLU ME] IN SERUM OR PLASMA 1.26 mg/dL 0.7 - 1.3 10/22 Specimen Type: PLASMA Comment: LDL Unable to be calculated K result may show a positive bias due to hemolysis. Specimen slightly hemolyzed. Ordering Provider: YAP,FREDERI CK Report Released Date/Time: Oct 13, 2024 11:28 AM Reporting Lab: [facility] [address] [facility] [address] Performing Lab: [facility] [address] [facility] [address] [facility] BASIC METABOLI C PANEL UREA NITROGEN [MASS/VOLU ME] IN SERUM OR PLASMA 16.0 mg/dL 9.0 - 25.0 10/22 Specimen Type: PLASMA Comment: LDL Unable to be calculated K result may show a positive bias due to hemolysis. Specimen slightly hemolyzed. Ordering Provider: SABAS CARRANZA CK Report Released Date/Time: Oct 13, 2024 11:28 AM Reporting Lab: [address] [address] Performing Lab: [place] [address] [facility] [address] [facility] BASIC METABOLI C PANEL GLUCOSE [MASS/VOLU ME] IN SERUM OR PLASMA 165 mg/dL 72 - 99 10/22 H Specimen Type: PLASMA Comment: LDL Unable to be calculated K result may show a positive bias due to hemolysis. Specimen slightly hemolyzed. Ordering Provider: SABAS CARRANZA CK Report Released Date/Time: Oct 13, 2024 11:28 AM Reporting Lab: [place] [address] [facility] [address] Performing Lab: [facility] [address] [facility] [address] [facility] BASIC METABOLI C PANEL SODIUM [MOLES/VOL UME] IN SERUM OR PLASMA 140 meq/L 136 - 145 10/22 Specimen Type: PLASMA Comment: LDL Unable to be calculated K result may show a positive bias due to hemolysis. Specimen slightly hemolyzed. Ordering Provider: SABAS CARRANZA CK Report Released Date/Time: Oct 13, 2024 11:28 AM Reporting Lab: [facility] [address] [facility] [address] Performing Lab: [facility] [address] [facility] [address] [facility] BASIC METABOLI C PANEL POTASSIUM [MOLES/VOL UME] IN SERUM OR PLASMA 4.2 meq/L 3.5 - 5 10/22 Specimen Type: PLASMA Comment: LDL Unable to be calculated K result may show a positive bias due to hemolysis. Specimen slightly hemolyzed. Ordering Provider: SABAS CARRANZA Report Released Date/Time: Oct 13, 2024 11:28 AM Reporting Lab: [facility] [address] [place] [address] Performing Lab: [address] [phone] [place] [address] BASIC METABOLI C PANEL CHLORIDE [MOLES/VOL UME] IN SERUM OR PLASMA 105 meq/L 98 - 107 10/22 Specimen Type: PLASMA Comment: LDL Unable to be calculated K result may show a positive bias due to hemolysis. Specimen slightly hemolyzed. Ordering Provider: SABAS CARRANZA Report Released Date/Time: Oct 13, 2024 11:28 AM Reporting Lab: [address] [address] Performing Lab: [address] [address] [facility] BASIC METABOLI C PANEL CARBON DIOXIDE, TOTAL [MOLES/VOL UME] IN SERUM OR PLASMA 25 meq/L 22 - 10/22 Specimen Type: PLASMA Comment: LDL Unable to be calculated K result may show a positive bias due to hemolysis. Specimen slightly hemolyzed. Ordering Provider: SABAS CARRANZA Report Released Date/Time: Oct 13, 2024 11:28 AM Reporting Lab: [address] [address] Performing Lab: [address] [address] [facility] BASIC METABOLI C PANEL CALCIUM [MASS/VOLU ME] IN SERUM OR PLASMA 9.2 mg/dL 8.4 - 10.4 10/22 Specimen Type: PLASMA Comment: LDL Unable to be calculated K result may show a positive bias due to hemolysis. Specimen slightly hemolyzed. Ordering Provider: SABAS CARRANZA Report Released Date/Time: Oct 13, 2024 11:28 AM Reporting Lab: [facility] [address] [facility] [address] Performing Lab: [place] [address] [place] [phone] [place] [address] DIVISION BASIC METABOLI C PANEL GLOMERULAR FILTRATION RATE/1.73 SQ M.PREDICTE D [VOLUME RATE/AREA] IN SERUM, PLASMA OR BLOOD BY CREATININE -BASED FORMULA (CKD-EPI 2020) 59.1 60 10/22 Specimen Type: PLASMA Comment: LDL Unable to be calculated K result may show a positive bias due to hemolysis. Specimen slightly hemolyzed. Ordering Provider: SABAS CARRANZA Report Released Date/Time: Oct 13, 2024 11:28 AM Reporting Lab: [place] [address] [place] [phone] Performing Lab: [place] [address] [place] [phone] OCCULT BLOOD FIT X1 SCREEN HEMOGLOBIN .GASTROINT ESTINAL.LO WER [PRESENCE] IN STOOL BY IMMUNOASSA Y Negative 11/07 Specimen Type: FECES No comment entered. Ordering Provider: ANGELIC MIGUEL Report Released Date/Time: Oct 11, 2023 09:21 AM Reporting Lab: [place] [address] [place] [phone] Performing Lab: [place] [address] [facility] [phone] [place] [address] DIVISION COMPREHE NSIVE METABOLI C PANEL CREATININE [MASS/VOLU ME] IN SERUM OR PLASMA 1.19 mg/dL 0.70 - 1.30 09/04 Specimen Type: PLASMA Comment: No hemolysis noted. Ordering Provider: ANGELIC MIGUEL Report Released Date/Time: Sep 05, 2023 10:39 AM Reporting Lab: [facility] [place] [address] Performing Lab: [facility] #[address] DIVISION COMPREHE NSIVE METABOLI C PANEL UREA NITROGEN [MASS/VOLU ME] IN SERUM OR PLASMA 17.1 mg/dL 9.0 - 25.0 09/04 Specimen Type: PLASMA Comment: No hemolysis noted. Ordering Provider: ANGELIC MIGUEL Report Released Date/Time: Sep 05, 2023 10:39 AM Reporting Lab: [facility] [place] [address] Performing Lab: [facility] #[address] DIVISION COMPREHE NSIVE METABOLI C PANEL GLUCOSE [MASS/VOLU ME] IN SERUM OR PLASMA 115 mg/dL 72 - 99 09/04 H Specimen Type: PLASMA Comment: No hemolysis noted. Ordering Provider: ANGELIC MIGUEL Report Released Date/Time: Sep 05, 2023 10:39 AM Reporting Lab: [facility] [place] [address] Performing Lab: [facility] #[address] DIVISION COMPREHE NSIVE METABOLI C PANEL SODIUM [MOLES/VOL UME] IN SERUM OR PLASMA 142 meq/L 136 - 145 09/04 Specimen Type: PLASMA Comment: No hemolysis noted. Ordering Provider: ANGELIC MIGUEL Report Released Date/Time: Sep 05, 2023 10:39 AM Reporting Lab: [facility] [place] [address] Performing Lab: [facility] #[address] DIVISION COMPREHE NSIVE METABOLI C PANEL POTASSIUM [MOLES/VOL UME] IN SERUM OR PLASMA 4.3 meq/L 3.5 - 5.0 09/04 Specimen Type: PLASMA Comment: No hemolysis noted. Ordering Provider: ANGELIC MIGUEL Report Released Date/Time: Sep 05, 2023 10:39 AM Reporting Lab: [facility] [place] [address] Performing Lab: [facility] #[address] DIVISION COMPREHE NSIVE METABOLI C PANEL CHLORIDE [MOLES/VOL UME] IN SERUM OR PLASMA 109 meq/L 98 - 107 09/04 H Specimen Type: PLASMA Comment: No hemolysis noted. Ordering Provider: ANGELIC MIGUEL Report Released Date/Time: Sep 05, 2023 10:39 AM Reporting Lab: [facility] [place] [address] Performing Lab: [facility] DIVISION COMPREHE NSIVE METABOLI C PANEL CARBON DIOXIDE, TOTAL [MOLES/VOL UME] IN SERUM OR PLASMA 22 meq/L 22 - 31 09/04 Specimen Type: PLASMA Comment: No hemolysis noted. Ordering Provider: ANGELIC MIGUEL Report Released Date/Time: Sep 05, 2023 10:39 AM Reporting Lab: [facility] [place] [address] Performing Lab: [facility] DIVISION COMPREHE NSIVE METABOLI C PANEL CALCIUM [MASS/VOLU ME] IN SERUM OR PLASMA 9.3 mg/dL 8.4 - 10.4 09/04 Specimen Type: PLASMA Comment: No hemolysis noted. Ordering Provider: ANGELIC MIGUEL Report Released Date/Time: Sep 05, 2023 10:39 AM Reporting Lab: [facility] [place] [address] Performing Lab: [facility] DIVISION COMPREHE NSIVE METABOLI C PANEL PROTEIN [MASS/VOLU ME] IN SERUM OR PLASMA 7.8 g/dL 6.0 - 8.6 09/04 Specimen Type: PLASMA Comment: No hemolysis noted. Ordering Provider: ANGELIC MIGUEL Report Released Date/Time: Sep 05, 2023 10:39 AM Reporting Lab: [facility] [place] [address] Performing Lab: [facility] #[address] DIVISION COMPREHE NSIVE METABOLI C PANEL ALBUMIN [MASS/VOLU ME] IN SERUM OR PLASMA 4.3 g/dL 3.4 - 5.0 09/04 Specimen Type: PLASMA Comment: No hemolysis noted. Ordering Provider: ANGELIC MIGUEL Report Released Date/Time: Sep 05, 2023 10:39 AM Reporting Lab: [facility] [place] [address] Performing Lab: [facility] DIVISION COMPREHE NSIVE METABOLI C PANEL BILIRUBIN. TOTAL [MASS/VOLU ME] IN SERUM OR PLASMA 0.5 mg/dL 0.2 - 1.2 09/04 Specimen Type: PLASMA Comment: No hemolysis noted. Ordering Provider: ANGELIC MIGUEL Report Released Date/Time: Sep 05, 2023 10:39 AM Reporting Lab: [facility] [place] [address] Performing Lab: [facility] DIVISION COMPREHE NSIVE METABOLI C PANEL ALKALINE PHOSPHATAS E [ENZYMATIC ACTIVITY/V OLUME] IN SERUM OR PLASMA 58 U/L 40 - 150 09/04 Specimen Type: PLASMA Comment: No hemolysis noted. Ordering Provider: ANGELIC MIGUEL Report Released Date/Time: Sep 05, 2023 10:39 AM Reporting Lab: [facility] [place] [address] Performing Lab: [facility] DIVISION COMPREHE NSIVE METABOLI C PANEL ASPARTATE AMINOTRANS FERASE [ENZYMATIC ACTIVITY/V OLUME] IN SERUM OR PLASMA 16 U/L 5 - 34 09/04 Specimen Type: PLASMA Comment: No hemolysis noted. Ordering Provider: ANGELIC MIGUEL Report Released Date/Time: Sep 05, 2023 10:39 AM Reporting Lab: [facility] [place] [address] Performing Lab: [facility] DIVISION COMPREHE NSIVE METABOLI C PANEL ALANINE AMINOTRANS FERASE [ENZYMATIC ACTIVITY/V OLUME] IN SERUM OR PLASMA 16 U/L 8 - 40 09/04 Specimen Type: PLASMA Comment: No hemolysis noted. Ordering Provider: ANGELIC MIGUEL Report Released Date/Time: Sep 05, 2023 10:39 AM Reporting Lab: [facility] DIV[facility] #[address] [place] [address] Performing Lab: [facility] DIVISION #[address] DIVISION COMPREHE NSIVE METABOLI C PANEL GLOMERULAR FILTRATION RATE/1.73 SQ M.PREDICTE D [VOLUME RATE/AREA] IN SERUM, PLASMA OR BLOOD BY CREATININE -BASED FORMULA (CKD-EPI 2020) 63.70 60 09/04 Specimen Type: PLASMA Comment: No hemolysis noted. Ordering Provider: ANGELIC MIGUEL Report Released Date/Time: Sep 05, 2023 10:39 AM Reporting Lab: [facility] DIV[facility]1 [place] [address] Performing Lab: [facility] DIV[facility] DIVISION CBC LEUKOCYTES [#/VOLUME] IN BLOOD BY AUTOMATED COUNT 6.5 10*3/uL 3.6 - 11.2 09/04 Specimen Type: BLOOD No comment entered. Ordering Provider: ANGELIC MIGUEL Report Released Date/Time: Sep 05, 2023 10:39 AM Reporting Lab: [facility] DIVISION [facility]1 [place] [address] Performing Lab: [facility] DIVISION #[address] DIVISION CBC ERYTHROCYT ES [#/VOLUME] IN BLOOD BY AUTOMATED COUNT 5.26 10*6/uL 4.10 - 5.70 09/04 Specimen Type: BLOOD No comment entered. Ordering Provider: ANGELIC MIGUEL Report Released Date/Time: Sep 05, 2023 10:39 AM Reporting Lab: [facility] DIVISION [facility]1 [place] [address] Performing Lab: [facility] DIVISION [facility] CBC HEMOGLOBIN [MASS/VOLU ME] IN BLOOD 15.4 g/dL 13.1 - 16.8 09/04 Specimen Type: BLOOD No comment entered. Ordering Provider: ANGELIC MIGUEL Report Released Date/Time: Sep 05, 2023 10:39 AM Reporting Lab: [facility] DIV[facility]1 [place] [address] Performing Lab: [facility] DIVISION #[address] CBC HEMATOCRIT [VOLUME FRACTION] OF BLOOD 45.7 38.2 - 48.4 09/04 Specimen Type: BLOOD No comment entered. Ordering Provider: ANGELIC MIGUEL Report Released Date/Time: Sep 05, 2023 10:39 AM Reporting Lab: [facility] DIV[facility]1 [place] [address] Performing Lab: [facility] DIV[address] CBC MCV [ENTITIC VOLUME] BY AUTOMATED COUNT 86.9 fL 80.0 - 100.0 09/04 Specimen Type: BLOOD No comment entered. Ordering Provider: ANGELIC MIGUEL Report Released Date/Time: Sep 05, 2023 10:39 AM Reporting Lab: [facility] DIV[facility]1 [place] [address] Performing Lab: [facility] DIVISION #[address] DIVISION CBC MCH [ENTITIC MASS] BY AUTOMATED COUNT 29.3 pg 27.0 - 34.0 09/04 Specimen Type: BLOOD No comment entered. Ordering Provider: ANGELIC MIGUEL Report Released Date/Time: Sep 05, 2023 10:39 AM Reporting Lab: [facility] DIV[facility]1 [place] [address] Performing Lab: [facility] DIVISION [facility] DIVISION CBC MCHC [MASS/VOLU ME] BY AUTOMATED COUNT 33.7 g/dL 33.0 - 36.0 09/04 Specimen Type: BLOOD No comment entered. Ordering Provider: ANGELIC MIGUEL Report Released Date/Time: Sep 05, 2023 10:39 AM Reporting Lab: [facility] DIV[facility]1 [place] [address] Performing Lab: [facility] DIVISION #[address] DIVISION CBC PLATELETS [#/VOLUME] IN BLOOD BY AUTOMATED COUNT 204 10*3/uL 150 - 400 09/04 Specimen Type: BLOOD No comment entered. Ordering Provider: ANGELIC MIGUEL Report Released Date/Time: Sep 05, 2023 10:39 AM Reporting Lab: [facility] DIVISION [facility]1 [place] [address] Performing Lab: [facility] DIVISION #[address] [place] [facility] DIV[facility] CBC PLATELET MEAN VOLUME [ENTITIC VOLUME] IN BLOOD BY AUTOMATED COUNT 9.7 fL 7.5 - 11.2 09/04 Specimen Type: BLOOD No comment entered. Ordering Provider: ANGELIC MIGUEL Report Released Date/Time: Sep 05, 2023 10:39 AM Reporting Lab: [facility] DIV[facility]1 [place] [address] Performing Lab: [facility] DIVISION #[address] DIVISION CBC ERYTHROCYT E DISTRIBUTI ON WIDTH [RATIO] BY AUTOMATED COUNT 13.0 11.8 - 15.1 09/04 Specimen Type: BLOOD No comment entered. Ordering Provider: ANGELIC MIGUEL Report Released Date/Time: Sep 05, 2023 10:39 AM Reporting Lab: [facility] DIV[facility]1 [place] [address] Performing Lab: [facility] DIVISION #[address] DIVISION CBC LYMPHOCYTE S/100 LEUKOCYTES IN BLOOD BY AUTOMATED COUNT 15 09/04 Specimen Type: BLOOD No comment entered. Ordering Provider: ANGELIC MIGUEL Report Released Date/Time: Sep 05, 2023 10:39 AM Reporting Lab: [facility] DIV[facility]1 [place] [address] Performing Lab: [facility] DIVISION #[address] DIVISION CBC MONOCYTES/ 100 LEUKOCYTES IN BLOOD BY AUTOMATED COUNT 9 09/04 Specimen Type: BLOOD No comment entered. Ordering Provider: ANGELIC MIGUEL Report Released Date/Time: Sep 05, 2023 10:39 AM Reporting Lab: [facility] DIV[facility]1 [place] [address] Performing Lab: [facility] DIVISION #[address] DIVISION CBC NEUTROPHIL S/100 LEUKOCYTES IN BLOOD BY AUTOMATED COUNT 74 09/04 Specimen Type: BLOOD No comment entered. Ordering Provider: ANGELIC MIGUEL Report Released Date/Time: Sep 05, 2023 10:39 AM Reporting Lab: [facility] DIV[facility]1 [place] [address] Performing Lab: [facility] DIVISION #[address] DIVISION CBC EOSINOPHIL S/100 LEUKOCYTES IN BLOOD BY AUTOMATED COUNT 1 09/04 Specimen Type: BLOOD No comment entered. Ordering Provider: ANGELIC MIGUEL Report Released Date/Time: Sep 05, 2023 10:39 AM Reporting Lab: [facility] DIV[facility]1 [place] [address] Performing Lab: [facility] DIVISION #[address] DIVISION CBC BASOPHILS/ 100 LEUKOCYTES IN BLOOD BY AUTOMATED COUNT 1 09/04 Specimen Type: BLOOD No comment entered. Ordering Provider: ANGELIC MIGUEL Report Released Date/Time: Sep 05, 2023 10:39 AM Reporting Lab: [facility] DIVISION [facility]1 [place] [address] Performing Lab: [facility] DIVISION #[address] DIVISION CBC LYMPHOCYTE S [#/VOLUME] IN BLOOD BY AUTOMATED COUNT 0.99 10*3/uL 0.77 - 4.50 09/04 Specimen Type: BLOOD No comment entered. Ordering Provider: ANGELIC MIGUEL Report Released Date/Time: Sep 05, 2023 10:39 AM Reporting Lab: [facility] DIVISION [facility]1 [place] [address] Performing Lab: [facility] DIVISION #[address] DIVISION CBC MONOCYTES [#/VOLUME] IN BLOOD BY AUTOMATED COUNT 0.61 10*3/uL 0.19 - 0.80 09/04 Specimen Type: BLOOD No comment entered. Ordering Provider: ANGELIC MIGUEL Report Released Date/Time: Sep 05, 2023 10:39 AM Reporting Lab: [facility] DIVISION [facility]1 [place] [address] Performing Lab: [facility] DIVISION #[address] DIVISION CBC NEUTROPHIL S [#/VOLUME] IN BLOOD BY AUTOMATED COUNT 4.81 10*3/uL 2.10 - 8.00 09/04 Specimen Type: BLOOD No comment entered. Ordering Provider: ANGELIC MIGUEL Report Released Date/Time: Sep 05, 2023 10:39 AM Reporting Lab: [facility] DIVISION [facility]1 [place] [address] Performing Lab: [facility] DIVISION #[address] DIVISION CBC EOSINOPHIL S [#/VOLUME] IN BLOOD BY AUTOMATED COUNT 0.04 10*3/uL 0.00 - 0.60 09/04 Specimen Type: BLOOD No comment entered. Ordering Provider: ANGELIC MIGUEL Report Released Date/Time: Sep 05, 2023 10:39 AM Reporting Lab: [facility] DIVISION [facility]1 [place] [address] Performing Lab: [facility] DIVISION #[address] DIVISION CBC BASOPHILS [#/VOLUME] IN BLOOD BY AUTOMATED COUNT 0.03 10*3/uL 0.00 - 0.20 09/04 Specimen Type: BLOOD No comment entered. Ordering Provider: ANGELIC MIGUEL Report Released Date/Time: Sep 05, 2023 10:39 AM Reporting Lab: [facility] DIVISION #1 [place] [address] Performing Lab: [facility] DIVISION #[address] DIVISION TSH W/ REFLEX FT4 (STL) THYROTROPI N [UNITS/VOL UME] IN SERUM OR PLASMA 2.085 u[IU]/mL 0.470 - 5.000 09/04 Specimen Type: PLASMA No comment entered. Ordering Provider: ANGELIC MIGUEL Report Released Date/Time: Sep 05, 2023 10:39 AM Reporting Lab: [facility] DIVISION #1 [facility] [address] Performing Lab: [facility] DIVISION [facility]1 [facility] [address] [facility] VITAMIN B1 THIAMINE [MOLES/VOL UME] IN SERUM OR PLASMA 42 nmol/L 8 - 30 03/13 H Specimen Type: PLASMA Comment: Vitamin supplementa tion within 24 hours prior to blood draw may affect the accuracy of the results. This test was developed and its analytical performance characteris tics have been determined by [employer] [place], [place]. It has not been cleared or approved by the U.S. Food and Drug Administrat ion. This assay has been validated pursuant to the CLIA regulations and is used for clinical purposes. Test Performed by [facility], [employer] [facility], [address] [place], [place] Marcus Doan M.D., Ph.D., Director of Laboratorie s , CLIA [id number] Ordering Provider: IGOR EUCEDA Report Released Date/Time: Mar 13, 2023 09:41 AM Reporting Lab: [facility] DIVISION [address] [facility] [address] Performing Lab: [facility] [address] [facility] B12 COBALAMIN (VITAMIN B12) [MASS/VOLU ME] IN [...] Mar 13, 2023 09:41 AM Reporting Lab: [facility] [address] [facility] [address] Performing Lab: [facility] [address] [facility] [address] [facility] FREE T4 THYROXINE (T4) FREE [MASS/VOLU ME] [...] Mar 13, 2023 09:41 AM Reporting Lab: [facility] [address] [facility] [address] Performing Lab: [address] [address] [facility] VITAMIN D, 25-HYDRO XY 25-HYDROXY VITAMIN D3 [...] Mar 13, 2023 09:41 AM Reporting Lab: [facility] [address] [facility] [address] Performing Lab: [facility] [address] [place] [address] [facility] Vital Signs Combined list of inpatient and outpatient Vital Signs from Department of Defense and Veterans Affairs, ranging from 12 months to all on record, depending upon the facility. Vital Sign Value Date Comments Source SYSTOLIC BLOOD PRESSURE 116 10/13/2024 10:11:17 [facility] DIASTOLIC BLOOD PRESSURE 71 10/13/2024 10:11:17 [facility] PULSE OXIMETRY 95 % 10/13/2024 10:11:17 Paulino DOS [facility] WEIGHT 211 10/13/2024 10:11:17 [facility] Nava RIVERO [facility] BMI 29 kg/m2 10/13/2024 10:11:17 [facility] PAIN 0 10/13/2024 10:11:[address] [facility] TEMPERATURE 98 10/13/2024 10:11:17 [facility] PULSE 65 10/13/2024 10:11:[address] [facility] DIV[facility] RESPIRATION 16 10/13/2024 10:11:17 [facility] SYSTOLIC BLOOD PRESSURE 139 04/14/2024 11:06:17 [facility] DIASTOLIC BLOOD PRESSURE 93 04/14/2024 11:06:17 [facility] PULSE OXIMETRY 94 04/14/2024 11:06:17 Paulino DOS [facility] WEIGHT 217.7 04/14/2024 11:06:[address] [facility] BMI 30 kg/m2 04/14/2024 11:06:[address] [facility] PAIN 0 04/14/2024 11:06:[address] [facility] HEIGHT 72 04/14/2024 11:06:[address] [facility] DIVISION TEMPERATURE 97.3 04/14/2024 11:06:17 [facility] PULSE 98 04/14/2024 11:06:[address] [facility] RESPIRATION 16 04/14/2024 11:06:17 [facility] Encounters Combined list of: 1) Encounters from Department of Veterans Affairs facilities going backup to the last 18 months, not all VA inpatient encounters are included; 2) Encounters from the Department of Defense facilities going backup to 280 months. Location Location Details Encounter Type Encounter Number Reason For Visit Attending Provider ADM Date DC Date Status Disposition Source [facility] Outpatient Encounter [id number] KATH CARL 05/08 [facility] Outpatient Encounter [id number] Diagnos is: ICD-10- CM F03.90 Unsp dementi a, unsp severit y, without beh/psy ch/mood /anx KRISTIAN EUCEDA RID Loki 05/17 [facility] DIV[facility] OFFICE O/P EST MOD 30 MIN [id number] Diagnos is: ICD-10- CM F02.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, unsp sev, with oth beh distrb GURUSIDDAI YA,PRATIBH A N 05/21 [facility] DIV[facility] Outpatient Encounter [id number] 06/09 [facility] Outpatient Encounter [id number] 06/15 [facility] Outpatient Encounter [id number] 06/18 [facility] Outpatient Encounter [id number] JESSICA BOTELLO 08/28 [facility] DIVISION OFFICE O/P EST MOD 30 MIN [id number] Diagnos is: ICD-10- CM F02.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, unsp sev, with oth beh distrb GURUSIDDAI YA,PRATIBH A N 09/01 [facility] O/P EST HI 40 MIN [id number] Diagnos is: ICD-10- CM F03.90 Unsp dementi a, unsp severit y, without beh/psy ch/mood /anx ROYAL MIGUEL M 09/04 [facility] Outpatient Encounter [id number] JAREYHECTOR LINDSEY M 10/10 [facility] Outpatient Encounter [id number] 10/16 [facility] DIVISION OFFICE O/P EST MOD 30 MIN [id number] Diagnos is: ICD-10- CM F03.90 Unsp dementi a, unsp severit y, without beh/psy ch/mood /anx GURUSIDDAI YA,PRATIBH A N 11/03 [facility] Outpatient Encounter [id number] JESSICA BOTELLO S 11/12 [facility] DIVISION OFFICE O/P EST MOD 30 MIN [id number] Diagnos is: ICD-10- CM F03.918 Unsp dementi a, unsp severit y, with other behavio ral disturb GURUSIDDAI YA,PRATIBH A N 01/19 [facility] Outpatient Encounter [id number] Tarah CARRERA 01/29 [facility] Outpatient Encounter [id number] JESSICA BOTELLO 02/26 [facility] Outpatient Encounter [id number] [facility] Outpatient Encounter [id number] 03/30 [facility] DIVIS N [facility] Outpatient Encounter [id number] JESSICA BOTELLO S 04/06 [facility] N [facility] DIVISION OFFICE O/P EST MOD 30 MIN [id number] Diagnos is: ICD-10- CM F03.90 Unsp dementi a, unsp severit y, without beh/psy ch/mood /anx GURUSIDDAI YA,PRATIBH A N 04/07 [facility] En[facility] [id number] 04/07 [facility] N [facility] DIV[facility] OFFICE O/P EST HI 40 MIN [id number] Diagnos is: ICD-10- CM F03.90 Unsp dementi a, unsp severit y, without beh/psy ch/mood /anx ROYAL MIGUEL M 04[facility]14 [facility] Outpatient Encounter [id number] 04/30 [facility] N [facility] Outpatient Encounter [id number] 05/01 [facility] N [facility] Outpatient Encounter [id number] PEREZ FRANK M 05/04 [facility] Encounter [id number] 05/13 [facility] N [facility] Outpatient Encounter [id number] 05/21 [facility] N [facility] Outpatient Encounter [id number] LINDSEY LOVING 05/26 [facility] OFFICE O/P EST LOW 20 MIN [id number] Diagnos is: ICD-10- CM D48.5 Neoplas m of uncerta in behavio r of skin JUSTIN ATKINSON A 06/17 [facility] OFFICE O/P EST MOD 30 MIN [id number] Diagnos is: ICD-10- CM F03.90 Unsp dementi a, unsp severit y, without beh/psy ch/mood /anx GURUSIDDAI YA,PRATIBH A N 07/06 [facility] OFFICE O/P EST LOW 20 MIN [id number] Diagnos is: ICD-10- CM L72.0 Epiderm al cyst ASHLEYIM,TRI R 07/24 [facility] Outpatient Encounter [id number] SONAL BHAT RVENIA A 10/12 [facility] DIVISION OFFICE O/P EST HI 40 MIN [id number] Diagnos is: ICD-10- CM F03.90 Unsp dementi a, unsp severit y, without beh/psy ch/mood /anx JOHNNY CARRANZA ICK 10/13 [facility] PH1 ASSMT&MGMT NQHP 11-20 [id number] Diagnos is: ICD-10- CM F03.90 Unsp dementi a, unsp severit y, without beh/psy ch/mood /anx JASON XIONG Nava 10/23 [facility] N [facility] Outpatient Encounter [id number] Tarah CARRERA 11/04 [facility] N [facility] Outpatient Encounter [id number] 11/05 [facility] Social History Combined list of available smoking, tobacco, and other social history from Department of Defense and [facility] Affairs facilities. Social History Type Response Date Comment Sour e Tobacco smoking status NHIS FL-TOBACCO NEVER USED CIGARETTES 04/14/2024 [facility] History of tobacco use FL-TOBACCO NEVER USED OTHER TYPE 04/14/2024 [facility] History of tobacco use FL-TOBACCO FORMER USER 03/13/2023 [facility] This section is an empty social history section. DoD Plan of Care List of future care activities from Department [facility] Affairs facilities. Additional future care activities may be listed in the Assessment and Plan section. Date/Time Care Activity Care Activity Detail Facili ty 11/09/2024 AMBULATORY - NONE AMBULATORY - NONE [facility] Advance Directives List of completed, amended, or rescinded Advance Directives on record at Department of [facility] Affairs facilities. An actual copy of the Directive is not included. Date Advance Directive Provider Source 03/15/2023 ADVANCE DIRECTIVE BINU SWANSON [facility]
--- OUTSIDE RECORDS SUMMARY | 2024-11-05 11:33 | XMS_ITS | Patient Health Record ---
Author Organization [facility] [employer] Address [address] [facility] [address] [place] [address] Care Team Providers Care Customer Support Coordinator Name Role Phone Patricia Berg Unavailable [phone] Reason For Referral No Information Medications Medication SIG (Take, Route, Frequency, Duration) Notes Start Date End Date Status ARIPiprazole 5 MG Oral 02/01/2023 A ctive Divalproex Sodium 125 MG Oral 02/01/2023 Active Escitalopram Oxalate 10 MG Oral 02/01/2023 Active B-12 1,000 mcg Sublingual *Pick strength-form from [employer] for eRX* 02/01/2023 Active Depakote Sprinkles 125 MG Oral 02/01/2023 Active Immunizations Vaccine Route Administration Date Status Comme nts Moderna Covid-19 Vaccine 1st dose Unknown 11/23/2020 Ad ministered Moderna Covid-19 Vaccine 1st dose Unknown 12/21/2020 Ad ministered Plan Of Treatment No Information Insurance Providers Payer Name Payer Address Payer Phone Subscriber Number Group Number Insured Name Patient Relationship to Insured Coverage Start Date Coverage End Date r [address] [address] [place] [address] [phone] [id number] LUKAS TREVINO Self - patient is the insured Medical (General) History Surgical History Surgery Date(Month/Year) Other 03/25/1969
--- OUTSIDE RECORDS SUMMARY | 2024-11-05 11:33 | XMS_ITS | Encounter Summary ---
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
--- OUTSIDE RECORDS SUMMARY | 2024-11-05 11:33 | XMS_ITS | Clinical Summary ---
Author Organization [facility] Address 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
--- OUTSIDE RECORDS SUMMARY | 2024-11-05 11:33 | XMS_ITS | Encounter Summary ---
Author Name [facility] [place] [facility] [place] Address [address] [place] [address] Care Team Providers Care Electrical Tech/Project Manager Name Role Phone DAMASO CARRANZA Primary [...] PART A Feb 22, 2014 PART A [id number] LUKAS TREVINO PATIENT Selected Encounter This section includes the information on record at [place] for the Encounter. Date/Time Encounter Type Encounter Description Reason Pro vider Source Nov 05, 2024 09:19 AM Outpatient Encounter TELEPHONE/ANCILLARY IHE Encounter Template Text not used by [place] Plan of Treatment: Future Appointments (+ 6 months) and Future Tests (+/- 45 days) The Plan of Treatment section includes future care activities for the patient from all [place] treatmentfacilities. This section includes future appointments and future orders which are active, pending or scheduled. Future Appointments This section includes appointments that were scheduled to occur 6 months from the date of the Encounter, up to a maximum of 20 appointments. The data comes from all [place] treatment facilities. Appointment Date/Time Appointment Type Appointme nt Facility Name Nov 09, 2024 09:00 AM AMBULATORY - NONE [facility] Jan 28, 2025 02:00 PM AMBULATORY - MEDICINE [facility] Apr 15, 2025 10:00 AM AMBULATORY - REHAB MEDICIN E [facility] Active, Pending, and Scheduled Orders This section includes a listing of several types of active, pending, and scheduled orders, including clinic medications orders, diagnostic test orders, procedure orders and consult orders; where the start date of the order is 45 days before the date of the Encounter or 45 days after the date of theEncounter. The data comes from all [place] treatment facilities. Test Date/Time Test Type Test Details Facility Name Oct 13, 2024 12:00 AM Laboratory - Chemi stry Order CBC BLOOD [facility] Oct 13, 2024 12:00 AM Laboratory - Chemi stry Order URINALYSIS W/ CX REFLEX (STL-PB) URN - CLEAN CATCH URINE [facility] Dec 02, 2024 12:00 AM Laboratory - Chemi stry Order BASIC METABOLIC PANEL GREEN LI/HEP BLD/PLAS PLASMA SP [facility] Dec 02, 2024 12:00 AM Laboratory - Chemi stry Order HGA1C BLOOD [facility] Lab Results: +/- 30 days of the encounter This section includes the Chemistry and Hematology Lab Results on record with [place] for the patient. Radiology Reports and Pathology Reports are provided separately, in subsequent sections. Lab Results This section contains the Chemistry/Hematology Results that were resulted 30 days before or 30 daysafter the date of the Encounter. Date/Time Source Result Type Result - Unit Interpretation Reference Range Specimen Type Comment Oct 22, 2024 01:00 PM [facility] BASIC METABOLIC PANEL PLASMA Specimen Type: PLASMA Comment: LDL Unable to be calculated K result may show a positive bias due to hemolysis. Specimen slightly hemolyzed. Ordering Provider: DAMASO CARRANZA Report Released Date/Time: Oct 13, 2024 11:28 AM Reporting Lab: [facility] [address] [facility] [address] Performing Lab: [address] [address] CREATININE 1.26 mg/dL 0.7-1.3 UREA NITROGEN 16.0 mg/dL 9.0-25.0 GLUCOSE 165 mg/dL H 72-99 SODIUM 140 meq/L 136-145 POTASSIUM 4.2 meq/L 3.5-5 CHLORIDE 105 meq/L 98-107 CARBON DIOXIDE 25 meq/L 22-31 CALCIUM 9.2 mg/dL 8.4-10.4 EGFR (CKD-EPI 2020) 59.1 >60 Oct 22, 2024 01:00 PM [facility] LIPID PANEL (STL) PLASMA Specimen Type: PLASM A Comment: LDL Unable to be calculated K result may show a positive bias due to hemolysis. Specimen slightly hemolyzed. Ordering Provider: DAMASO CARRANZA Report Released Date/Time: Oct 13, 2024 11:28 AM Reporting Lab: [facility] [address] [address] Performing Lab: [facility] [address] [facility] [address] CHOLESTEROL 156 mg/dL 0-200 TRIGLYCERIDE 224 mg/dL H 0-150 CALCULATED LDL 72 mg/dL HDL(New) 39 mg/dL L >40 Social History: Smoking Status (Most current) and [...] place. Date/Time Current Smoking Status Comment Miya ity Apr 14, 2024 11:00 AM [place]-TOBACCO NEVER U SED CIGARETTES [facility] Tobacco Use History This section includes a history of the smoking, or tobacco-related health factors, that were collected on or before the date of the Encounter. The data comes from the [place] facility where the Encounter took place. Date/Time Smoking Status/Tobacco Use Comment F acamaris Apr 14, 2024 11:00 AM [place]-TOBACCO NEVER U SED OTHER TYPE [facility] Advance Directives: All historical and current [...] Mar 15, 2023 ADVANCE DIRECTIVE [facility] Encounter Notes: All associated encounter notes This section contains the clinical notes associated to the Encounter. Date/Time Encounter Note(s) Provider Source Nov 05, 2024 09:19 AM MENTAL HEALTH TELE PHONE ENCOUNTER NOTE: LOCAL TITLE: [facility] TELEPHONE [facility] STANDARD TITLE: MENTAL HEALTH TELEPHONE ENCOUNTER NOTE DATE OF NOTE: NOV 05, 2024@09:19 ENTRY DATE: NOV 05, 2024@09:20:27 AUTHOR: OLIVIA SLADE EXP COSIGNER: URGENCY: STATUS: COMPLETED called for reminder of appt. on 11/09/2024. She was very upset saying I never called her for refills and someone, Sary, told her to take the vet to the ER for medication refills. I explained that I am her and received no note or calls about Depakote being refilled. are you calling me a liar? stated escal. I explained that I would have Dr. Jimenez refill the meds for mail and meet her on video next week. /vandana/ OLIVIA SLADE, RN Registered Nurse Signed: 11/05/2024 09:23 Receipt Acknowledged By: * AWAITING SIGNATURE * [facility]
--- OUTSIDE RECORDS SUMMARY | 2024-11-05 11:34 | XMS_ITS | Encounter Summary ---
Author Name [facility] [place] [facility] [place] [facility] [place] Address [address] [place] [address] Care Team Providers Care Csm Consultant Name Role Phone DAMASO CARRANZA Primary Care [...] PART A Feb 22, 2014 PART A [id number] [place] PATIENT Selected Encounter This section includes the information on record at [place] for the Encounter. Date/Time Encounter Type Encounter Description Reason Provider Source Nov 04, 2024 02:55 PM Outpatient Encounter [facility] ASSESSMENT MARCELLA PEDROZA Encounter Template Text not used by [place] Plan of Treatment: Future Appointments (+ 6 months) and Future Tests (+/- 45 days) The Plan of Treatment section includes future care activities for the patient from all [place] treatmentfacilities. This section includes future appointments and future orders which are active, pending or scheduled. Future Appointments This section includes appointments that were scheduled to occur 6 months from the date of the Encounter, up to a maximum of 20 appointments. The data comes from all [place] treatment facilities. Appointment Date/Time Appointment Type Appointme nt Facility Name Nov 09, 2024 09:00 AM [facility] Jan 28, 2025 02:00 PM AM[facility]ULATORY - MEDICINE [facility] Apr 15, 2025 10:00 AM AMBULATORY - REHAB MEDICIN E [facility] Active, Pending, and Scheduled Orders This section includes a listing of several types of active, pending, and scheduled orders, including clinic medications orders, diagnostic test orders, procedure orders and consult orders; where the start date of the order is 45 days before the date of the Encounter or 45 days after the date of theEncounter. The data comes from all [facility] facilities. Test Date/Time Test Type Test Details Facility Name Oct 13, 2024 12:00 AM Laboratory - Chemi stry Order CBC BLOOD [facility] Oct 13, 2024 12:00 AM Laboratory - Chemi stry Order URINALYSIS W/ CX REFLEX (STL-PB) URN - CLEAN CATCH URINE SP [facility] Dec 02, 2024 12:00 AM Laboratory - Chemi stry Order BASIC METABOLIC PANEL GREEN LI/HEP BLD/PLAS PLASMA SP [facility] Dec 02, 2024 12:00 AM Laboratory - Chemi stry Order HGA1C BLOOD SP [facility] Lab Results: +/- 30 days of the encounter This section includes the Chemistry and Hematology Lab Results on record with [place] for the [place]. Radiology Reports and Pathology Reports are provided separately, in subsequent sections. Lab Results This section contains the Chemistry/Hematology Results that were resulted 30 days before or 30 daysafter the date of the Encounter. Date/Time Source Result Type Result - Unit Interpretation Reference Range Specimen Type Comment Oct 22, 2024 01:00 PM [facility] LIPID PANEL (STL) PLASMA Specimen Type: PLASMA Comment: LDL Unable to be calculated K result may show a positive bias due to hemolysis. Specimen slightly hemolyzed. Ordering Provider: DAMASO CARRANZA Report Released Date/Time: Oct 13, 2024 11:28 AM Reporting Lab: [facility] [address] [facility] [address] Performing Lab: [facility] [address] [facility] [address] CHOLESTEROL 156 mg/dL 0-200 TRIGLYCERIDE 224 mg/dL H 0-150 CALCULATED LDL 72 mg/dL HDL(New) 39 mg/dL L >40 Oct 22, 2024 01:00 PM [facility] BASIC METABOLIC PANEL PLASMA Specimen Type: PL ASMA Comment: LDL Unable to be calculated K result may show a positive bias due to hemolysis. Specimen slightly hemolyzed. Ordering Provider: DAMASO CARRANZA Report Released Date/Time: Oct 13, 2024 11:28 AM Reporting Lab: [facility] [address] [facility] [address] Performing Lab: [facility] [address] [facility] [address] CREATININE 1.26 mg/dL 0.7-1.3 UREA NITROGEN 16.0 mg/dL 9.0-25.0 GLUCOSE 165 mg/dL H 72-99 SODIUM 140 meq/L 136-145 POTASSIUM 4.2 meq/L 3.5-5 CHLORIDE 105 meq/L 98-107 CARBON DIOXIDE 25 meq/L 22-31 CALCIUM 9.2 mg/dL 8.4-10.4 EGFR (CKD-EPI 2020) 59.1 >60 Advance Directives: All historical and current Section [...] Mar 15, 2023 ADVANCE DIRECTIVE [facility] Encounter Notes: All associated encounter notes This section contains the clinical notes associated to the Encounter. Date/Time Encounter Note(s) Provider Source Nov 04, 2024 10:25 AM GERIATRIC MEDICINE NOTE: LOCAL TITLE: PERSONAL CARE SERVICES CASE MIX TOOL STANDARD TITLE: GERIATRIC MEDICINE NOTE DATE OF NOTE: NOV 04, 2024@10:25 ENTRY DATE: NOV 04, 2024@14:55:25 AUTHOR: MARCELLA PEDROZA EXP COSIGNER: URGENCY: STATUS: COMPLETED Applying for [facility]. BS Case Mix & Budget Tool (CASE MIX) Date Given: 11/04/2024 Clinician: Marcella Pedroza Location: [facility] Staff : Trevor Hays SSN: [id number] : [birth year]) Gender: Man Type of Evaluation: Annual Anticipated Start Date: 11/04/2024 Anticipated Length of Service: 6 months Case Mix Level: D ADL Category: Medium Questions and Answers: Q1. DRESSING *2 Need some help from another person to put your clothes on. Q2. GROOMING *2 Needs and get daily help from another person. Q3. BATHING *4 Need and get help washing and drying your body. Q4. EATING *2 Need and get help in cutting food, buttering bread or arranging food. Q5. BED MOBILITY 0 Can move in bed without any help. Q6. TRANSFERRING 1 Need somebody to be there to guide you but can move in and out of a bed or chair. Q7. WALKING 1 Can walk with help of a cane, walker, crutch, or push wheelchair. Q8. BEHAVIOR 1 Occasional staff intervention / anxious, irritable, lethargic, demanding / responds to cues. Q9. COMMUNICATION 2 Sometimes Understood. Q10. TOILETING *6 Wet your pants and have bowel movements in your clothes very often. Q11. MDS HC 2.0/CPS Cognitive Skill for Daily Decision Making 3 Severely Impaired - never/rarely made decisions. Q12. MDS 2.0/CPS: Short Term Memory (recall of what was learned or known) 1 Memory problem Q13. SPECIAL TREATMENTS 0 No [place] Q14. CLINICAL MONITORING 0 Less than once a day Q15. SPECIAL NURSING No Q16. NEUROMUSCULAR DIAGNOSIS No COMMENTS [place] DIAGNOSIS: N/A SOURCES 1. Person, 2. Informant, 3. Medical Record /es/ MARCELLA PEDROZA Safety Coordinator Signed: 11/04/2024 14:56 MARCELLA PEDROZA [facility]
--- OUTSIDE RECORDS SUMMARY | 2024-11-05 11:34 | XMS_ITS | Encounter Summary ---
Author Name [facility] Organization [facility]) Address [address], [place] [address] Care Team Providers Care Poultry Hatchery Manager Name Role Phone DAMASO CARRANZA Primary [...] PART A Feb 22, 2014 PART A [id number] LUKAS HAYS PATIENT Selected Encounter This section includes the information on record at ID for the Encounter. Date/Time Encounter Type Encounter Description Reason Provider Source Oct 13, 2024 10:00 AM OFFICE O/P EST HI 40 MIN GERIPACT ICD-10-CM F03.90 Unsp dementia, unsp severity, without beh/psych/mood /anx DAMASO CARRANZA Melly Encounter Template Text not used by ID Assessments - Encounter Diagnoses This section includes the primary and secondary diagnoses documented for the Encounter. Date/Time Primary/Secondary Diagnosis Diagnosis Name Provider Source Oct 13, 2024 01:06 PM PRIMARY Unsp dementia, unsp severity, without beh/psych/mood/anx DAMASO CARRANZA [facility] Oct 13, 2024 01:06 PM SECONDARY Full incontinence of feces [facility] Oct 13, 2024 01:06 PM SECONDARY Hyperlipidemia, unspecified [facility] Oct 13, 2024 01:06 PM SECONDARY Personal history of malignant neoplasm of prostate [facility] Oct 13, 2024 01:06 PM SECONDARY Unspecified urinary incontinence [facility] Plan of Treatment: Future Appointments (+ 6 months) and Future Tests (+/- 45 days) The Plan of Treatment section includes future care activities for the patient from [facility]. This section includes future appointments and future orders which are active, pending or scheduled. Future Appointments This section includes appointments that were scheduled to occur 6 months from the date of the Encounter, up to a maximum of 20 appointments. The data comes from all [facility]. Appointment Date/Time Appointment Type Appointme nt Facility Name Nov 09, 2024 09:00 AM AMBULATORY - NONE [facility] Jan 28, 2025 02:00 PM AMBULATORY - MEDICINE [facility] Apr 15, 2025 10:00 AM AMBULATORY - REHAB MEDICIN E [facility] Active, Pending, and Scheduled Orders This section includes a listing of several types of active, pending, and scheduled orders, including clinic medications orders, diagnostic test orders, procedure orders and consult orders; where the start date of the order is 45 days before the date of the Encounter or 45 days after the date of theEncounter. The data comes from all [facility]. Test Date/Time Test Type Test Details Facility Name Oct 13, 2024 12:00 AM Laboratory - Chemi stry Order CBC BLOOD [facility] Oct 13, 2024 12:00 AM Laboratory - Chemi stry Order URINALYSIS W/ CX REFLEX (STL-PB) URN - CLEAN CATCH URINE [facility] Lab Results: +/- 30 days of the encounter This section includes the Chemistry and Hematology Lab Results on record with ID for the patient. Radiology Reports and Pathology Reports are provided separately, in subsequent sections. Lab Results This section contains the Chemistry/Hematology Results that were resulted 30 days before or 30 daysafter the date of the Encounter. Date/Time Source Result Type Result - Unit Interpretation Reference Range Specimen Type Comment Oct 22, 2024 01:00 PM [facility] BASIC METABOLIC PANEL PLASMA Specimen Type: PLASMA Comment: LDL Unable to be calculated K result may show a positive bias due to hemolysis. Specimen slightly hemolyzed. Ordering Provider: DAMASO CARRANZA Report Released Date/Time: Oct 13, 2024 11:28 AM Reporting Lab: [facility] [address] [facility] [place] [id number] Performing Lab: [facility] [address] [facility] [place] [place] [place] [address] CREATININE 1.26 mg/dL 0.7-1.3 UREA NITROGEN 16.0 mg/dL 9.0-25.0 GLUCOSE 165 mg/dL H 72-99 SODIUM 140 meq/L 136-145 POTASSIUM 4.2 meq/L 3.5-5 CHLORIDE 105 meq/L 98-107 CARBON DIOXIDE 25 meq/L 22-31 CALCIUM 9.2 mg/dL 8.4-10.4 EGFR (CKD-EPI 2020) 59.1 >60 Oct 22, 2024 01:00 PM [facility] LIPID PANEL (STL) PLASMA Specimen Type: PLASM A Comment: LDL Unable to be calculated K result may show a positive bias due to hemolysis. Specimen slightly hemolyzed. Ordering Provider: DAMASO CARRANZA Report Released Date/Time: Oct 13, 2024 11:28 AM Reporting Lab: [address] [address] Performing Lab: [address] [address] CHOLESTEROL 156 mg/dL 0-200 TRIGLYCERIDE 224 mg/dL H 0-150 CALCULATED LDL 72 mg/dL HDL(New) 39 mg/dL L >40 Vital Signs: All taken on the encounter date This section contains inpatient and outpatient Vital Signs collected on the date of the Encounter. Date/Time Temperature Pulse Blood Pressure Respiratory Rate SP02 Pain Height Weight Body Mass Index Source Oct 13, 2024 10:21 AM 119/75 mm[Hg] [facility] Oct 13, 2024 10:11 AM 98 F 65 /min 116/71 mm[Hg] 16 /min 95 % 0 211 lb 29 [facility] Social History: Smoking Status (Most current) and Tobacco Use (All prior to encounter date) This section includes the most current, and the historical, smoking and tobacco- related health factors from the ID facility where the Encounter took place. Current Smoking Status This section includes the most current smoking, or tobacco-related health factor, from the ID facility where the Encounter took place. Date/Time Current Smoking Status Comment Miya ity Apr 14, 2024 11:00 AM ID-TOBACCO NEVER U SED CIGARETTES [facility] Tobacco Use History This section includes a history of the smoking, or tobacco-related health factors, that were collected on or before the date of the Encounter. The data comes from the ID facility where the Encounter took place. Date/Time Smoking Status/Tobacco Use Comment F tommyamaris Apr 14, 2024 11:00 AM ID-TOBACCO NEVER U SED OTHER TYPE [facility] Advance Directives: All historical and current Section Date Range: From patient's date of to the date document was created. This section includes ALL of a patient's completed or amended ID Advance and Rescinded Directives. The entries below indicate that a directive exists for the patient, but an actual copy is not included with this document. The data comes from all ID facilities. Date Advance Directives Provider Source Mar 15, 2023 ADVANCE DIRECTIVE [facility] Encounter Notes: All associated encounter notes This section contains the clinical notes associated to the Encounter. Date/Time Encounter Note(s) Provider Source Nov 01, 2024 04:28 PM LETTERS: LOCAL TITLE: TEST RESULT GERIATRIC LETTER [facility] STANDARD TITLE: LETTERS DATE OF NOTE: NOV 01, 2024@16:28 ENTRY DATE: NOV 01, 2024@16:28:07 AUTHOR: DAMASO CARRANZA COSIGNER: URGENCY: STATUS: COMPLETED [facility] [address] [place] [address] NOV 01, 2024 LUKAS HAYS [address] [place] [id number] Dear Mr. Lukas Hays, I would like to update you on your recent test results from your last geriatric clinic visit. LIPID PROFILE - High cholesterol and triglycerides (lipids) are risk factors for heart disease. Your cholesterol should fall between 140 and 200, and your triglycerides levels should be less than or equal to 150. HDL is the good cholesterol and should ideally be greater than 40. LDL is the bad cholesterol and optimal levels should be less than 100 (near optimal is between 100 and 129). TRIGLYCERIDE 224 H mg/dL 10/22/2024 13:00 CHOLESTEROL 156 mg/dL 10/22/2024 13:00 HDL(New) 39 L mg/dL 10/22/2024 13:00 DIRECT LDL 148 mg/dL 03/13/2023 10:15 CALCULATED LDL 72 mg/dL 10/22/2024 13:00 DIRECT LDL 148 mg/dL 03/13/2023 10:15 LDL cholesterol level is at goal. HDL cholesterol level is low. This is not a new finding. Triglyceride level is elevated. CHEM 7 - This is important information about the current status of your kidneys, liver, and electrolyte and acid/base balance as well as of your blood sugar and blood proteins. SODIUM 140 mEq/L 10/22/2024 13:00 POTASSIUM 4.2 mEq/L 10/22/2024 13:00 CHLORIDE 105 mEq/L 10/22/2024 13:00 UREA NITROGEN 16.0 mg/dL 10/22/2024 13:00 CREATININE 1.26 mg/dL 10/22/2024 13:00 CALCIUM 9.2 mg/dL 10/22/2024 13:00 CARBON DIOXIDE 25 mEq/L 10/22/2024 13:00 GLUCOSE 165 H mg/dL 10/22/2024 13:00 EGFR (CKD-EPI 2020) 59.1 10/22/2024 13:00 Nonfasting blood sugar is elevated. Reading looks higher when compared to previous results. Kidney function appears impaired. When compared to previous readings, there has been some decrease in creatinine level. This may be caused by inadequate hydration. Electrolytes are within normal limits. PLAN Please continue your treatment as we discussed during your visit. Drink at least 64 ounces of water daily. Come to the ID laboratory for repeat blood test in 1 month. If you have any questions please call your case worker. I look forward to seeing you at your next clinic appointment. Thank you for choosing the [facility] for your healthcare. FUTURE APPOINTMENTS: 11/09/2024 09:00 [facility]ICA-RHONDA HARRISON 01/28/2025 14:00 JOSUE CLAYTON 04/15/2025 10:00 ANGELICA-PACT KAYCEE 2 PCP Sincerely, DAMASO CARRANZA M.D. STAFF PHYSICIAN LUKAS VALENZUELA [facility] Oct 13, 2024 10:56 AM GERIATRIC MEDICINE NOTE: LOCAL TITLE: GERIATRIC PACT CLINIC [facility] STANDARD TITLE: GERIATRIC MEDICINE NOTE DATE OF NOTE: OCT 13, 2024@10:56 ENTRY DATE: OCT 13, 2024@10:56:17 AUTHOR: DAMASO CARRANZA EXP COSIGNER: URGENCY: STATUS: COMPLETED Date of Visit: 10/13/24 10:00 Patient's SSN:[id number] BELINDALUKAST is a 74 year old WHITE MALE. : Apr CC:74 MALE dementia diangosed 3 years, HLD, and a hx of prostate cancer status post radiation therapy in 2022 who presents to clinic with his and granddaughter for routine follow up. Spits pills into the water from time to time. Needs frequent cues to take pills. Needs assistance with dressing, showers, toileting. Independent with transfers and feeding. Incontinent with stool and urine. Wears pullups. Paces during the night. Sleeps one hour intermittently. Gets WAIST PLEATER 11 hours a week. Wandered off one day last month and lisa found him one mile down the road sitting in a ditch. No injuries. BM regular. +hallucination. states that there has been further decline in cognition. No bed sores. No dysuria. Sees Dr. Guerra at [facility] for primary care. has noticed increased hallucination the past 2 weeks. No fever. Describes urine odor as stronger. No flank pain. to call MH provider for renewal of divalproex. has become more selective with the food that he eats. Denies pain. PMH/Problem list: 1) Exposure to potentially hazardous substance 2) Dementia ([facility] [id number]) Mobility: Independent without assistive device SH: Lives with Family; no tobacco. no alcohol. . Medication Reconciliation Opt STL: I have reviewed the patient's medication list (including active outpatient prescriptions dispensed from this [facility] (local) and dispensed from another ID or DoD facility (remote) as well as inpatient orders (local pending and active), local clinic medications, locally documented non-VA medications, and local prescriptions that have or been discontinued in the past 90 days.) with the patient and/or his/her care-vocational psychologist. Handwritten corrections, additions and/or deletions were made to the list, as appropriate. Corrected Outpatient Medication List was provided to the patient/caregiver. Active Outpatient Medications (including Supplies): Active Outpatient Medications Status 1) ARIPIPRAZOLE 5MG TAB TAKE ONE TABLET BY MOUTH ONCE A DAY ACTIVE Indication: MOOD STABLIZER 2) ATORVASTATIN CALCIUM 40MG TAB TAKE ONE-HALF TABLET BY MOUTH ACTIVE EVERY EVENING Indication: FOR HIGH CHOLESTEROL 3) BRIEF,PROTECTIVE SUPER ABS LG ATTENDS USE 1 BRIEF TO ACTIVE AFFECTED AREA(S) TWICE DAILY NEEDED Indication: FOR INCONTINENCE 4) DIVALPROEX NA 125MG SPRINKLE CAP TAKE [...] BY MOUTH EVERY ACTIVE MORNING AND EVENING Indication: FOR ALZHEIMER DISEASE 8) MULTIVITAMIN CAP/TAB TAKE 1 TABLET BY MOUTH ONCE A DAY ACTIVE Indication: FOR NUTRITION/DIETARY SUPPLEMENTATION Allergies: Patient has answered NKA FH: Noncontributory ROS: Change in weight:weight loss few pounds Appetite:good Dysphagia (specify with or without CVA):none Dentition:no dentures Sleep:interrupted because of pacing Vision:glasses Hearing:no hearing aids Wounds/Ulcers:none Peripheral neuropathy (specify with or without DM):none Constipation:regular. Incontinence:stool and urine Nocturia: patient paces at night and has urinary incontinence. Fear of falling:none Assistive devices:none Recent Hospitalizations:none Recent ER Visits:none Physical Exam: VS:VITAL SIGNS DETAILED DISPLAY Date Vital Measurement Qualifiers 10/13/2024 10:21 BP 119/75 Standing 10/13/2024 10:11 Temp F (C) 98 (36.7) Pulse 65 Respir 16 BP 116/71 Wt lbs (kg)[BMI] 211 (95.71)[29*] Pain 0 POx (L/Min)(%) 95 VITAL SIGNS SELECTED No selection items chosen for this component. 119/75 (10/13/2024 10:21)65 (10/13/2024 10:11)95% (10/13/2024 10:11)16 (10/13/2024 10:11)98 F [36.7 C] (10/13/2024 10:11) Measurement DT WEIGHT LB(KG)[BMI] 10/13/2024 10:11 211(95.71)[29*] 04/14/2024 11:06 217.7(98.75)[30*] Measurement DT BP 10/13/2024 10:21 119/75 10/13/2024 10:11 116/71 04/14/2024 11:06 126/88 GS:alert, oriented to person, not in distress. Had difficulty recognizing his granddaughter. Follows simple commands. HEENT:pinkish conjunctivae,no scleral icterus. TMs intact, cerumen noted in the right auditory canal. Neck:no JVD, no bruit. JVP does not appear elevated. Heart:regular, no gallops. Lungs:clear, nonlabored breathing. No crackles or wheezes. Abdomen:soft, non distended, non tender. No CVA tenderness. Extremities: Trace to 1+ ankle edema. FROM hips and knees. Muscle strength symmetric. Gait:non ataxic, non antalgic. Adequate foot clearance, 3 step turn. No shuffle. Neuro:grossly non focal. Rigidity noted both upper extremities without tremors. Unable to name the days of the week backwards even with verbal cues. Labs: Chem 7:SODIUM 142 mEq/L 09/05/2023 11:25 POTASSIUM 4.3 mEq/L 09/05/2023 11:25 CHLORIDE 109 H mEq/L 09/05/2023 11:25 UREA NITROGEN 17.1 mg/dL 09/05/2023 11:25 CREATININE 1.19 mg/dL 09/05/2023 11:25 CALCIUM 9.3 mg/dL 09/05/2023 11:25 CARBON DIOXIDE 22 mEq/L 09/05/2023 11:25 GLUCOSE 115 H mg/dL 09/05/2023 11:25 EGFR (CKD-EPI 2020) 63.70 09/05/2023 11:25 CBC: WBC 6.5 10*3/uL 09/05/2023 11:25 RBC 5.26 10*6/uL 09/05/2023 11:25 HGB 15.4 g/dL 09/05/2023 11:25 HCT 45.7 % 09/05/2023 11:25 MCV 86.9 fL 09/05/2023 11:25 MCH 29.3 pg 09/05/2023 11:25 MCHC 33.7 g/dL 09/05/2023 11:25 RDW 13.0 % 09/05/2023 11:25 PLT 204 10*3/uL 09/05/2023 11:25 MPV 9.7 fL 09/05/2023 11:25 NEUTROPHILS, AUTO % 74 % 09/05/2023 11:25 LYMPHOCYTES, AUTO % 15 % 09/05/2023 11:25 MONOCYTES, AUTO % 9 % 09/05/2023 11:25 EOSINOPHILS, AUTO % 1 % 09/05/2023 11:25 BASOPHILS, AUTO % 1 % 09/05/2023 11:25 NEUTROPHILS, ABSOLUTE 4.81 10*3/uL 09/05/2023 11:25 LYMPHOCYTES, ABSOLUTE 0.99 10*3/uL 09/05/2023 11:25 MONOCYTES, ABSOLUTE 0.61 10*3/uL 09/05/2023 11:25 EOSINOPHILS, ABSOLUTE 0.04 10*3/uL 09/05/2023 11:25 BASOPHILS, ABSOLUTE 0.03 10*3/uL 09/05/2023 11:25 PSA: PROST. SPECIFIC AG.(PB-STL) 0.102 ng/mL 03/13/2023 10:15 Cholesterol: CHOLESTEROL 212 H mg/dL 03/13/2023 10:15 HDL: 35 mg/dL L (03/13/23 10:15) LDL: CALCULATED LDL comment mg/dL 03/13/2023 10:15 Trigs: 273 mg/dL H (03/13/23 10:15) HBA1C: HGA1C 5.6 % 03/13/2023 10:15 B12 448 pg/mL 03/13/2023 10:15 Chest X-ray: No Impressions found Assessment: Dementia (SCT [id number]) - Unspecified dementia, unspecified severity, without behavioral disturbance, psychotic disturbance, mood disturbance, and anxiety (ICD-10-CM F03.90) (Primary)-advanced dementia Hyperlipidemia (SCT [id number]) - Hyperlipidemia, unspecified (ICD-10-CM E78.5) History of malignant neoplasm of prostate (SCT [id number]) - Personal history of malignant neoplasm of prostate (ICD-10-CM Z85.46)-status post radiation therapy. Follows with non-VA urologist. Urinary incontinence (SCT [id number]) - Unspecified urinary incontinence (ICD-10- CM R32.) Full Incontinence of Feces (ICD-10-CM R15.9)-due to dementia Plan: Suggested using a tracker such as air tag to track 's movements. Keep doors secure at night. needs 24/7 supervision. Medications reconciled and prescriptions renewed. Should pill burden become significant, may consider stopping atorvastatin and cholecalciferol in the future. conveyed understanding. follows with non-VA primary care provider and urologist. The latter monitors patient's PSA. CBC, BMP, lipid panel and clean-catch urinalysis requested. Consider scheduled or prompted voiding. [place]wick wears pull-ups. Redirect patient as needed. RTC 6 months and as needed. Type of Evaluation: Geriatric Follow-up WHAT MATTERS What Matters was assessed and acted on at this visit. Other: Comment: unable to answer due to advanced dementia. MEDICATIONS Medications were assessed and acted on at this visit. Comment: Medications reconciled MENTATION - DEMENTIA Dementia was assessed and acted on at this visit. ======= AD8 (Ascertain Dementia 8 Informant Questionnaire) ======= 2 1. Problems with judgement (e.g., problems making decisions, bad financial decisions, problems with thinking) YES, a change 2. Less interest in hobbies/activities NO, no change 3. Repeats the same things over [...] with thinking and/or memory YES, a change MOBILITY Mobility was assessed and acted on at this visit. -HLM ([facility] - Highest Level of Mobility) 7 - Walked 25 feet or more (walked outside room) Herpes Zoster (Shingles) Vaccine - L,N,P,PH,U: Defer due to a PRECAUTION Reason: will verify with Dr. Guerra if received this vaccine in the past Pneumococcal Conjugate Vaccine (PCV15/PCV20/PCV21) - L,N,P,PH,U: Defer due to a PRECAUTION Reason: to verify with non-VA PCP if had received this vaccine in the past. /vandana/ DAMASO CARRANZA M.D. STAFF PHYSICIAN ECRS Signed: 10/13/2024 13:17 DAMASO CARRANZA [facility] Oct 13, 2024 10:16 AM NURSING NOTE: LOCAL TITLE: V15 PACT FACE TO FACE NOTE STL STANDARD TITLE: NURSING NOTE DATE OF NOTE: OCT 13, 2024@10:16 ENTRY DATE: OCT 13, 2024@10:16:58 AUTHOR: MISTY BHAT COSIGNER: URGENCY: STATUS: COMPLETED Provider Visit: Patient Identifiers : Full Name Date of Reason for visit: Routine visit Established Follow-Up Mode of Arrival: Assistive Device: Cane Allergy Review: ALLERGIES/ADVERSE REACTIONS - NONE FOUND Allergy list reviewed and remains current. Recent Vital Signs: Temperature: 98 F [36.7 C] (10/13/2024 10:11) Pulse: 65 (10/13/2024 10:11) Respiration: 16 (10/13/2024 10:11) B/P: 116/71 (10/13/2024 10:11) Pain: 0 (10/13/2024 10:11) Wt: 211 lb [95.71 kg] (10/13/2024 10:11) Ht: 72 in [182.9 cm] (04/14/2024 11:06) BMI: 28.7 POX: 95% (10/13/2024 10:11) Would you like to discuss any personal problem, family problem, alcohol use, drug use, or a mental or emotional illness? No Contact provided Primary Care phone number and encouraged to call if any questions or concerns. Review that after hours nurse line [phone] and emergency room are available 15/10 for patient use. Contact verbalized good understanding. Homelessness/Food Insecurity Screen - DI,L,N,P,PH,PS,S,U: In the past 2 months, have you [...] Not worried about housing near future The [facility] reports the following: Within the past 12 months, you worried whether your food would run out before you got money to buy more. Never true Within the past 12 months, the food you bought just didn't last and you didn't have money to get more. Never true Frail/Elderly Screen: ADL Screen - Wei Index of [place] in Activities of Daily Living Bathing: (2 Points) Receives assistance in bathing only one part of the body (such as back or leg) Dressing: (2 Points) Gets clothes and gets dressed without assistance, except for assistance with tying shoes. Toileting: (3 Points) Goes to toilet room, cleans self, and arranges clothes without assistance (may use object for support such as cane, walker, or wheelchair, and may manage own night bedpan or commode, emptying same next morning) Transferring: (3 Points) Moves in and out of bed and in and out of chair without assistance (may be using object for support, such as cane or walker) Continence: (2 Points) Has occasional accidents or urination or bowels Feeding: (3 Points) Feeds self without assistance Total Score: 15 Points 18 = High (patient independent) 6 [...] by others. Mode of transportation: (0 points) Does not travel at all. Responsibility for own medications: (0 points) Is not capable of dispensing own medication. Ability to handle finances: (0 points) Incapable of handling money. Total score: 0 points 8 = High function, independent 0 = Low function, dependent Falls Screen: No falls within the past 12 months. Incontinence Screen: YES - Incontinence is a problem for this patient. Is urinary incontinence NEW for this patient? NO - Incontinence is NOT a new problem. What is the current treatment? Depends PC [facility] - PHP MAP: PERSONAL HEALTH PLAN INVENTORY & MAP == 's Response: Family /es/ MISTY BHAT LPN LICENSED PRACTICAL NURSE Signed: 10/13/2024 10:20 MISTY BHAT [facility]
[2024-11-05 11:55] LABS: Alanine Aminotransferase 31 U/L (6-50); Aspartate Amino Transferase 42 U/L (17-59)
== END 2024-11-05 11:14 | disposition home or self-care (01) ==
LOC: ANHLAB 11:16
PROVIDERS: PCP Family Medicine; Visit Provider Podiatrist Foot & Ankle Surgery
DX: B35.1 Tinea unguium (principal)
CPT/HCPCS: 36415; 84450; 84460

== ENCOUNTER 2025-02-25 12:01 | Outpatient (CLI) | payer MEDICARE, OTHER, SELFPAY ==
[2025-02-25 12:28] LABS: Hematocrit 44.1 % (42.0-52.0); Hemoglobin 14.5 g/dL (14.0-18.0); Immature Granulocyte Percent A 0.2 % (0-0.5); Lymphocytes Absolute Auto 0.85 K/mm3 (0.9-3.2); Mean Corpuscular HGB Conc 32.9 g/dl (32-36); Mean Corpuscular Hemoglobin 29.1 pg (26-34); Mean Corpuscular Volume 88.4 fl (80-100); Nucleated Red Blood Cells Absolute Auto 0.000 K/mm3 (0.0-0.012); Nucleated Red Blood Cells Perc 0.0 % (0.0-0.2); Platelet Count Result 208 k/mm3 (150-375); Red Blood Count 4.99 M/mm3 (4.6-6.20); White Blood Count 4.9 K/mm3 (4.5-10.0)
[2025-02-25 12:32] LABS: Add Urine Microscopic? YES; Appearance Urine Clear (Clear); Glucose Urine UA Negative (Negative); Leukocyte Esterase Ur Negative LEU/UL (Negative); Nitrate Urine Negative (Negative); Non Pathogenic Casts 0-2; Specific Grav Ur 1.020 (1.001-1.035)
[2025-02-25 12:44] LABS: Alanine Aminotransferase 21 U/L (6-50); Albumin Level 4.2 g/dL (3.5-5.1); Alkaline Phosphatase 55 U/L (38-126); Anion Gap 3 mmol/L (4-12); Aspartate Amino Transferase 28 U/L (17-59); Bilirubin,Total 0.7 mg/dL (0.2-1.3); Blood Urea Nitrogen 18 mg/dL (9-20); Calcium 9.3 mg/dL (8.4-10.2); Carbon Dioxide 31 mmol/L (22-30); Chloride 107 mmol/L (98-107); Estimated Glomerular Filt Rate 59; Glucose 154 mg/dL (65-110); Potassium 3.9 mmol/L (3.4-5.0); Sodium 141 mmol/L (137-145); Total Protein 7.6 g/dL (6.3-8.2)
== END 2025-02-25 12:02 | disposition home or self-care (01) ==
LOC: ANHLAB 12:02
PROVIDERS: PCP Family Medicine
DX: F03.90 Unspecified dementia, unspecified severity, without behavioral disturbance, psychotic disturbance, mood disturbance, and anxiety (principal); R32 Unspecified urinary incontinence; R53.83 Other fatigue
CPT/HCPCS: 36415; 80053; 81001; 85025; 87086